=== PATIENT | male | born 1965 | race Caucasian/White ===

== ENCOUNTER 2020-02-22 09:25 | Day surgery (SDC) | payer OTHER, SELFPAY ==
--- NOTE | 2020-02-22 | CT_ITS ---
EXAMINATION: CT COLONOGRAPHY CLINICAL INFORMATION: Incomplete colonoscopy. Partially obstructing mass. COMPARISON: None TECHNIQUE: Bowel preparation: There is retained material. Some of the distal colon is fluid-filled and unevaluable. There is some retained material in the cecum. Stool tagging with Gastrografin and barium: Stool tagging was not used. Colonic distention: CO2 mechanical insufflator used via enema tube with adequate distention. Acquisition: Low dose imaging targeted to colonic was performed in the supine and prone positions. Procedure: No immediate complication reported. Review: The acquired images were reviewed in axial, coronal and sagittal planes. Additional 3-D fly through images were reviewed at an independent workstation. This CT examination was performed using dose optimization techniques as appropriate, variously including the following: *Automated exposure control *Adjustment of mA and/or kV according to patient size (this includes techniques or standardized protocols for targeted exams where dose is matched to indication/reason for exam; i.e. extremities or head) *Use of iterative reconstruction technique DLP: 625 mGy-cm FINDINGS: COLONIC FINDINGS: There is a 4.6 cm long irregular circumferential mass in the proximal colon just prior to the hepatic flexure. This is highly suspicious for malignancy. There is stranding and nodularity in the adjacent mesentery suspicious for adenopathy and I suspect extension through the serosa. There is some wall thickening and muscular hypertrophy in the sigmoid colon suggesting diverticular disease. As described, fluid occupies the entire lumen in portions of the distal colon. This precludes assessment. No convincing suspicious mass or polyp in the colon proximal to the above-described mass. NON-COLONIC FINDINGS: There is no convincing liver lesion. As described, there is some nodularity in the mesentery adjacent to the partially obstructing colonic mass. There are a few nonenlarged retroperitoneal lymph nodes which are nonspecific. No definite measurable omental or peritoneal disease. No free fluid. There are reticular, band-like and nodular lung base opacities. Some of these findings are fibrotic. There is some small airway thickening. However, there are at least a few small nodules which are nonspecific. In this setting, pulmonary metastasis cannot be excluded. CT/CT colonography IMPRESSION: 1. There is an irregular circumferential mass causing narrowing in the proximal colon just prior to the hepatic flexure. This is highly concerning for malignancy. I suspect spread through the serosa with some nodularity in the adjacent mesentery. No convincing hepatic metastasis on this nonenhanced exam. 2. Lung bases abnormalities are nonspecific. Pulmonary metastases cannot be entirely excluded. 3. No evidence of additional disease proximal to the above-described mass.
[2020-02-22 09:30] VITALS: BP 133/86; PULSE 105; RESP 18; TEMP 37.2; O2SAT 95; BMI 35.4
--- NOTE | 2020-02-22 09:33 | MHC.SHP ---
Pre-Procedural Eval Section A The patient is an INPATIENT: No The History & Physical has been completed within 30 days and I have reviewed it.: No Section B Chief Complaint: hx Adenomatous Polyps Details of Present Illness: No symptoms Relevant Family History (Specify if Yes): No Relevant Social History: Tobacco Use (smokes 6 to 10 cigg daily) Present Medications: see Short Stay Collaborative assessment Medical History: Significant History ( right inguinal hernia (seen in [facility] 02-09-13). Gout. Hypertension. ) History of Previous Operations: Relevant previous surgery/procedure and date(s) (RIH repair (BG) 03/11/2013 colonoscopy-polyp removal ) Allergies: Allergies Allergy/AdvReac Type Severity Reaction Status Date / Time omeprazole Allergy Hives Verified 02/16/20 11:08 Review of Systems Sugical H&P ROS: Negative: Constitution, Cardiovascular, Respiratory and Gastrointestinal Exam Surgical H&P Exam: Normal: Heart, Normal: Lungs, Normal: Extremities and Normal: Abdomen Plan Diagnosis/Plan: Unchanged Patient has been examined and remains a candidate for the planned procedure
--- NOTE | 2020-02-22 09:34 | HO.ANESPROP2 ---
HPI - Anesthesia Eval Consult details Narrative: current smoker 0.5 ppd for 10 yrs PMFSH Past Medical History Medical History (Updated 02/22/20 @ 09:37 by Steve Amato MD) Current smoker GERD (gastroesophageal reflux disease) History of colon polyps HTN (hypertension) Hx of gout Hx of sarcoidosis Surgical History Surgical History (Updated 02/16/20 @ 11:08 by Estrellita Guerra) Hx of colonoscopy Hx of right inguinal hernia repair History of Problems with Anesthesia: No Social History Social History Smoking Status: Current every day smoker Use of substances other than those prescribed or required for medical reasons: No Advance Directives: No Advance Directives Information Provided: No Recently lost weight without trying: No Meds Allergies Allergy/AdvReac Type Severity Reaction Status Date / Time omeprazole Allergy Hives Verified 02/16/20 11:08 Home Medications Medication Instructions Recorded Confirmed Type allopurinol 300 mg PO DAILY 02/16/20 02/16/20 History atenolol 50 mg PO DAILY 02/16/20 02/16/20 History Exam Exam Date and Time: February 22, 2020 0934 Height,Weight and Vital Signs: Height 5 ft 9 in Weight 108.862 kg Airway Mallampati Class: I TM Dist: <=3cm Neck ROM: Full Loose/Missing/Broken Teeth: No Heart: rrr Lungs: ctab Assessment and Plan Assessment Anesthesia Assessment: Anesthesia Plan Discussed, Smoking Cess. Discussed and Chart Reviewed Final Anesthetic Review NPO: Yes ASA Class: II Final Preanesthetic Review: No Changes in Pt Med Stat, Meds/Allgs Chart Reviewed, Consent Obtained/Reviewed and Anes Risks/Benef Reviewed Patient Risk: Intermediate Procedure Risk: Intermediate Assessment/Block/Sedation in SS: Assess/Block/Sedation-SS Anesthetic Plan Anesthetic Plan: MAC: Disposition: Standard PACU
--- NOTE | 2020-02-22 09:37 | PM.OP ---
Brief Operative Note Date of procedure: 02/23/20 Pre-op diagnosis: Colon cancer screening Post-op diagnosis: other (TC mass, colon polyps, diverticulosis) Procedure: COLONOSCOPY TILL CECUM WITH BIOPSIES, SNARE POLYPECTOMY AND SUBMUCOSAL INJECTION Consent: Indications for the procedure and potential complications of bleeding, perforation, reaction to medications and missed diagnosis were discussed with the patient and informed consent was obtained. Instrument: Olympus PCF H 190 L variable stiffness pediatric colonoscope Monitoring: Vital signs and clinical assessment, intermittent blood pressure monitoring, continuous EKG monitoring, Pulse oximetry and Carbon Dioxide monitoring were done throughout the procedure. Colon withdrawl time was 20 minutes. Procedure: The patient was placed in the left lateral decubitis position and pre-procedure medications were administered. After a digital rectal examination of the ano-rectum, the video colonoscope was inserted into the rectum and advanced through the colon to the TC at 90 cms. It was not possible to advance further due to partially obstructing mass. The colonoscope was slowly withdrawn in a retrograde panoramic fashion and the colon mucosa was carefully examined including a retroflexed view of the rectum. Findings and interventions are described below. Procedure Difficulty: Without difficulty Findings: Terminal Ileum: Not evaluated Cecum: Not evaluated Ascending Colon: not evaluated Transverse Colon: A friable, circumferential polypoidal partially obstructing mass in the mid AC at 90 cms - multiple biopsies were obtained. Area was marked by tamara ink (submucosal injection). Unable to advance a pediatric colonoscope through the mass due to luminal narrowing. A 10 mm pedunculated polyp at 80 cms removed with a hot snare - some bleeding noted at polypectomy site controlled with cautery using the snare tip. A 4-5 mm sessile polyp removed with a cold bx. Descending Colon: Normal Sigmoid Colon: Two 9-10 mm sessile polyps, removed with a hot snare. Moderate diverticulosis Rectum: A 10-12 mm sessile polyp removed with a hot snare. Ano-rectum: Normal Colon preparation: Good Impression and Post Procedure Diagnosis: Colonoscopy Findings: A friable, circumferential polypoidal obstructing mass at 90 cms - multiple biopsies were obtained. Unable to advance a pediatric colonoscope through the mass. 5 polyps removed Moderate diverticulosis seen in the sigmoid colon Plan: Await pathology results. Schedule CT colonography today. Pt was urgently referred to General Surgery and Oncology Patient to schedule a FU appointment in the GI Clinic with Yumiko Carter NP. Repeat Colonoscopy in 6 -12 months. Above findings were reviewed with the patient and colon polyps and diverticulosis handouts were given in the discharge area ADDENDUM: CT colonography was reviewed with Radiology and preliminary results show actual location of the mass is in the mid Ascending colon. Enlarged retroperitoneal LN were also noted. ADDENDUM: BIOPSIES SHOWED: A. Colon, transverse mass at 90 cm, biopsy: Invasive adenocarcinoma, moderately differentiated (see comment). B. Colon, transverse polyps, polypectomies: Tubular adenoma (s); inflamed hyperplastic polyp; negative for high-grade dysplasia. C. Colon, sigmoid polyps, polypectomies: Tubular adenoma (s); hyperplastic polyp; negative for high-grade dysplasia. D. Rectum, polypectomy: Hyperplastic polyp. COMMENT: Immunohistochemistry for DNA mismatch repair proteins have been ordered and results will be reported in an addendum. Surgeon: Steve Amato MD Anesthesia: MAC (Joanie Kirby CRNA) [employer] Finisher: Doreen Fatima Estimated blood loss (mL): 0 Pathology: other (A. Colon, transverse mass at 90 cm, B. Colon, transverse polyps, C. Colon, sigmoid polyps, D. Rectal polyp) Condition: stable Disposition: PACU
[2020-02-22] MEDS: Lactated Ringers 1,000 ML 100 ML IVCONT (09:52)
[2020-02-22 09:53] VITALS: TEMP 36.9
--- NOTE | 2020-02-22 09:55 | HO.ANESPROP2 ---
HPI - Anesthesia Eval Consult details Narrative: 54 year old patient here for colonoscopy PMFSH Past Medical History Medical History (Updated 02/22/20 @ 10:01 by Johana Valentine) Current smoker GERD (gastroesophageal reflux disease) History of colon polyps HTN (hypertension) Hx of gout Hx of sarcoidosis Increased BMI Family History Family history of problems with anesthesia: No Surgical History Surgical History (Updated 02/16/20 @ 11:08 by Estrellita Guerra) Hx of colonoscopy Hx of right inguinal hernia repair History of Problems with Anesthesia: No Social History Social History Smoking Status: Current every day smoker Use of substances other than those prescribed or required for medical reasons: No Advance Directives: No Advance Directives Information Provided: No Recently lost weight without trying: No Meds Allergies Allergy/AdvReac Type Severity Reaction Status Date / Time omeprazole Allergy Hives Verified 02/16/20 11:08 Home Medications Medication Instructions Recorded Confirmed Type allopurinol 300 mg PO DAILY 02/16/20 02/16/20 History atenolol 50 mg PO DAILY 02/16/20 02/16/20 History Exam Exam Date and Time: February 22, 2020 0955 Height,Weight and Vital Signs: Height 5 ft 9 in Weight 108.862 kg Last Vital Signs Temp 98.4 F 02/22/20 09:53 Pulse 105 H 02/22/20 09:30 Resp 18 02/22/20 09:30 BP 133/86 02/22/20 09:30 Pulse Ox 95 02/22/20 09:30 Airway Mallampati Class: III TM Dist: >3cm Neck ROM: Full Loose/Missing/Broken Teeth: No (Crowns intact) Heart: RRR Lungs: CTAB Assessment and Plan Assessment Anesthesia Assessment: Anesthesia Plan Discussed and Chart Reviewed Final Anesthetic Review NPO: Yes ASA Class: III Final Preanesthetic Review: No Changes in Pt Med Stat, Meds/Allgs Chart Reviewed, Consent Obtained/Reviewed and Anes Risks/Benef Reviewed Patient Risk: Intermediate Procedure Risk: Low Anesthetic Plan Anesthetic Plan: MAC: Disposition: Standard PACU
[2020-02-22 10:47] VITALS: BP 114/63; PULSE 98; RESP 20; TEMP 37.3; O2SAT 94
[2020-02-22 11:01] VITALS: BP 122/81; PULSE 87; RESP 18; O2SAT 93
--- NOTE | 2020-02-22 12:51 | HO.POSTANES ---
Post Anesthesia Evaluation Post Anesthesia Evaluation Vital Signs: Vital Signs Temp Pulse Resp BP Pulse Ox 02/22/20 11:01 99.2 F 87 18 122/81 93 02/22/20 10:47 99.2 F 98 20 114/63 94 02/22/20 09:53 98.4 F 02/22/20 09:30 99 F 105 H 18 133/86 95 Anesthesia: Monitored Mental Status: Awake Pain Control: Satisfactory Nausea/Vomiting: None Hydration: Adequate Anesthesia-Related Issues: No Anes. Related Issues
== END 2020-02-22 12:58 | disposition home or self-care (01) ==
PROVIDERS: PCP Internal Medicine; Visit Provider Internal Medicine Gastroenterology
PROC: 0DJD8ZZ Inspection of Lower Intestinal Tract, Via Natural or Artificial Opening Endoscopic (ICD-10-PCS; CPT 45378; principal; 2020-02-22 11:00)
DX: Z12.11 Encounter for screening for malignant neoplasm of colon (principal); Z86.010 Personal history of colon polyps; C18.2 Malignant neoplasm of ascending colon; D12.3 Benign neoplasm of transverse colon; D12.5 Benign neoplasm of sigmoid colon; K62.1 Rectal polyp; R59.0 Localized enlarged lymph nodes; K57.30 Diverticulosis of large intestine without perforation or abscess without bleeding; K21.9 Gastro-esophageal reflux disease without esophagitis; I10 Essential (primary) hypertension; D86.9 Sarcoidosis, unspecified; F17.210 Nicotine dependence, cigarettes, uncomplicated; Z79.899 Other long term (current) drug therapy
CPT/HCPCS: 45385; 45380; 45381; 74261; 88305; 88341; 88342

== ENCOUNTER → 2020-02-25 13:39 | Outpatient (BNVA) | payer OTHER, SELFPAY | PROVIDERS: PCP Internal Medicine; Visit Provider Surgery | DX: Z76.89 Persons encountering health services in other specified circumstances (principal) ==

== ENCOUNTER → 2020-02-29 09:55 | Outpatient (BNV) | payer OTHER, MEDICAID, SELFPAY | PROVIDERS: PCP Internal Medicine; Visit Provider Internal Medicine | DX: C18.4 Malignant neoplasm of transverse colon (principal); C77.8 Secondary and unspecified malignant neoplasm of lymph nodes of multiple regions; Z92.21 Personal history of antineoplastic chemotherapy; Z86.711 Personal history of pulmonary embolism | CPT/HCPCS: 99212; 99213; 99214; G2211 ==

== ENCOUNTER 2020-03-08 07:42 | Inpatient (IN) | payer OTHER, SELFPAY ==
[2020-03-03 19:25] VITALS: BMI 36.0
--- NOTE | 2020-03-07 09:41 | P.CONAN_ITS ---
Documented by User: Luly Nathan 03/07/20 09:44 HPI - Anesthesia Eval Consult details Narrative: 54yo M for Bowel Resection Laparoscopic, Poss open s/p colonoscopy 02/22/20 [facility] Past Medical History Medical History Colon cancer Current smoker GERD (gastroesophageal reflux disease) Gout History of colon polyps HTN (hypertension) Hx of gout Hx of sarcoidosis Increased BMI Indigestion Mass of colon Surgical History Surgical History H/O inguinal hernia repair Hx of colonoscopy Hx of right inguinal hernia repair History of Problems with Anesthesia: No Social History Social History Smoking Status: Current every day smoker Tobacco Type: Cigarette Packs Per Day: 0.5 Cigarettes Per Day: 10.0 Years Smoked: 10 Smoked in Last 30 Days: Yes Advance Directives Date on File: 02/29/20 Meds Allergies Allergy/AdvReac Type Severity Reaction Status Date / Time omeprazole Allergy Hives Verified 03/08/20 07:39 Home Medications Medication Instructions Recorded Confirmed Type allopurinol 300 mg PO DAILY 02/16/20 03/03/20 History atenolol 50 mg PO DAILY 02/16/20 03/03/20 History Exam Exam Date and Time: March 07, 2020 0941 Height,Weight and Vital Signs: Height 5 ft 9 in Weight 110.677 kg Pertinent Lab Results Pertinent Lab Results: Laboratory Tests 03/01/20 03/01/20 08:36 08:36 WBC 8.8 Hgb 13.2 L Hct 41.8 L Plt Count 289 Sodium 139 Potassium 4.3 Chloride 106 BUN 10 Creatinine 0.92 Assessment and Plan Assessment Anesthesia Assessment: Chart Reviewed Documented by User: Mindy Teague 03/08/20 09:22 [facility] Past Medical History Medical History Colon cancer Current smoker GERD (gastroesophageal reflux disease) Gout History of colon polyps HTN (hypertension) Hx of gout Hx of sarcoidosis Increased BMI Indigestion Mass of colon Surgical History Surgical History H/O inguinal hernia repair Hx of colonoscopy Hx of right inguinal hernia repair Social History Social History Smoking Status: Current every day smoker Tobacco Type: Cigarette Packs Per Day: 0.5 Cigarettes Per Day: 10.0 Years Smoked: 10 Smoked in Last 30 Days: Yes Advance Directives Date on File: 02/29/20 Meds Allergies Allergy/AdvReac Type Severity Reaction Status Date / Time omeprazole Allergy Hives Verified 03/08/20 07:39 Home Medications Medication Instructions Recorded Confirmed Type allopurinol 300 mg PO DAILY 02/16/20 03/03/20 History atenolol 50 mg PO DAILY 02/16/20 03/03/20 History Exam Airway Mallampati Class: II TM Dist: >3cm Neck ROM: Full Heart: rrr Lungs: cta Assessment and Plan Assessment Anesthesia Assessment: Anesthesia Plan Discussed and Chart Reviewed Final Anesthetic Review NPO: Yes ASA Class: III Final Preanesthetic Review: No Changes in Pt Med Stat, Meds/Allgs Chart Reviewed, Consent Obtained/Reviewed and Anes Risks/Benef Reviewed Patient Risk: Intermediate Procedure Risk: Intermediate Assessment/Block/Sedation in SS: Assess/Block/Sedation-SS Anesthetic Plan Anesthetic Plan: GA Disposition: Standard PACU
[2020-03-08] VITALS (16 sets, daily range): BP systolic 112–149; BP diastolic 69–96; PULSE 84–96; RESP 16–20; TEMP 36.6–37.4; O2SAT 91–98
[2020-03-08] MEDS: Lactated Ringers 1,000 ML 100 ML IVCONT ×2 (08:28→15:27)
[2020-03-08 08:40] LABS: SARS COV2 PCR INHOUSE NEGATIVE (Negative)
--- NOTE | 2020-03-08 08:52 | MHC.SHP ---
Pre-Procedural Eval Section B Chief Complaint: Colon Cancer Allergies: Allergies Allergy/AdvReac Type Severity Reaction Status Date / Time omeprazole Allergy Hives Verified 03/08/20 07:39 Plan Patient has been examined and remains a candidate for the planned procedure
--- NOTE | 2020-03-08 08:58 | PC.NURSE ---
PATIENT DAILY SMOKER, STATES I SMOKED 2 CIGARETTES THIS MORNING. LUNG SOUNDS ASSESSED BY THIS RN, FOUND TO BE DIM THROUGHOUT W/ POSTERIOR EXPIRATORY WHEEZES. RESPIRATORY ALBUTEROL UPDRAFT ORDERED & RESP. THERAPISTS NOTIFIED. WHILE AWAITING TREATMENT, PATIENT REASSESSED BY ANESTHESIA NORBERTO HARVEY WHO CLEARED PATIENT TO PROCEED WITH SURGICAL PROCEDURE WITHOUT UPDRAFT BEING ADMINISTERED.
--- NOTE | 2020-03-08 10:05 | P.CONAN_ITS ---
FORMERLY [facility], [facility] Past Medical History Medical History Colon cancer Current smoker GERD (gastroesophageal reflux disease) Gout History of colon polyps HTN (hypertension) Hx of gout Hx of sarcoidosis Increased BMI Indigestion Mass of colon Surgical History Surgical History H/O inguinal hernia repair Hx of colonoscopy Hx of right inguinal hernia repair Social History Social History Smoking Status: Current every day smoker Tobacco Type: Cigarette Packs Per Day: 0.5 Cigarettes Per Day: 10.0 Years Smoked: 10 Smoked in Last 30 Days: Yes Advance Directives Date on File: 02/29/20 Meds Allergies Allergy/AdvReac Type Severity Reaction Status Date / Time omeprazole Allergy Hives Verified 03/08/20 07:39 Home Medications Medication Instructions Recorded Confirmed Type allopurinol 300 mg PO DAILY 02/16/20 03/03/20 History atenolol 50 mg PO DAILY 02/16/20 03/03/20 History Exam Exam Date and Time: March 08, 2020 1005 Height,Weight and Vital Signs: Height 5 ft 9 in Weight 110.677 kg Last Vital Signs Temp 97.9 F 03/08/20 08:04 Pulse 84 03/08/20 08:04 Resp 16 03/08/20 08:04 BP 139/91 H 03/08/20 08:04 Pulse Ox 98 03/08/20 08:04 Pertinent Lab Results Pertinent Lab Results: Laboratory Tests 03/08/20 03/08/20 07:31 08:00 Coronavirus (PCR) NEGATIVE Blood Type A Positive Antibody Screen NEGATIVE
--- NOTE | 2020-03-08 13:01 | MHC.HEMONCSW ---
ORDERED...CT CHEST WITH C AND CT ABD/PELVIS W&WO C. AUTH FOR BOTH... [id number] DATE RANGE... 03/07/20 TO 09/03/20.
[2020-03-08] MEDS: fentaNYL citrate/PF 100 MCG/2 ML VIAL 50 MCG IVPUSH ×2 (13:32→13:47)
--- NOTE | 2020-03-08 13:32 | PM.OP ---
Brief Operative Note Date of procedure: 03/08/20 Pre-op diagnosis: right colon ca Procedure: hand assisted laparoscopic right colon resection Surgeon: Gary Tijerina MD Anesthesia: GET[employer] Commanding Officer: Nir Smith Estimated blood loss (mL): 30 Pathology: other (right colon) Condition: stable Disposition: PACU
[2020-03-08] MEDS: Morphine Sulfate 4 MG/ML CARTRIDGE 3 MG IVPUSH (15:23)
--- NOTE | 2020-03-08 15:54 | P.CONIM_ITS ---
History of Present Illness Data of Consult Service Date: 03/08/20 Requesting physician: Gary Tijerina Primary Care Provider: Roddy Herrera MD [facility] Reason for consult: medication management 54-year-old male admitted to surgery service for elective colon resection for colon cancer, patient seen and examined at bedside, patient was reporting pain at surgical site denies any chest pain or shortness of breath, denies any fever or chills Review of Systems Constitutional: Constitutional: Reports weakness Cardiovascular: Cardiovascular: Denies chest pain and Denies dyspnea Respiratory: Respiratory: Denies dyspnea Gastrointestinal: Gastrointestinal: Reports abdominal pain Neurologic: Denies focal weakness and Reports weakness PMFSH Medical History (Updated 03/08/20 @ 15:59 by Lazaro Lopez MD) Colon cancer Current smoker GERD (gastroesophageal reflux disease) Gout History of colon polyps HTN (hypertension) Hx of gout Hx of sarcoidosis Increased BMI Indigestion Mass of colon Surgical History H/O inguinal hernia repair Hx of colonoscopy Hx of right inguinal hernia repair Social History Smoking Status: Current every day smoker Tobacco Type: Cigarette Packs Per Day: 0.5 Cigarettes Per Day: 10.0 Years Smoked: 10 Advance Directives: Yes Advance Directives Information Provided: Yes Advance Directives on File: Yes Advance Directives Date on File: 02/29/20 Meds Allergies Allergy/AdvReac Type Severity Reaction Status Date / Time omeprazole Allergy Hives Verified 03/08/20 07:39 Home Medications Medication Instructions Recorded Confirmed Type allopurinol 300 mg PO DAILY 02/16/20 03/03/20 History atenolol 50 mg PO DAILY 02/16/20 03/03/20 History Physical Exam Vital Signs and Narrative: Vital Signs: Last Vital Signs Temp 98.6 F 03/08/20 15:21 Pulse 88 03/08/20 15:21 Resp 20 03/08/20 15:21 BP 148/90 H 03/08/20 15:21 Pulse Ox 96 03/08/20 15:21 Body Mass Index 36.0 Const: General: alert Orientation/consciousness: patient oriented x3 Resp: Effort & Inspection: normal respiratory effort Auscultation: clear to auscultation bilaterally Cardio: Jugular venous distension: no JVD GI: Palpation (GI): Tenderness to palpation present (GI) ( tender at surgical site) Neuro: General: patient oriented x3 Results Labs Labs: Laboratory Tests 03/08/20 03/08/20 07:31 08:00 Coronavirus (PCR) NEGATIVE Blood Type A Positive Antibody Screen NEGATIVE Assessment and Plan (1) Colon cancer: Status: Acute (2) Gout: Status: Acute (3) Increased BMI: Status: Acute (4) GERD (gastroesophageal reflux disease): Status: Acute (5) HTN (hypertension): Status: Acute 54-year-old male admitted to surgery service for elective colectomy for colon cancer Status post colectomy recently diagnosed with adenocarcinoma of colon management per surgery Hypertension continue atenolol History of gout continue allopurinol Chronic smoker counseled on smoking cessation Reported drinks 4 -5 beers daily no signs of withdrawal at this time Will place on [place] protocol monitor for withdrawal DVT prophylaxis heparin subcu
[2020-03-08] MEDS: Heparin Sodium,Porcine 5,000 UNIT/ML VIAL 5000 UNIT SUBCUT (16:14)
--- NOTE | 2020-03-08 16:36 | PM.EVENT ---
Event Note Event Note: Underwent right colon resection earlier for very bulky tumor c/o incisional pain abd soft, dressings dry good UO incentive spirometry add PO oxycodone, increase Morphine to 4 mg called his sister multiple times to update - not picking up pain mgt explained above to pt
--- NOTE | 2020-03-08 16:56 | OP_ITS ---
SURGEON: Gary Tijerina MD INDICATIONS: The patient is a 54-year-old male, who had recently undergone colonoscopy with Dr. Amato and there was note of a mass with luminal narrowing in the area of what was near the hepatic flexure. The colonoscopy was incomplete because of the luminal narrowing, so the patient underwent virtual colonoscopy which showed that the mass was in the distal ascending colon. Biopsy of this had shown invasive adenocarcinoma. I had a long discussion with the patient about treatment, which would require surgical resection of the right colon. I reviewed him the technique of hand-assisted laparoscopic right colon resection with possible open resection. I reviewed the risks including, but not limited to bleeding, infections, anastomotic leak, blood clots, pneumonia, obstruction, also the benefits and alternatives. He had multiple medical issues including smoking and morbid obesity, so he understood that his perioperative risk for the above were higher than average. PREOPERATIVE DIAGNOSIS: Right colon cancer at the ascending colon. POSTOPERATIVE DIAGNOSIS: Right colon cancer at the ascending colon. PROCEDURE PERFORMED: Hand-assisted laparoscopic right colon resection. ESTIMATED BLOOD LOSS: COMPLICATIONS: ANESTHESIA: ASSISTANTS: SPECIMENS: PSYCHOTHERAPIST SOCIAL WORKER: Nir Smith MD DESCRIPTION OF PROCEDURE: He was brought to the operating room, placed supine on the table under general anesthesia via endotracheal tube. The abdomen was prepped and draped in usual sterile fashion. A Johns catheter has been inserted without difficulty. A surgical time-out was done. The patient received Cefotan 2 g IV preoperatively. A short midline incision made in the skin above the umbilicus using blade #15. This was carried down to full-thickness skin and thick subcutaneous fat until the fascia was exposed. We gently incised the fascia with electrocautery. We then proceeded to enter the peritoneum by dividing the fascia. We extended the fascial incision to optimize the length of the skin incision. There were no adhesions on palpation inside the abdominal wall on the peritoneal side. Therefore, positioned the Wes wound retractor. We then attached the GelPort through this and the peritoneum was insufflated using a 10 mm port through this GelPort. We then proceeded to place the camera through this port. This was 30 degree 10 mm port camera, and with laparoscopic visualization proceeded to position a 10 mm port in the left upper quadrant with laparoscopic visualization. We then moved the camera through this left upper quadrant port. I therefore placed my hand into the GelPort. With the camera in place, proceeded to then examine the right side of the abdomen. Palpated for the cecum and this was brought into view. I followed the cecum visually along with palpation to the hepatic flexure and there was note of very large mass in the distal right colon involving the hepatic flexure. There was note of dark blue ink on this area which had dissipated throughout the adjacent adipose tissue including the mesentery and the omentum. I was able to palpate all the way, pass the hepatic flexure into the transverse colon. It was noted the patient has a large amount of visceral fat with omentum with his obesity. We proceeded to place another 5 sestamibi port in the left upper quadrant as well and this was used as our working port, although we did switch the camera from this port to the one that had been placed a little more superiorly in the left upper quadrant. We then proceeded to use the LigaSure to carefully separate the omentum from the hepatic flexure. With little bit of difficulty in view of the staining of the entire area with blue dye from the previous colonoscopic inking, making clear identification of the planes with little difficulty. We proceeded to continue to divide, also divided the omentum off the midtransverse colon to separate this and allow us to get better visualization of the proximal transverse. Again, the planes were difficult in the hepatic flexure, so I decided to mobilize the right colon at this point. I used the LigaSure to divide across the ligamentous attachment along the white line of Toldt. I proceeded to march down more proximally into the cecum. Continued to separate the cecum from the rest of the retroperitoneum by dividing the rest of the ligamentous attachments. We also went around the cecum towards the terminal ileum, and used the LigaSure, the rest of the cecum and appendix from its attachments to the lower pelvis. We proceeded with this until we were able to see that the cecum was clearly define. There was note of more ligamentous attachments at the ileocecal valve, which we had to divide to allow us to free up this entire area. By doing so, we were able to now mobilize the cecum all. We were able to visualize and identify the distal ileum joining the cecum at the valve. Again, we followed the right colon all the way to the proximal transfers. The patient had been placed in head-down and [id number] position with mobilization of the cecum. We then placed the patient in a head-up position this time to allow the rest of the transverse colon to hang off the liver. The omentum was somehow covering the entire hepatic flexure and we had to carefully separate this with LigaSure and we were able to clearly see the gallbladder. By doing so, we retracted the gallbladder and the subhepatic space identified, proceeded to retract and pulled down the proximal transverse colon inferiorly to allow us to visualize the hepatic colic ligament. We gently dissected the hepatic colic ligament in layer by layer fashion using the LigaSure until we were able to carefully mobilize this as well. However, in the hepatic flexure, there was note of significant induration of the area probably because of desmoplastic reaction from the tumor. Therefore, we attempted to gently separate the planes in millimeter by millimeter fashion and we had achieved some success as well. We continued to separate and mobilize rest of the right colon off the retroperitoneum while carefully dividing the rest of the filmy fibrous tissue with the LigaSure until we felt that we had the maximal mobilization of the mesentery. I then proceeded to continue to divide more of the adherent omentum off the proximal transverse. We identified the interface of the omentum from the serosa and we proceeded to separate this with the LigaSure all the way to the midtransverse colon. This allowed us to separate the most of the omentum as well from the rest of the upper quadrant. We continued to then carefully divide more of the hepatic colic ligament in a layer by layer fashion using LigaSure. This part of the procedure took extended period of time because of poor visualization from the ink that had diffuse all around this area. Eventually, I was able to do blunt dissection as I had identified the good planes of the transverse from the rest of the right upper quadrant. We were able to gently pull down filmy attachments until. By doing so, we were able to identify the duodenum. This duodenum was carefully protected throughout the rest of the dissection. With the duodenum clearly visualized, we proceeded to continue to dissect across the rest of the hepatocolic ligaments until we were able to clearly mobilize the proximal transverse. We were therefore left with the indurated hepatocolic ligaments at the hepatic flexure. I had to retract the flexure inferiorly to allow me to visualize these layers and gently divide across with the LigaSure. Again, this had to be done in layer by layer fashion to allow safe dissection in view of the presence of blue dye around this entire area. Eventually, we were able to separate the entire hepatic flexure. This very bulky nature of the tumor was seen and palpated. There was note of significant induration of the attached mesentery; however, it appeared that I could palpate a clear part of the mesentery that was supple and did not feel indurated. Once I felt that we had adequate mobilization, identified the attached mesentery of the entire right colon of the transverse. I then created a mesenteric window at the mid part of the transverse using the LigaSure and used an Endo-EDITH 16 mm stapler through one of the ports to divide this proximal transverse colon. The transverse colon was divided, proceeded to then put the attached mesentery on stretch and proceeded to divide across the mesentery with the LigaSure. We marched proximally at the mesentery with care being taken so as to include as much of the lymphoid basin as possible with the mesentery. Once we had reached, we continued to divide across the mesentery until we went past the tumor at the right colon. At this point, proceeded to then divide the terminal ileum. I created mesenteric window, and using Endo-EDITH 60 mm stapler across this, and this was fired and the terminal ileum was transected. I then proceeded to put the mesentery on stretch and to define this, we proceeded to divide the mesentery until we reached the ileocecal pedicle. I had aimed for a high ligation to include the lymph node basin. I gently dissected the pedicle until this was thinned out. I used a vascular stapler to divide across this and this was fired. There was noted to be good hemostasis on the divided pedicle. We then continued to divide the rest of the mesentery with a generous dissection of the lymphoid basin until we met up with the transected mesentery more distally. We then proceeded to remove the specimen by removing the GelPort with the wound retractor in place. We then proceeded to pull up the stapled transverse colon into the field. We had to look for the transected terminal ileum as well and we had to find this laparoscopically and brought it up through the incision. We had to transect both the stump of the transverse colon as well as the terminal ileum as I had wanted to make sure that we had good vascularity of the staple line. We then excised the apex of the staple line using Robertson scissors. The lumen was entered, and I inserted each arm of the stapler into the lumen. We aligned the transverse colon and the terminal ileum in a kypk-[id number]-grda fashion. We locked the stapler and made sure that there was no bowel loop nor mesentery trapped in the staple line. Once this was confirmed, we proceeded to fire the stapler to create our functional [id number] anastomosis. I attached the Allis clamps on the wall and proceeded to align the transected wall together using this Allis clamps. With this aligned, we proceeded to apply the TA 60 mm stapler to complete our anastomosis,Creating this anastomosis was achieved with some difficulty in view of the adherent fat on the anastomosed limbs. I then used a Dexon 3-0 stitch to imbricate the staple line in a running fashion allowing us to buttress this with fat from the omentum. I then copiously irrigated this area and suctioned out the irrigant fluid. I then proceeded to drop the stapled anastomotic site back into the peritoneal cavity. We positioned the GelPort and reexamined the intraabdominal cavity. There was no signs of any bleeding or any bowel injury. I positioned the omentum to allow this to overlie the anastomotic site. I was able to palpate for the lumen and this appeared patent. We reexamined the anastomotic site prior to closure and this appeared viable without any evidence of ischemia. I then desufflated and removed the ports. I closed the fascia of the midline incision running Maxon 1 stitch. I irrigated thick subcutaneous layer. I closed all skin incisions with skin mika. I infiltrated all incisions with Marcaine 0.5% for postop analgesia. Steri-Strips and dressings were then applied. The patient tolerated well with no complications noted. Initial and final counts of sponge and instruments were correct. Estimated blood loss was minimal and the patient was extubated without difficulty and transferred to recovery room with stable vital signs. I had received a call from the pathologist confirming the presence of a large bulky lesion in the right colon with clear gross margins. MD LIANA Macias/ABIGAIL / [id number] TAYLER
[2020-03-08] MEDS: oxyCODONE HCl Immed Release 5 MG TABLET 10 MG PO (16:58)
[2020-03-08] MEDS: Morphine Sulfate 4 MG/ML CARTRIDGE IVPUSH ×2 (18:22→21:55)
[2020-03-08] MEDS: Calcium Carbonate 750 MG TAB.CHEW PO (23:38)
[2020-03-09] VITALS (9 sets, daily range): BP systolic 103–155; BP diastolic 68–97; PULSE 78–96; RESP 18–20; TEMP 36.3–36.8; O2SAT 92–99; BMI 36.0
[2020-03-09] MEDS: Morphine Sulfate 4 MG/ML CARTRIDGE IVPUSH ×4 (00:59→19:02)
[2020-03-09] MEDS: Lactated Ringers 1,000 ML 100 ML IVCONT ×3 (01:04→19:10)
[2020-03-09] MEDS: oxyCODONE HCl Immed Release 5 MG TABLET 10 MG PO ×4 (04:04→22:15)
[2020-03-09] MEDS: Heparin Sodium,Porcine 5,000 UNIT/ML VIAL 5000 UNIT SUBCUT ×2 (04:05→16:18)
[2020-03-09 06:58] LABS: Hematocrit 39.6 % (42-52); Hemoglobin 12.7 g/dl (14.0-18.0); Mean Corpuscular HGB Conc 32.1 g/dl (31.0-36.0); Mean Corpuscular Volume 84.1 fL (80-98); Mean Platelet Volume 10.3 fL (9.4-12.4); Platelet Count 253 X10*3/uL (160-400); Red Blood Count 4.71 X10*6/uL (4.60-5.80); Red Cell Distribution Width 13.9 % (11.0-16.0); White Blood Count 15.3 X10*3/uL (4.8-10.8)
[2020-03-09 07:03] LABS: Anion Gap 14 (12-20); Blood Urea Nitrogen 14 mg/dL (9-16); Carbon Dioxide 23 mmol/L (22-29); Chloride 103 mmol/L (96-108); Creatinine Clr Calc Pharmacy 134.4; Estimated Glomerular Filt Rate > 60; Glucose Random 115 mg/dL (60-115); Potassium 4.2 mmol/l (3.3-5.1); Sodium 136 mmol/L (135-145)
--- NOTE | 2020-03-09 08:11 | P.PNGS_ITS ---
Subjective Subjective Interval history: Says he is ok today Much better pain control overnight No events reported Physical Exam Vital Signs: Vital Signs: Vital Signs Temp Pulse Resp BP Pulse Ox 03/09/20 07:52 97.6 F 83 19 155/97 H 96 03/09/20 05:53 18 03/09/20 03:48 97.8 F 92 20 144/92 H 99 03/09/20 00:59 18 03/08/20 23:11 98.0 F 89 19 149/96 H 95 03/08/20 21:55 18 03/08/20 19:40 98.2 F 96 20 144/86 H 96 03/08/20 15:21 98.6 F 88 20 148/90 H 96 03/08/20 14:20 87 19 94 03/08/20 14:10 87 20 95 03/08/20 13:55 88 18 112/70 93 03/08/20 13:50 90 18 116/69 93 03/08/20 13:47 20 03/08/20 13:45 91 19 122/75 94 03/08/20 13:40 90 20 119/75 95 03/08/20 13:35 93 20 139/83 93 03/08/20 13:32 19 03/08/20 13:30 91 17 118/70 91 L 03/08/20 13:25 99.3 F 95 16 128/80 94 Body Mass Index 36.0 Chemistry 03/09/20 06:01 Sodium 136 Potassium 4.2 Carbon Dioxide 23 BUN 14 Creatinine 0.77 Calcium 8.0 L Hematology 03/09/20 06:01 WBC 15.3 H Hgb 12.7 L Plt Count 253 Const: Other: Appears comfortable General: no acute distress Cardio: Rate: regular rate GI: Other: Soft, dressings dry, no guarding rebound, appropriate incisional tenderness Progress Note: A&P Assessment and plan (1) Colon cancer: Status: Acute Assessment and Plan: Status post right colon resection Await return of GI function Out of bed to chair today Plan to TULIO girard Pain management Continue incentive spirometry -emphasized to patient Elevated WBC likely from postop physiologic stress Fall Risk Details Current Medications: Current Medications Generic Name Dose Route Start Last Admin Trade Name Freq PRN Reason Stop Dose Admin Acetaminophen 1,000 mg 03/08/20 14:00 03/09/20 02:19 Acetaminophen 1,000 Mg/100 Ml Vial IV 1,000 mg Q6H [facility] Administration Albuterol Sulfate 2.5 mg 03/08/20 07:31 Albuterol Sulfate (0.083%) 2.5 Mg/3 Ml Vial.Neb INHALE ONCE PRN Shortness of Breath/Wheezing Allopurinol 300 mg 03/09/20 09:00 Allopurinol 300 Mg Tablet PO DAILY [facility] Atenolol 50 mg 03/09/20 09:00 Atenolol 50 Mg Tablet PO DAILY [facility] Protocol Fentanyl 50 mcg 03/08/20 09:22 03/08/20 13:47 Fentanyl Citrate/Pf 100 Mcg/2 Ml Vial IVPUSH 50 mcg Q5M PRN Administration Pain, Severe (Pain Scale 7-10) Heparin Sodium (Porcine) 5,000 unit 03/08/20 16:00 03/09/20 04:05 Heparin Sodium,Porcine 5,000 Unit/Ml Vial SUBCUT 5,000 unit Q12H ULI Administration Lactated Ringer's 1,000 mls @ 100 mls/hr 03/08/20 07:45 03/09/20 01:04 Lr IVCONT 100 mls/hr .Q10H ULI Administration Promethazine HCl 12.5 mg/ 50.5 mls @ 202 mls/hr 03/08/20 09:22 Sodium Chloride IV ONCE PRN Nausea and Vomiting Morphine Sulfate 4 mg 03/08/20 16:50 03/09/20 05:53 Morphine Sulfate 4 Mg/Ml Cartridge IVPUSH 4 mg Q3H PRN Administration Pain, Severe (Pain Scale 7-10) Ondansetron HCl 4 mg 03/08/20 09:22 Ondansetron Hcl 4 Mg/2 Ml Vial IVPUSH ONCE PRN Nausea and Vomiting Oxycodone HCl 10 mg 03/08/20 16:48 03/09/20 04:04 Oxycodone Hcl Immed Release 5 Mg Tablet PO 10 mg Q4H PRN Administration Pain, Moderate (Pain Scale 4-6 Time Spent With Patient Time: Total time spent is greater than 50% in coordination of care (as documented) at patient's floor/unit and/or counseling patient: Time with patient: 15 - 24 minutes
[2020-03-09] MEDS: allopurinoL 300 MG TABLET PO (09:00)
[2020-03-09] MEDS: atenoloL 50 MG TABLET PO (09:01)
--- NOTE | 2020-03-09 09:28 | MHC.CM.PN ---
nurse care manageement note eectrnic medeical record reviewed alng with case discussed with staff nurse and meeting with patient5 . patient reports that he is active , independdnet in all ads and mobility, he livex alone but has family and friends for support and [facility],he admitted to drinking 3-4 beers daily after work and then again some times ne for a few days , he denies ever having , loss of consciouness, falls, withdrawl symptoms r seizures , and never missed wrk secondary to etoh consumption. he reprted that he is on family leave for 20mdays and then hopes he alvin be able to return t work he has no vna/no dme services in the home, review of the vna agency list with him and he chose the [facility] nursing if needed and rdered by physician , he confirmed pcp as dr ansari , educated about the importance of having a health care proxy shsays he has one but did not find it under historical visits . patient reprted that he is anxious of the unknown as this diagnosis happened so quickly , he just had a routine colonoscopy performed and then was called for a ct of the abdomen, and then scheduled for surgery , he is thinking that he might need chemothearpy. i encouraged him to write his questions down and thoughts.fears so he can discuss them with the medical -surgical team, discharge plan home with no services vs with new referra to the [facility] nrusing post surgical home visit , pain management assedssment, medication reconciation. pcp dr ansari patient to [facility] discharge follow up surgical follow up per discharge instructins transportation family /friends
--- NOTE | 2020-03-09 11:13 | HO.PM.IMPN ---
Subjective Subjective Date of Service: 03/09/20 Interval History: Patient seen examined at bedside patient reported abdominal pain denies any chest pain or shortness of breath Constitutional Constitutional: Reports weakness Cardiovascular Cardiovascular: Denies chest pain and Denies dyspnea Respiratory Respiratory: Denies dyspnea Gastrointestinal Gastrointestinal: Denies vomiting Neurologic Neurologic: Reports weakness Physical Exam Vital Signs: Vital Signs: Vital Signs Temp Pulse Resp BP Pulse Ox 03/09/20 09:01 83 155/97 H 03/09/20 07:52 97.6 F 83 19 155/97 H 96 03/09/20 05:53 18 03/09/20 03:48 97.8 F 92 20 144/92 H 99 03/09/20 00:59 18 03/08/20 23:11 98.0 F 89 19 149/96 H 95 03/08/20 21:55 18 03/08/20 19:40 98.2 F 96 20 144/86 H 96 03/08/20 15:21 98.6 F 88 20 148/90 H 96 03/08/20 14:20 87 19 94 03/08/20 14:10 87 20 95 03/08/20 13:55 88 18 112/70 93 03/08/20 13:50 90 18 116/69 93 03/08/20 13:47 20 03/08/20 13:45 91 19 122/75 94 03/08/20 13:40 90 20 119/75 95 03/08/20 13:35 93 20 139/83 93 03/08/20 13:32 19 03/08/20 13:30 91 17 118/70 91 L 03/08/20 13:25 99.3 F 95 16 128/80 94 Body Mass Index 36.0 Const: General: alert Orientation/consciousness: patient oriented x3 Resp: Effort & Inspection: normal respiratory effort Auscultation: clear to auscultation bilaterally Cardio: Jugular venous distension: no JVD GI: Palpation (GI): Tenderness to palpation present (GI) ( tender at surgical site) Neuro: General: patient oriented x3 Objective Data Current Medications Generic Name Dose Route Start Last Admin Trade Name Freq PRN Reason Stop Dose Admin Acetaminophen 1,000 mg 03/08/20 14:00 03/09/20 09:00 Acetaminophen 1,000 Mg/100 Ml Vial IV 1,000 mg Q6H ULI Administration Albuterol Sulfate 2.5 mg 03/08/20 07:31 Albuterol Sulfate (0.083%) 2.5 Mg/3 Ml Vial.Neb INHALE ONCE PRN Shortness of Breath/Wheezing Allopurinol 300 mg 03/09/20 09:00 03/09/20 09:00 Allopurinol 300 Mg Tablet PO 300 mg DAILY [facility] Administration Atenolol 50 mg 03/09/20 09:00 03/09/20 09:01 Atenolol 50 Mg Tablet PO 50 mg DAILY [facility] Administration Protocol Fentanyl 50 mcg 03/08/20 09:22 03/08/20 13:47 Fentanyl Citrate/Pf 100 Mcg/2 Ml Vial IVPUSH 50 mcg Q5M PRN Administration Pain, Severe (Pain Scale 7-10) Heparin Sodium (Porcine) 5,000 unit 03/08/20 16:00 03/09/20 04:05 Heparin Sodium,Porcine 5,000 Unit/Ml Vial SUBCUT 5,000 unit Q12H ULI Administration Lactated Ringer's 1,000 mls @ 100 mls/hr 03/08/20 07:45 03/09/20 10:17 Lr IVCONT 100 mls/hr .Q10H ULI Administration Promethazine HCl 12.5 mg/ 50.5 mls @ 202 mls/hr 03/08/20 09:22 Sodium Chloride IV ONCE PRN Nausea and Vomiting Morphine Sulfate 4 mg 03/08/20 16:50 03/09/20 05:53 Morphine Sulfate 4 Mg/Ml Cartridge IVPUSH 4 mg Q3H PRN Administration Pain, Severe (Pain Scale 7-10) Ondansetron HCl 4 mg 03/08/20 09:22 Ondansetron Hcl 4 Mg/2 Ml Vial IVPUSH ONCE PRN Nausea and Vomiting Oxycodone HCl 10 mg 03/08/20 16:48 03/09/20 09:00 Oxycodone Hcl Immed Release 5 Mg Tablet PO 10 mg Q4H PRN Administration Pain, Moderate (Pain Scale 4-6 Labs CBC & Chem 7: 03/09/20 06:01 03/09/20 06:01 Assessment and Plan (1) Colon cancer: Status: Acute (2) Gout: Status: Acute (3) Increased BMI: Status: Acute (4) GERD (gastroesophageal reflux disease): Status: Acute (5) HTN (hypertension): Status: Acute Assessment and Plan: 54-year-old male admitted to surgery service for elective colectomy for colon cancer Status post colectomy recently diagnosed with adenocarcinoma of colon awaiting bowel function management per surgery Hypertension continue atenolol History of gout continue allopurinol Chronic smoker counseled on smoking cessation Reported drinks 4 -5 beers daily No signs of withdrawal at this time continue CIWA monitor for withdrawal DVT prophylaxis heparin subcu
--- NOTE | 2020-03-09 12:32 | HO.POSTANES ---
Post Anesthesia Evaluation Post Anesthesia Evaluation Vital Signs: Vital Signs Temp Pulse Resp BP Pulse Ox 03/09/20 11:59 97.3 F 78 18 119/82 94 03/09/20 09:01 83 155/97 H 03/09/20 07:52 97.6 F 83 19 155/97 H 96 03/09/20 05:53 18 03/09/20 03:48 97.8 F 92 20 144/92 H 99 03/09/20 00:59 18 Anesthesia: General Endotracheal-GETA Mental Status: Awake Pain Control: Satisfactory Nausea/Vomiting: None Hydration: Adequate Anesthesia-Related Issues: No Anes. Related Issues
[2020-03-10 03:12] VITALS: BP 112/73; PULSE 102; RESP 20; TEMP 36.8; O2SAT 92
[2020-03-10] MEDS: oxyCODONE HCl Immed Release 5 MG TABLET 10 MG PO ×5 (03:19→23:25)
[2020-03-10] MEDS: Heparin Sodium,Porcine 5,000 UNIT/ML VIAL 5000 UNIT SUBCUT ×2 (03:33→16:19)
[2020-03-10] MEDS: Lactated Ringers 1,000 ML 100 ML IVCONT ×2 (05:15→14:54)
[2020-03-10] MEDS: Morphine Sulfate 4 MG/ML CARTRIDGE IVPUSH ×3 (06:16→17:47)
[2020-03-10 07:41] VITALS: BP 143/84; PULSE 106; RESP 18; TEMP 37.2; O2SAT 94
--- NOTE | 2020-03-10 08:33 | PM.PNGS ---
Subjective Subjective Interval history: Feels well Postop pain well controlled He says he has been ambulating No nausea vomiting Denies flatus Physical Exam Vital Signs: Vital Signs: Vital Signs Temp Pulse Resp BP Pulse Ox 03/10/20 07:41 98.9 F 106 H 18 143/84 H 94 03/10/20 03:12 98.3 F 102 H 20 112/73 92 03/09/20 23:03 98.2 F 95 19 140/91 H 92 03/09/20 19:29 97.6 F 96 20 103/68 92 03/09/20 15:11 98.0 F 90 18 112/77 94 03/09/20 11:59 97.3 F 78 18 119/82 94 03/09/20 09:01 83 155/97 H Body Mass Index 36.0 Const: Other: Looks well General: comfortable and no acute distress Cardio: Rhythm: regular rhythm GI: Other: Soft, no guarding rebound, dressings dry, appropriate incisional tenderness Progress Note: A&P Assessment and plan (1) Colon cancer: Status: Acute Assessment and Plan: Status post right colon resection Await return of GI function Keep on clear liquids Ambulate [facility] Follow up on path report Looks well this morning Incentive spirometry emphasized Fall Risk Details Current Medications: Current Medications Generic Name Dose Route Start Last Admin Trade Name Freq PRN Reason Stop Dose Admin Acetaminophen 1,000 mg 03/08/20 14:00 03/10/20 07:48 Acetaminophen 1,000 Mg/100 Ml Vial IV 1,000 mg Q6H ULI Administration Albuterol Sulfate 2.5 mg 03/08/20 07:31 Albuterol Sulfate (0.083%) 2.5 Mg/3 Ml Vial.Neb INHALE ONCE PRN Shortness of Breath/Wheezing Allopurinol 300 mg 03/09/20 09:00 03/09/20 09:00 Allopurinol 300 Mg Tablet PO 300 mg DAILY ULI Administration Atenolol 50 mg 03/09/20 09:00 03/09/20 09:01 Atenolol 50 Mg Tablet PO 50 mg DAILY ULI Administration Protocol Calcium Carbonate 750 mg 03/09/20 14:12 Calcium Carbonate 750 Mg Tab.Chew PO Q6H PRN Heartburn Fentanyl 50 mcg 03/08/20 09:22 03/08/20 13:47 Fentanyl Citrate/Pf 100 Mcg/2 Ml Vial IVPUSH 50 mcg Q5M PRN Administration Pain, Severe (Pain Scale 7-10) Heparin Sodium (Porcine) 5,000 unit 03/08/20 16:00 03/10/20 03:33 Heparin Sodium,Porcine 5,000 Unit/Ml Vial SUBCUT 5,000 unit Q12H ULI Administration Lactated Ringer's 1,000 mls @ 100 mls/hr 03/08/20 07:45 03/10/20 05:15 Lr IVCONT 100 mls/hr .Q10H ULI Administration Promethazine HCl 12.5 mg/ 50.5 mls @ 202 mls/hr 03/08/20 09:22 Sodium Chloride IV ONCE PRN Nausea and Vomiting Morphine Sulfate 4 mg 03/08/20 16:50 03/10/20 06:16 Morphine Sulfate 4 Mg/Ml Cartridge IVPUSH 4 mg Q3H PRN Administration Pain, Severe (Pain Scale 7-10) Ondansetron HCl 4 mg 03/08/20 09:22 Ondansetron Hcl 4 Mg/2 Ml Vial IVPUSH ONCE PRN Nausea and Vomiting Oxycodone HCl 10 mg 03/08/20 16:48 03/10/20 03:19 Oxycodone Hcl Immed Release 5 Mg Tablet PO 10 mg Q4H PRN Administration Pain, Moderate (Pain Scale 4-6 Time Spent With Patient Time: Total time spent is greater than 50% in coordination of care (as documented) at patient's floor/unit and/or counseling patient: Time with patient: 15 - 24 minutes
[2020-03-10 09:00] VITALS: O2SAT 94
[2020-03-10] MEDS: atenoloL 50 MG TABLET PO (09:15)
[2020-03-10] MEDS: allopurinoL 300 MG TABLET PO (09:15)
--- NOTE | 2020-03-10 11:12 | HO.PM.IMPN ---
Subjective Subjective Interval History: Patient seen and examined at bedside patient reported Some abdominal discomfort still not passing gas Physical Exam Vital Signs: Vital Signs: Vital Signs Temp Pulse Resp BP Pulse Ox 03/10/20 07:41 98.9 F 106 H 18 143/84 H 94 03/10/20 03:12 98.3 F 102 H 20 112/73 92 03/09/20 23:03 98.2 F 95 19 140/91 H 92 03/09/20 19:29 97.6 F 96 20 103/68 92 03/09/20 15:11 98.0 F 90 18 112/77 94 03/09/20 11:59 97.3 F 78 18 119/82 94 Body Mass Index 36.0 Const: General: alert Orientation/consciousness: patient oriented x3 Resp: Effort & Inspection: normal respiratory effort Auscultation: clear to auscultation bilaterally Cardio: Jugular venous distension: no JVD GI: Palpation (GI): Tenderness to palpation present (GI) ( tender at surgical site) Neuro: General: patient oriented x3 Objective Data Current Medications Generic Name Dose Route Start Last Admin Trade Name Freq PRN Reason Stop Dose Admin Acetaminophen 1,000 mg 03/08/20 14:00 03/10/20 07:48 Acetaminophen 1,000 Mg/100 Ml Vial IV 1,000 mg Q6H ULI Administration Albuterol Sulfate 2.5 mg 03/08/20 07:31 Albuterol Sulfate (0.083%) 2.5 Mg/3 Ml Vial.Neb INHALE ONCE PRN Shortness of Breath/Wheezing Allopurinol 300 mg 03/09/20 09:00 03/10/20 09:15 Allopurinol 300 Mg Tablet PO 300 mg DAILY ULI Administration Atenolol 50 mg 03/09/20 09:00 03/10/20 09:15 Atenolol 50 Mg Tablet PO 50 mg DAILY ULI Administration Protocol Calcium Carbonate 750 mg 03/09/20 14:12 Calcium Carbonate 750 Mg Tab.Chew PO Q6H PRN Heartburn Fentanyl 50 mcg 03/08/20 09:22 03/08/20 13:47 Fentanyl Citrate/Pf 100 Mcg/2 Ml Vial IVPUSH 50 mcg Q5M PRN Administration Pain, Severe (Pain Scale 7-10) Heparin Sodium (Porcine) 5,000 unit 03/08/20 16:00 03/10/20 03:33 Heparin Sodium,Porcine 5,000 Unit/Ml Vial SUBCUT 5,000 unit Q12H ULI Administration Lactated Ringer's 1,000 mls @ 100 mls/hr 03/08/20 07:45 03/10/20 05:15 Lr IVCONT 100 mls/hr .Q10H ULI Administration Promethazine HCl 12.5 mg/ 50.5 mls @ 202 mls/hr 03/08/20 09:22 Sodium Chloride IV ONCE PRN Nausea and Vomiting Morphine Sulfate 4 mg 03/08/20 16:50 03/10/20 06:16 Morphine Sulfate 4 Mg/Ml Cartridge IVPUSH 4 mg Q3H PRN Administration Pain, Severe (Pain Scale 7-10) Ondansetron HCl 4 mg 03/08/20 09:22 Ondansetron Hcl 4 Mg/2 Ml Vial IVPUSH ONCE PRN Nausea and Vomiting Oxycodone HCl 10 mg 03/08/20 16:48 03/10/20 09:16 Oxycodone Hcl Immed Release 5 Mg Tablet PO 10 mg Q4H PRN Administration Pain, Moderate (Pain Scale 4-6 Labs CBC & Chem 7: 03/09/20 06:01 03/09/20 06:01 Assessment and Plan (1) Colon cancer: Status: Acute (2) Gout: Status: Acute (3) Increased BMI: Status: Acute (4) GERD (gastroesophageal reflux disease): Status: Acute (5) HTN (hypertension): Status: Acute Assessment and Plan: 54-year-old male admitted to surgery service for elective colectomy for colon cancer Status post colectomy recently diagnosed with adenocarcinoma of colon awaiting bowel function management per surgery Hypertension continue atenolol History of gout continue allopurinol Chronic smoker counseled on smoking cessation Reported drinks 4 -5 beers daily No signs of withdrawal at this time DVT prophylaxis heparin subcu Medicine will sign off call us with question
[2020-03-10 11:32] VITALS: BP 102/63; PULSE 97; RESP 18; TEMP 36.8; O2SAT 94
--- NOTE | 2020-03-10 14:35 | MHC.CM.PN ---
PER REVIEW OF PROGRESS NOTE, CURRENTLY AWAITING RETURN OF GI FUNCTION. PATIENT PLAN IS TO RETURN HOME WITH A NEW REFERRAL TO [facility] FOR RN SKILLS. AGENCY UPDATED IN [facility].
[2020-03-10 15:37] VITALS: BP 107/70; PULSE 96; RESP 18; TEMP 36.7; O2SAT 97
[2020-03-10 19:51] VITALS: BP 121/76; PULSE 94; RESP 18; TEMP 36.6; O2SAT 99
[2020-03-11] VITALS (7 sets, daily range): BP systolic 104–152; BP diastolic 64–79; PULSE 90–98; RESP 16–19; TEMP 36.1–37.3; O2SAT 92–98
[2020-03-11] MEDS: Lactated Ringers 1,000 ML 100 ML IVCONT (00:19)
[2020-03-11] MEDS: oxyCODONE HCl Immed Release 5 MG TABLET 10 MG PO ×4 (03:46→20:56)
[2020-03-11] MEDS: Heparin Sodium,Porcine 5,000 UNIT/ML VIAL 5000 UNIT SUBCUT ×2 (03:46→16:03)
[2020-03-11] MEDS: atenoloL 50 MG TABLET PO (07:33)
[2020-03-11] MEDS: allopurinoL 300 MG TABLET PO (07:34)
[2020-03-11 09:26] LABS: Hematocrit 34.3 % (42-52); Hemoglobin 10.8 g/dl (14.0-18.0); Mean Corpuscular HGB Conc 31.5 g/dl (31.0-36.0); Mean Corpuscular Hemoglobin 26.7 pg (27.0-33.0); Mean Corpuscular Volume 84.7 fL (80-98); Mean Platelet Volume 10.4 fL (9.4-12.4); Platelet Count 221 X10*3/uL (160-400); Red Blood Count 4.05 X10*6/uL (4.60-5.80); Red Cell Distribution Width 14.3 % (11.0-16.0); White Blood Count 11.2 X10*3/uL (4.8-10.8)
--- NOTE | 2020-03-11 09:28 | PM.PNGS ---
Subjective Subjective Interval history: feels well denies flatus no N/V says he has been ambulating a lot has appropriate incisional pain Physical Exam Vital Signs: Vital Signs: Last Vital Signs Temp 97.0 F 03/11/20 08:00 Pulse 92 03/11/20 08:00 Resp 18 03/11/20 08:00 BP 134/79 03/11/20 08:00 Pulse Ox 95 03/11/20 08:00 Body Mass Index 36.0 Const: Other: looks well General: comfortable and no acute distress Cardio: Rate: regular rate GI: Other: mildly distended, incision clean, dry Palpation (GI): Soft to palpation, not firm, no guarding and not rigid Progress Note: A&P Assessment and plan (1) Colon cancer: Status: Acute Assessment and Plan: S/P right colon resection no flatus yet - await return of GI function will keep on clear liquids ambulate pain mgt he looks well otherwise Fall Risk Details Current Medications: Current Medications Generic Name Dose Route Start Last Admin Trade Name Freq PRN Reason Stop Dose Admin Acetaminophen 1,000 mg 03/08/20 14:00 03/11/20 07:33 Acetaminophen 1,000 Mg/100 Ml Vial IV 1,000 mg Q6H ULI Administration Albuterol Sulfate 2.5 mg 03/08/20 07:31 Albuterol Sulfate (0.083%) 2.5 Mg/3 Ml Vial.Neb INHALE ONCE PRN Shortness of Breath/Wheezing Allopurinol 300 mg 03/09/20 09:00 03/11/20 07:34 Allopurinol 300 Mg Tablet PO 300 mg DAILY ULI Administration Atenolol 50 mg 03/09/20 09:00 03/11/20 07:33 Atenolol 50 Mg Tablet PO 50 mg DAILY ULI Administration Protocol Calcium Carbonate 750 mg 03/09/20 14:12 Calcium Carbonate 750 Mg Tab.Chew PO Q6H PRN Heartburn Fentanyl 50 mcg 03/08/20 09:22 03/08/20 13:47 Fentanyl Citrate/Pf 100 Mcg/2 Ml Vial IVPUSH 50 mcg Q5M PRN Administration Pain, Severe (Pain Scale 7-10) Heparin Sodium (Porcine) 5,000 unit 03/08/20 16:00 03/11/20 03:46 Heparin Sodium,Porcine 5,000 Unit/Ml Vial SUBCUT 5,000 unit Q12H ULI Administration Promethazine HCl 12.5 mg/ 50.5 mls @ 202 mls/hr 03/08/20 09:22 Sodium Chloride IV ONCE PRN Nausea and Vomiting Morphine Sulfate 4 mg 03/08/20 16:50 03/10/20 17:47 Morphine Sulfate 4 Mg/Ml Cartridge IVPUSH 4 mg Q3H PRN Administration Pain, Severe (Pain Scale 7-10) Ondansetron HCl 4 mg 03/08/20 09:22 Ondansetron Hcl 4 Mg/2 Ml Vial IVPUSH ONCE PRN Nausea and Vomiting Oxycodone HCl 10 mg 03/08/20 16:48 03/11/20 07:35 Oxycodone Hcl Immed Release 5 Mg Tablet PO 10 mg Q4H PRN Administration Pain, Moderate (Pain Scale 4-6 Time Spent With Patient Time: Total time spent is greater than 50% in coordination of care (as documented) at patient's floor/unit and/or counseling patient: Time with patient: 15 - 24 minutes
[2020-03-11 09:53] LABS: Anion Gap 11 (12-20); Blood Urea Nitrogen 9 mg/dL (9-16); Calcium 7.2 mg/dL (8.4-10.2); Carbon Dioxide 27 mmol/L (22-29); Chloride 102 mmol/L (96-108); Creatinine Clr Calc Pharmacy 126.2; Estimated Glomerular Filt Rate > 60; Glucose Random 128 mg/dL (60-115); Potassium 3.6 mmol/l (3.3-5.1); Sodium 136 mmol/L (135-145)
--- NOTE | 2020-03-11 15:51 | PM.EVENT ---
Event Note Event Note: started to pass flatus this afternoon continues to ambulate looks well abd soft, mildly distended WBC down will advance diet slowly seems to be doing well postop full path report still pending
[2020-03-11] MEDS: Morphine Sulfate 4 MG/ML CARTRIDGE IVPUSH ×2 (16:04→19:08)
[2020-03-12] VITALS (10 sets, daily range): BP systolic 112–158; BP diastolic 74–86; PULSE 74–97; RESP 16–19; TEMP 36.2–36.7; O2SAT 93–96
[2020-03-12] MEDS: Morphine Sulfate 4 MG/ML CARTRIDGE IVPUSH ×6 (00:17→23:26)
[2020-03-12] MEDS: oxyCODONE HCl Immed Release 5 MG TABLET 10 MG PO ×4 (02:30→21:00)
[2020-03-12] MEDS: Heparin Sodium,Porcine 5,000 UNIT/ML VIAL 5000 UNIT SUBCUT ×2 (05:44→15:59)
[2020-03-12] MEDS: atenoloL 50 MG TABLET PO (08:34)
[2020-03-12] MEDS: allopurinoL 300 MG TABLET PO (08:34)
--- NOTE | 2020-03-12 09:12 | PM.PNGS ---
Subjective Subjective Interval history: Mr. Guerrero reports some abdominal pain in the right upper quadrant and right lower quadrant. He continues to pass flatus but denies a BM yet. He is tolerating the liquid diet without nausea or vomiting. Physical Exam Vital Signs: Vital Signs: Last Vital Signs Temp 97.3 F 03/12/20 07:40 Pulse 97 03/12/20 07:40 Resp 18 03/12/20 07:40 BP 127/78 03/12/20 07:40 Pulse Ox 96 03/12/20 00:43 Body Mass Index 36.0 Const: Other: Awake and alert, sitting up in a chair, no acute distress Resp: Other: breathing comfortably on room air, no respiratory distress GI: Other: abdomen distended, few bowel sounds, no tympany, incisions are clean, dry, and intact without erythema or discharge Skin: Other: warm and dry, no rash Extrem: Other: no edema Progress Note: A&P Assessment and plan (1) Colon cancer: Status: Acute Assessment and Plan: status post hand assisted laparoscopic right colectomy, POD #4, passing flatus but no BM as of yet. Abdomen is still somewhat distended therefore I will keep him on the liquid diet for now. Encourage patient to ambulate. Wounds are healing nicely without evidence of infection. Await Full return of bowel function. Fall Risk Details Current Medications: Current Medications Generic Name Dose Route Start Last Admin Trade Name Freq PRN Reason Stop Dose Admin Acetaminophen 1,000 mg 03/08/20 14:00 03/12/20 08:34 Acetaminophen 1,000 Mg/100 Ml Vial IV 1,000 mg Q6H ULI Administration Albuterol Sulfate 2.5 mg 03/08/20 07:31 Albuterol Sulfate (0.083%) 2.5 Mg/3 Ml Vial.Neb INHALE ONCE PRN Shortness of Breath/Wheezing Allopurinol 300 mg 03/09/20 09:00 03/12/20 08:34 Allopurinol 300 Mg Tablet PO 300 mg DAILY ULI Administration Atenolol 50 mg 03/09/20 09:00 03/12/20 08:34 Atenolol 50 Mg Tablet PO 50 mg DAILY ULI Administration Protocol Calcium Carbonate 750 mg 03/09/20 14:12 Calcium Carbonate 750 Mg Tab.Chew PO Q6H PRN Heartburn Fentanyl 50 mcg 03/08/20 09:22 03/08/20 13:47 Fentanyl Citrate/Pf 100 Mcg/2 Ml Vial IVPUSH 50 mcg Q5M PRN Administration Pain, Severe (Pain Scale 7-10) Heparin Sodium (Porcine) 5,000 unit 03/08/20 16:00 03/12/20 05:44 Heparin Sodium,Porcine 5,000 Unit/Ml Vial SUBCUT 5,000 unit Q12H ULI Administration Promethazine HCl 12.5 mg/ 50.5 mls @ 202 mls/hr 03/08/20 09:22 Sodium Chloride IV ONCE PRN Nausea and Vomiting Morphine Sulfate 4 mg 03/08/20 16:50 03/12/20 08:34 Morphine Sulfate 4 Mg/Ml Cartridge IVPUSH 4 mg Q3H PRN Administration Pain, Severe (Pain Scale 7-10) Ondansetron HCl 4 mg 03/08/20 09:22 Ondansetron Hcl 4 Mg/2 Ml Vial IVPUSH ONCE PRN Nausea and Vomiting Oxycodone HCl 10 mg 03/08/20 16:48 03/12/20 02:30 Oxycodone Hcl Immed Release 5 Mg Tablet PO 10 mg Q4H PRN Administration Pain, Moderate (Pain Scale 4-6 Time Spent With Patient Time: Total time spent is greater than 50% in coordination of care (as documented) at patient's floor/unit and/or counseling patient: Time with patient: 15 - 24 minutes
[2020-03-13] MEDS: oxyCODONE HCl Immed Release 5 MG TABLET 10 MG PO ×5 (02:34→23:10)
[2020-03-13] MEDS: Heparin Sodium,Porcine 5,000 UNIT/ML VIAL 5000 UNIT SUBCUT ×2 (02:35→16:39)
[2020-03-13 04:00] VITALS: BP 111/63; PULSE 89; RESP 18; TEMP 36.5; O2SAT 94
[2020-03-13 07:47] VITALS: BP 134/62; PULSE 91; RESP 18; TEMP 36.7; O2SAT 96
--- NOTE | 2020-03-13 08:18 | PM.PNGS ---
Subjective Subjective Interval history: Reports some abdominal pain in the right upper quadrant and mild cramping pain in the left lower quadrant which improves after passing flatus. Has the urge to have a BM but no BM yet. Physical Exam Vital Signs: Vital Signs: Last Vital Signs Temp 98.0 F 03/13/20 07:47 Pulse 91 03/13/20 07:47 Resp 18 03/13/20 07:47 BP 134/62 03/13/20 07:47 Pulse Ox 96 03/13/20 07:47 Body Mass Index 36.0 Const: General: cooperative, healthy appearing, comfortable and no acute distress Orientation/consciousness: patient oriented x3 Eyes: Sclerae: sclerae normal EOM: EOMs intact bilaterally Neck: Neck: Yes normal visual inspection Resp: Effort & Inspection: normal respiratory effort and no cough Auscultation: no wheezes Cardio: Jugular venous distension: no JVD GI: Inspection: Yes normal to inspection, Yes distended and Yes Abdominal panniculus present Palpation (GI): Soft to palpation and Tenderness to palpation present (GI) (incisional tenderness) Skin: General skin exam: no rashes or lesions noted Neuro: General: patient oriented x3 Progress Note: A&P Assessment and plan (1) Colon cancer: Status: Acute Assessment and Plan: Path pending (2) S/P right colectomy: Status: Acute Assessment and Plan: Patient progressing well with minimal colicy abdominal pain, passing flatus, tolerating full liquids. Awaiting BM. He is ambulating independently. Wounds are clean and intact without redness or discharge. Will advance to regular low residue diet. Stop IV fluids. Fall Risk Details Current Medications: Current Medications Generic Name Dose Route Start Last Admin Trade Name Freq PRN Reason Stop Dose Admin Acetaminophen 1,000 mg 03/08/20 14:00 03/13/20 02:35 Acetaminophen 1,000 Mg/100 Ml Vial IV 1,000 mg Q6H ULI Administration Albuterol Sulfate 2.5 mg 03/08/20 07:31 Albuterol Sulfate (0.083%) 2.5 Mg/3 Ml Vial.Neb INHALE ONCE PRN Shortness of Breath/Wheezing Allopurinol 300 mg 03/09/20 09:00 03/12/20 08:34 Allopurinol 300 Mg Tablet PO 300 mg DAILY ULI Administration Atenolol 50 mg 03/09/20 09:00 03/12/20 08:34 Atenolol 50 Mg Tablet PO 50 mg DAILY ULI Administration Protocol Calcium Carbonate 750 mg 03/09/20 14:12 Calcium Carbonate 750 Mg Tab.Chew PO Q6H PRN Heartburn Heparin Sodium (Porcine) 5,000 unit 03/08/20 16:00 03/13/20 02:35 Heparin Sodium,Porcine 5,000 Unit/Ml Vial SUBCUT 5,000 unit Q12H ULI Administration Morphine Sulfate 4 mg 03/08/20 16:50 03/12/20 23:26 Morphine Sulfate 4 Mg/Ml Cartridge IVPUSH 4 mg Q3H PRN Administration Pain, Severe (Pain Scale 7-10) Ondansetron HCl 4 mg 03/12/20 09:42 Ondansetron Hcl 4 Mg/2 Ml Vial IVPUSH Q6H PRN Nausea and Vomiting Oxycodone HCl 10 mg 03/08/20 16:48 03/13/20 02:34 Oxycodone Hcl Immed Release 5 Mg Tablet PO 10 mg Q4H PRN Administration Pain, Moderate (Pain Scale 4-6 Time Spent With Patient Time: Total time spent is greater than 50% in coordination of care (as documented) at patient's floor/unit and/or counseling patient: Time with patient: 15 - 24 minutes
[2020-03-13] MEDS: Morphine Sulfate 4 MG/ML CARTRIDGE IVPUSH ×3 (09:39→16:39)
[2020-03-13] MEDS: atenoloL 50 MG TABLET PO (09:40)
[2020-03-13] MEDS: allopurinoL 300 MG TABLET PO (09:40)
[2020-03-13 12:00] VITALS: BP 125/75; PULSE 80; RESP 16; TEMP 36.3; O2SAT 95
[2020-03-13 16:00] VITALS: BP 143/82; PULSE 92; RESP 18; TEMP 36.6; O2SAT 96
[2020-03-13 19:24] VITALS: BP 152/84; PULSE 88; RESP 20; TEMP 37.4; O2SAT 94
[2020-03-13] MEDS: Docusate Sodium 100 MG CAPSULE PO (20:39)
[2020-03-13 23:30] VITALS: BP 119/73; PULSE 84; RESP 20; TEMP 36.8; O2SAT 95
[2020-03-14] VITALS (22 sets, daily range): BP systolic 113–169; BP diastolic 71–103; PULSE 79–113; RESP 16–20; TEMP 36.1–36.9; O2SAT 90–99
--- NOTE | 2020-03-14 | CT_ITS ---
EXAMINATION: CT ABDOMEN AND PELVIS WITH CONTRAST CLINICAL INFORMATION: Postop. Nausea. COMPARISON: CT: Mammography 02/22/2020 TECHNIQUE: Multidetector volumetric images were obtained from the superior aspect of the liver through the pubic symphysis following administration 85 mL of Omnipaque 350 intravenous contrast. Sagittal and coronal reformatted images were obtained on the technologist's workstation. Oral contrast: No This CT examination was performed using dose optimization techniques as appropriate, variously including the following: *Automated exposure control *Adjustment of mA and/or kV according to patient size (this includes techniques or standardized protocols for targeted exams where dose is matched to indication/reason for exam; i.e. extremities or head) *Use of iterative reconstruction technique DLP: 691 mGy-cm FINDINGS: LUNG BASES: There is bibasilar subsegmental atelectasis. No effusion. LIVER, GALLBLADDER, AND BILIARY TREE: The liver is normal in size and smooth in contour and uniform in attenuation. No focal hepatic parenchymal lesion or intrahepatic ductal dilatation. The gallbladder is normal in size. There may be some fine dependent sludge. No visible calculus or wall thickening. Common duct is unremarkable. PANCREAS: Unremarkable. SPLEEN: The spleen is enlarged measuring 17 cm sagittal dimension and 14 cm vertical dimension. Splenic parenchyma is homogeneous. ADRENAL GLANDS: Unremarkable. KIDNEYS AND URETERS: The kidneys enhance symmetrically and are normal in size and contour. There is no hydronephrosis, hydroureter, or perinephric stranding. There is a probable 1 cm cyst lateral upper pole left kidney. BLADDER: Unremarkable. GASTROINTESTINAL TRACT: There has been right hemicolectomy with ileocolic anastomosis in region of right anterior abdomen. There is mesenteric stranding around the ileocolic anastomosis with extra intestinal gas locally in the adjacent mesentery. The proximal to mid small bowel is distended with fluid in the lumen, 3.7 cm in diameter. There is smooth transition to normal caliber ileum. No small bowel wall thickening or focal kinking. Small bowel findings likely related to ileus rather than partial small bowel obstruction. The remaining colon is normal in caliber. There is mild ascites lower quadrants and pelvis. No focal loculated fluid collection or abscess. ABDOMINAL WALL: Postsurgical changes on left with stable line in subcutaneous locule gas. No hernia or abdominal wall abscess. LYMPH NODES: Scattered small nodes in the retroperitoneum. No bulky adenopathy. VASCULAR: Unremarkable. PELVIC VISCERA: Unremarkable. OSSEOUS STRUCTURES: Unremarkable. Dr. Hampton reviewed finding on PACS with Dr. Tijerina earlier today. CT/CT abdomen pelvis w con IMPRESSION: 1. Focal inflammatory changes adjacent to the ileocolic anastomosis with extra intestinal gas locally in the adjacent mesentery. Findings suggestive of small anastomotic perforation/leak. 2. Proximal to mid small bowel fluid-filled distention with smooth transition, likely ileus. 3. Mild ascites lower quadrants and pelvis. No loculated fluid collection or abscess. 4. Probable sludge in gallbladder. No gallbladder wall thickening or ductal dilatation. 5. Mild splenomegaly.
[2020-03-14] MEDS: Heparin Sodium,Porcine 5,000 UNIT/ML VIAL 5000 UNIT SUBCUT (03:31)
[2020-03-14] MEDS: Calcium Carbonate 750 MG TAB.CHEW PO ×2 (03:31→10:12)
[2020-03-14] MEDS: oxyCODONE HCl Immed Release 5 MG TABLET 10 MG PO ×2 (06:15→10:06)
--- NOTE | 2020-03-14 08:05 | PM.PNGS ---
Subjective Subjective Interval history: says he feels nauseous this AM passing flatus and BM says he was doing well over the weekend no reported fever Physical Exam Vital Signs: Vital Signs: Last Vital Signs Temp 98.2 F 03/14/20 03:57 Pulse 79 03/14/20 03:57 Resp 20 03/14/20 03:57 BP 113/74 03/14/20 03:57 Pulse Ox 94 03/14/20 03:57 Body Mass Index 36.0 Const: Other: looks uncomfortable General: No acute distress GI: Other: mildly distended, some tenderness mostly around incision, no guarding or rebound, incision clean and dry Progress Note: A&P Assessment and plan (1) S/P right colectomy: Status: Acute Assessment and Plan: c/o nausea this AM says he felt better over the weekend CT ordered NPO for now check labs IVF restarted explained plan to patient Fall Risk Details Current Medications: Current Medications Generic Name Dose Route Start Last Admin Trade Name Freq PRN Reason Stop Dose Admin Acetaminophen 1,000 mg 03/08/20 14:00 03/14/20 01:58 Acetaminophen 1,000 Mg/100 Ml Vial IV 1,000 mg Q6H ULI Administration Albuterol Sulfate 2.5 mg 03/08/20 07:31 Albuterol Sulfate (0.083%) 2.5 Mg/3 Ml Vial.Neb INHALE ONCE PRN Shortness of Breath/Wheezing Allopurinol 300 mg 03/09/20 09:00 03/13/20 09:40 Allopurinol 300 Mg Tablet PO 300 mg DAILY ULI Administration Atenolol 50 mg 03/09/20 09:00 03/13/20 09:40 Atenolol 50 Mg Tablet PO 50 mg DAILY ULI Administration Protocol Calcium Carbonate 750 mg 03/09/20 14:12 03/14/20 03:31 Calcium Carbonate 750 Mg Tab.Chew PO 750 mg Q6H PRN Administration Heartburn Docusate Sodium 100 mg 03/13/20 17:05 03/13/20 20:39 Docusate Sodium 100 Mg Capsule PO 100 mg BID PRN Administration Constipation Heparin Sodium (Porcine) 5,000 unit 03/08/20 16:00 03/14/20 03:31 Heparin Sodium,Porcine 5,000 Unit/Ml Vial SUBCUT 5,000 unit Q12H ULI Administration Morphine Sulfate 4 mg 03/08/20 16:50 03/13/20 16:39 Morphine Sulfate 4 Mg/Ml Cartridge IVPUSH 4 mg Q3H PRN Administration Pain, Severe (Pain Scale 7-10) Ondansetron HCl 4 mg 03/12/20 09:42 Ondansetron Hcl 4 Mg/2 Ml Vial IVPUSH Q6H PRN Nausea and Vomiting Oxycodone HCl 10 mg 03/08/20 16:48 03/14/20 06:15 Oxycodone Hcl Immed Release 5 Mg Tablet PO 10 mg Q4H PRN Administration Pain, Moderate (Pain Scale 4-6 Time Spent With Patient Time: Total time spent is greater than 50% in coordination of care (as documented) at patient's floor/unit and/or counseling patient: Time with patient: 15 - 24 minutes
[2020-03-14] MEDS: ondansetron HCL 4 MG/2 ML VIAL IVPUSH (08:25)
[2020-03-14] MEDS: Lactated Ringers 1,000 ML 100 ML IVCONT ×2 (08:26→20:30)
[2020-03-14] MEDS: allopurinoL 300 MG TABLET PO (10:06)
[2020-03-14] MEDS: atenoloL 50 MG TABLET PO (10:06)
[2020-03-14] MEDS: iohexoL 350 MG/ML 100 ML INFUS..BTL IV (10:08)
--- NOTE | 2020-03-14 12:24 | PM.EVENT ---
Event Note Event Note: he says he feels much better however, I have reviewed his CT - there are bubbles of air adjacent to the anastomotic site this is c/w an anastomotic leak I told him that it is best to proceed with laparotomy, likely revision/resection of the anastomosis with a stoma, mucus fistula I explained the above procedure to him I reviewed the risks including but not limited to bleeding, infections, hernia, abscess, inherent risks of anesthesia, as well as the benefits and alternatives He is hesitant to proceed as he says he feels better, but I explained to him that I am not comfortable with leaving this leak with exploring He has given consent He otherwise appears hemodynamicall stable I have reviewed the CT images with Dr. Hampton of radiology
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
[2020-03-14] MEDS: fentaNYL citrate/PF 100 MCG/2 ML VIAL 50 MCG IVPUSH ×2 (17:12→17:20)
--- NOTE | 2020-03-14 18:49 | P.BOP_ITS ---
Brief Operative Note Date of procedure: 03/14/20 Pre-op diagnosis: anastomotic leak Post-op diagnosis: same Procedure: laparotomy, resection of ileocolic anastomosis, end-ileostomy Surgeon: Gary Tijerina MD Anesthesia: GETA [employer] Firm Manager: Nir Smith Estimated blood loss (mL): 1,000 Pathology: other Condition: stable Disposition: PACU
--- NOTE | 2020-03-14 18:55 | P.EN_ITS ---
Event Note Event Note: pt underwent laparotomy, extensive lysis of adhesions, resection of ileocolic anastomosis with end-ileostomy stable VS in PACU good ou adequate pain control PSYCH SOCIAL WORKER ordered incentive spirometry transfer order function in [facility] not working - orders written on paper family updated by phone - sister Cordova
--- NOTE | 2020-03-14 18:55 | PM.EVENT ---
Event Note Event Note: pt underwent laparotomy, extensive lysis of adhesions, resection of ileocolic anastomosis with end-ileostomy stable VS in PACU good ou adequate pain control HUMAN RESOURCES CLERK ordered incentive spirometry transfer order function in [facility] not working - orders written on paper family updated by phone - sister Cordova
[2020-03-14 20:58] LABS: Glucose, Whole Blood 143 mg/dL (60-115)
--- NOTE | 2020-03-14 21:32 | OP_ITS ---
SURGEON: Gary Tijerina MD INDICATIONS: The patient is a 54-year-old male, who had undergone hand-assisted laparoscopic right colon resection in last March 08, 2020. He tolerated procedure well and had been on the Medr unit. He had been tolerating diet yesterday and had been passing flatus as well as bowel movement. However, this morning had complained of unusual nausea and so I sent him for a stat CAT scan, which showed bubbles of air around the anastomosis consistent with anastomotic leak. He otherwise was nonseptic. I told him that it is best to proceed with laparotomy and likely revise or resect this anastomosis and likely a stoma. I have reviewed the technique of procedure. I explained the risks, benefits, and alternatives. I discussed this with his family prior to the procedure. PREOPERATIVE DIAGNOSIS: Anastomotic leak. POSTOPERATIVE DIAGNOSIS: Anastomotic leak from recent right colon resection. PROCEDURE PERFORMED: Laparotomy, extensive lysis of adhesions, resection of ileocolonic anastomosis, and ileostomy. ESTIMATED BLOOD LOSS: COMPLICATIONS: ANESTHESIA: ASSISTANTS: Nir Smith MD. SPECIMENS: DESCRIPTION OF PROCEDURE: The patient was brought to the operating room, placed supine on the table under general anesthesia via endotracheal tube. The abdomen was prepped and draped in usual sterile fashion. A Johns catheter was inserted. A surgical time-out was done. The patient received Cefotan 2 g IV preoperatively. I released the mika from the short midline incision. I opened the incision down to the fascia. I extended the skin incision both cephalad and inferiorly. I then proceeded to release the sutures from the fascia and by doing so, we were able to enter the peritoneum. I extended the fascial incision both cephalad and inferiorly as well. At this point, there was note of a lot of serosanguineous fluid that was coming out of the abdomen. However, there was no evidence of any thao stool spillage. The omentum was covering the entire area under the fascia. We lifted this up, but it was adherent to the bowel loops underneath. I had to do careful separation of the omentum from the rest of bowel loops. It took a while before we were able to actually visualize the transverse colon. Initially, we could not see the anastomosis itself. I proceeded to then separate the omentum from the transverse colon by carefully dividing this along the interface of the serosa to expose the remaining transverse colon. We proceeded to continue this and dissected in this fashion proximally. By doing so, we were able to expose at least part of the anastomosis and there was note of significant inflammatory changes and indurated omentum in this area. It was difficult to actually see the anastomosis initially at first, but by bluntly dissecting the rest of the omentum, we were able to see an open part of the staple line. Initially, there was no gross stool spillage, but during the course of the dissection, part of the small amounts of the small bowel loop contents were passing through the anastomotic leak site. We had difficulty exposing the anastomosis because of all the induration and inflammatory changes in the area. We had to continue to release the omentum from the area of the anastomosis by combination of blunt dissection with the finger as well as with electrocautery. By doing so, after working on this for an extended period of time, was able to eventually visualize the entire anastomosis. It was tethered to the right upper quadrant in the retroperitoneum, then by acute adhesions, so we had to do some careful dissection to this as well with the finger to allow us to separate this from the rest of the fatty tissue and omentum in the right upper quadrant. We were able to expose more of the transverse colon, and we were able to identify and visualize the mesocolon. I chose to expose the mesocolon and non-healthy area and divided this and transected. We were able to create a mesenteric window to allow resection on a healthy part using the EDITH-60 mm stapler. By doing so, this allowed us better exposure of the mesentery and we proceeded to then carefully divide the mesentery with the LigaSure all the way proximally. Proceeded with this towards the anastomosis. We continued to transect the remaining mesentery of the anastomosis. By doing so, we now had the anastomotic area visualized. The rest of the small bowel leading towards the anastomosis was also very indurated and it was difficult to identify because of this being tethered on the right side of the abdomen. We had to do careful blunt dissection of the index finger to release the distal ileum from right side of gutter. We had to work on this for several minutes until I was able to bring up the small bowel into the field. By following this, I was able to clearly visualize the entire anastomosis and continued to divide the attached mesentery of both the small bowel and the colon. We created mesenteric window as well near the anastomosis and retracted this using the EDITH-60 mm stapler. We completed division of this anastomotic site by using the LigaSure for the mesentery and this was sent as specimen. We had to mobilize more of the distal ileum to create our ileostomy. Again, we had to separate this from the rest of the small bowel loops. We also had to carefully separate this from the abdominal wall on the right side. Again, the mesentery was very indurated as well, but we were able to bring this out into the field. Since part of the distal ileum was very inflamed, I decided to transect this as to create the healthier anastomosis. We chose an area that appeared to be healthy and passed a markedly inflamed small bowel. I created a mesenteric window and proceeded to divide more of the small bowel probably about 18 inches more. We transected this using LigaSure along the mesentery and this was sent as specimen as well. The segment of the distal ileum appeared viable and it also seemed to reach through the abdominal wall on a planned stoma site on the right side of the abdomen. I excised a discoid piece of skin from the right side of the abdomen and dissected down through the thick subcutaneous fat all the way to the fascia. I opened up the anterior fascia and did muscle splitting and incised more of the posterior fascia to create our stoma opening. We enlarged this by doing muscle splitting to allow four of my fingers. We used a Gobler to pull up the small bowel through this and this actually came through well. The colostomy site appeared a bit up, but otherwise was viable. We had pressure much of the mesentery of the small bowel, so I was confident that the vascularity was not compromised. We matured this anastomosis by excising the staple line and proceeded to secure the full thickness of the wall to the subdermal layer circumferentially using Dexon 3-0 sutures. We then proceeded to copiously irrigate the abdominal cavity. We observed him for hemostasis. Once hemostasis seemed to be confirmed, I proceeded to tack the remaining distal transverse colon to the peritoneal lining using Prolene 3-0 stitch. This will allow us to easily see through this during in the future when it is time to close the stoma. After copious irrigation, proceeded to close the fascia with running Maxon 1 stitch. Skin closure was achieved with mika loosely. I infiltrated the all incisions with Marcaine 0.5% for postop analgesia. I had actually placed a TRINY drain into the area of the leak and this was brought out through the exit site in the left upper quadrant, where the one of the port sites was before. This TRINY drain #7 drain was secured with nylon 3-0 sutures. We proceeded to then apply dressings in the stoma appliance. The procedure was completed. The patient tolerated the procedure well and there were no complications noted. There was note of diffuse oozing throughout the procedure because of the acute induration and inflammation of the mesentery. Estimated blood loss was about 1000. Hemoglobin was checked towards the end of procedure in the operating room and this was 10 with 1 point drop from earlier. The patient tolerated the procedure well. There were no complications noted. Initial and final counts of sponges and instruments were correct. The patient was then transferred back to the recovery room with stable vital signs. MD LIANA Macias/ABIGAIL / [id number] MTDD
[2020-03-14] MEDS: Piperacillin Sodium/Tazobactam 3.375 GM in 0.9 % Sodium Chloride 50 ML IV (21:43)
[2020-03-15] VITALS (19 sets, daily range): BP systolic 98–146; BP diastolic 60–93; PULSE 87–110; RESP 18–20; TEMP 36.5–37.2; O2SAT 93–99
[2020-03-15] MEDS: Piperacillin Sodium/Tazobactam 3.375 GM in 0.9 % Sodium Chloride 50 ML IV ×4 (01:26→20:52)
[2020-03-15] MEDS: Lactated Ringers 1,000 ML 100 ML IVCONT (06:33)
--- NOTE | 2020-03-15 06:38 | PC.NURSE ---
PER PHARMACY TOLD TO DOCUMENT COMPLAINT SUPERVISOR PUMP WITH INFUSION RATE OF 8MLS/H IN MAR. DISCREPANCY IN TERMS OF ACTUAL AMOUNT GIVEN VS MAR DOCUMENTATION. MAR DOCUMENTATION SHOWING MORE ADMINISTERED THAN ACTUAL BECAUSE SYSTEM WOULD ONLY ALLOW DOCUMENTATION INFUSION. FREELANCE COURT REPORTER AWARE. ALL OTHER DOCUMENTATION ON COMPLAINT SUPERVISOR PUMP REPORTED IN COMPLAINT SUPERVISOR INTERVENTIONS IN WORKLIST (BOLUS ASKED, BOLUS GIVEN, VITALS ETC.)
[2020-03-15] MEDS: oxyCODONE HCl Immed Release 5 MG TABLET 10 MG PO ×3 (07:57→20:49)
[2020-03-15] MEDS: atenoloL 50 MG TABLET PO (07:57)
[2020-03-15] MEDS: Heparin Sodium,Porcine 5,000 UNIT/ML VIAL 5000 UNIT SUBCUT ×2 (07:58→20:51)
--- NOTE | 2020-03-15 09:21 | HO.POSTANES ---
Post Anesthesia Evaluation Post Anesthesia Evaluation Vital Signs: Vital Signs Temp Pulse Resp BP Pulse Ox 03/15/20 08:00 98 18 127/80 95 03/15/20 07:34 98.7 F 98 20 127/80 95 03/15/20 06:00 98 18 130/76 96 03/15/20 04:00 97.7 F 104 H 20 146/82 H 95 03/15/20 02:05 105 H 20 139/82 96 03/15/20 02:00 20 03/15/20 00:05 110 H 18 127/70 96 03/14/20 23:54 97.6 F 113 H 20 148/95 H 98 03/14/20 22:41 100 18 131/80 96 Anesthesia: General Endotracheal-GETA Mental Status: Awake Pain Control: Satisfactory Nausea/Vomiting: None Hydration: Adequate Anesthesia-Related Issues: No Anes. Related Issues
--- NOTE | 2020-03-15 09:36 | PM.PNGS ---
Subjective Subjective Interval history: long, complex case yesterday for anstomotic leak c/o pain overnight no N/V no other events reported Chemistry 03/15/20 09:50 Sodium 137 Potassium 4.8 D Carbon Dioxide 26 BUN 15 D Creatinine 1.07 Calcium 7.8 L D Hematology 03/15/20 09:50 WBC 13.2 H Hgb 11.7 L Plt Count 336 D Physical Exam Vital Signs: Vital Signs: Last Vital Signs Temp 98.7 F 03/15/20 07:34 Pulse 98 03/15/20 08:00 Resp 18 03/15/20 08:00 BP 127/80 03/15/20 08:00 Pulse Ox 95 03/15/20 08:00 Body Mass Index 36.0 Const: Other: sitting up on recliner Cardio: Rhythm: regular rhythm GI: Other: distended soft, dressings dry, stoma inflamed and dusky, no output yet, TRINY drain serosanguinous Progress Note: A&P Assessment and plan (1) Ileocolic anastomotic leak: Status: Acute Assessment and Plan: s/p resection no fecal contamination around anastomosis, but some stool contents had leaked out during dissection - Zosyn started difficult procedure in view of acute induration around adjacent small bowel and colon await return of GI function pain mgt - HORTICULTURE SUPERVISOR Morphine incentive spirometry anticipate ileus, prolonged recovery family updated Fall Risk Details Current Medications: Current Medications Generic Name Dose Route Start Last Admin Trade Name Freq PRN Reason Stop Dose Admin Acetaminophen 1,000 mg 03/14/20 19:00 03/15/20 06:34 Acetaminophen 1,000 Mg/100 Ml Vial IV 03/17/20 13:01 1,000 mg Q6H ULI Administration Allopurinol 300 mg 03/09/20 09:00 03/15/20 07:58 Allopurinol 300 Mg Tablet PO Not Given DAILY ULI Atenolol 50 mg 03/09/20 09:00 03/15/20 07:57 Atenolol 50 Mg Tablet PO 50 mg DAILY ULI Administration Protocol Heparin Sodium (Porcine) 5,000 unit 03/15/20 09:00 03/15/20 07:58 Heparin Sodium,Porcine 5,000 Unit/Ml Vial SUBCUT 5,000 unit Q12H ULI Administration Lactated Ringer's 1,000 mls @ 100 mls/hr 03/14/20 13:45 03/15/20 06:33 Lr IVCONT 100 mls/hr .Q10H ULI Administration Morphine Sulfate 100 mg in 100 mls @ 0 mls/hr 03/14/20 18:45 03/15/20 06:30 IVCONT 8 mls/hr .Q0M ULI Infusion Protocol Per Protocol Piperacillin Sod/Tazobactam 50 mls @ 100 mls/hr 03/14/20 20:00 03/15/20 08:30 Sod 3.375 gm/ Sodium Chloride IV Infused Q6H ULI Infusion Naloxone HCl 0.2 mg 03/14/20 18:31 Naloxone Hcl 0.4 Mg/Ml Vial IVPUSH Q2M PRN Excessive sedation or RR < 8 Ondansetron HCl 4 mg 03/12/20 09:42 03/14/20 08:25 Ondansetron Hcl 4 Mg/2 Ml Vial IVPUSH 4 mg Q6H PRN Administration Nausea and Vomiting Oxycodone HCl 10 mg 03/08/20 16:48 03/15/20 07:57 Oxycodone Hcl Immed Release 5 Mg Tablet PO 10 mg Q4H PRN Administration Pain, Moderate (Pain Scale 4-6 Time Spent With Patient Time: Total time spent is greater than 50% in coordination of care (as documented) at patient's floor/unit and/or counseling patient: Time with patient: 15 - 24 minutes
[2020-03-15 10:04] LABS: Hematocrit 36.8 % (42-52); Hemoglobin 11.7 g/dl (14.0-18.0); Mean Corpuscular HGB Conc 31.8 g/dl (31.0-36.0); Mean Corpuscular Hemoglobin 26.4 pg (27.0-33.0); Mean Corpuscular Volume 83.1 fL (80-98); Mean Platelet Volume 9.9 fL (9.4-12.4); Platelet Count 336 X10*3/uL (160-400); Red Blood Count 4.43 X10*6/uL (4.60-5.80); Red Cell Distribution Width 14.6 % (11.0-16.0); White Blood Count 13.2 X10*3/uL (4.8-10.8)
[2020-03-15 10:35] LABS: Anion Gap 13 (12-20); Blood Urea Nitrogen 15 mg/dL (9-16); Calcium 7.8 mg/dL (8.4-10.2); Carbon Dioxide 26 mmol/L (22-29); Chloride 103 mmol/L (96-108); Creatinine Clr Calc Pharmacy 96.7; Estimated Glomerular Filt Rate > 60; Glucose Random 140 mg/dL (60-115); Potassium 4.8 mmol/l (3.3-5.1); Sodium 137 mmol/L (135-145)
--- NOTE | 2020-03-15 16:35 | PM.EVENT ---
Event Note Event Note: Patient seen on afternoon rounds Says his pain control seems much better No events during the day He is still sitting up on a recliner Good urine output TRINY drain very scanty output Stoma no functioning well with good stool and gas Continue pain management Continue CORRECTIONAL PROGRAM SPECIALIST plan to DC his Johns tomorrow Sister Patricia huy
--- NOTE | 2020-03-15 18:12 | PC.NURSE ---
New Morphine bag hung at 1753 with witness LUKAS at bedside. 25mg morphine waisted in pixis with witness.
[2020-03-16] VITALS (18 sets, daily range): BP systolic 98–129; BP diastolic 55–72; PULSE 80–97; RESP 16–18; TEMP 35.7–37.2; O2SAT 90–98
[2020-03-16] MEDS: Lactated Ringers 1,000 ML 100 ML IVCONT ×3 (00:04→19:59)
[2020-03-16] MEDS: Piperacillin Sodium/Tazobactam 3.375 GM in 0.9 % Sodium Chloride 50 ML IV ×4 (02:03→20:21)
[2020-03-16] MEDS: oxyCODONE HCl Immed Release 5 MG TABLET 10 MG PO ×4 (08:05→22:16)
[2020-03-16] MEDS: allopurinoL 300 MG TABLET PO (09:15)
[2020-03-16] MEDS: atenoloL 50 MG TABLET PO (09:15)
[2020-03-16] MEDS: Heparin Sodium,Porcine 5,000 UNIT/ML VIAL 5000 UNIT SUBCUT ×2 (09:16→20:21)
--- NOTE | 2020-03-16 10:01 | P.PNGS_ITS ---
Subjective Subjective Interval history: Patient says that he feels much more comfortable. Says he has not felt this well since before the initial surgery Tolerating clear liquids from last night No events reported overnight Has been passing good amount of stool and flatus via stoma Physical Exam Vital Signs: Vital Signs: Last Vital Signs Temp 98.2 F 03/16/20 08:00 Pulse 94 03/16/20 08:00 Resp 17 03/16/20 08:00 BP 106/72 03/16/20 08:00 Pulse Ox 95 03/16/20 08:00 Body Mass Index 36.0 Const: Other: Appears comfortable, sitting on a recliner General: no acute distress Cardio: Rhythm: regular rhythm GI: Other: Soft, no guarding rebound, dressings dry, stoma appears dusky but viable otherwise, with good output, functioning well, has stool and gas in the bag, TRINY drain very scanty clear output Progress Note: A&P Assessment and plan (1) Ileocolic anastomotic leak: Status: Acute Assessment and Plan: Status post resection of anastomosis, and ileostomy Looks well Much improved and comfortable Stoma functioning well Tolerating clear liquids Plan to remove Johns today Possibly remove TRINY in the next day or 2 Ambulate path reviewed :T3N1 - 21 lymph nodes negative but with tumor deposits, and suspicious for lymphovascular infiltration He wants to keep the PARK ACTIVITIES COORDINATOR pump - advised him to increase intervals between boluses so we can transition him to P.r.n. morphine Seems to be doing well postop Path reviewed -T Family updated regularly Fall Risk Details Current Medications: Current Medications Generic Name Dose Route Start Last Admin Trade Name Amanda PRN Reason Stop Dose Admin Acetaminophen 1,000 mg 03/14/20 19:00 03/16/20 07:47 Acetaminophen 1,000 Mg/100 Ml Vial IV 03/17/20 13:01 1,000 mg Q6H ULI Administration Allopurinol 300 mg 03/09/20 09:00 03/16/20 09:15 Allopurinol 300 Mg Tablet PO 300 mg DAILY ULI Administration Atenolol 50 mg 03/09/20 09:00 03/16/20 09:15 Atenolol 50 Mg Tablet PO 50 mg DAILY ULI Administration Protocol Heparin Sodium (Porcine) 5,000 unit 03/15/20 09:00 03/16/20 09:16 Heparin Sodium,Porcine 5,000 Unit/Ml Vial SUBCUT 5,000 unit Q12H ULI Administration Lactated Ringer's 1,000 mls @ 100 mls/hr 03/14/20 13:45 03/16/20 06:33 Lr IVCONT Not Given .Q10H ULI Morphine Sulfate 100 mg in 100 mls @ 0 mls/hr 03/14/20 18:45 03/15/20 17:53 IVCONT 8 mls/hr .Q0M ULI Administration Protocol Per Protocol Piperacillin Sod/Tazobactam 50 mls @ 100 mls/hr 03/14/20 20:00 03/16/20 09:16 Sod 3.375 gm/ Sodium Chloride IV 100 mls/hr Q6H ULI Administration Naloxone HCl 0.2 mg 03/14/20 18:31 Naloxone Hcl 0.4 Mg/Ml Vial IVPUSH Q2M PRN Excessive sedation or RR < 8 Ondansetron HCl 4 mg 03/12/20 09:42 03/14/20 08:25 Ondansetron Hcl 4 Mg/2 Ml Vial IVPUSH 4 mg Q6H PRN Administration Nausea and Vomiting Oxycodone HCl 10 mg 03/08/20 16:48 03/16/20 08:05 Oxycodone Hcl Immed Release 5 Mg Tablet PO 10 mg Q4H PRN Administration Pain, Moderate (Pain Scale 4-6 Time Spent With Patient Time: Total time spent is greater than 50% in coordination of care (as documented) at patient's floor/unit and/or counseling patient: Time with patient: 15 - 24 minutes
--- NOTE | 2020-03-16 14:11 | MHC.CM.PN ---
Patient is tolerating clear liquid diet, stoma is producing feces and gas. Patient is on IV MS gtt and IV Zosyn, TRINY drain to abd incision draining scant amts. Per surgeon, F/C was pulled today and possibly remove TRINY drain also. Discharge plan is home with [facility] for ileostomy teaching. Family will provide transport. CM will continue to follow for discharge needs.
--- NOTE | 2020-03-16 17:08 | P.EN_ITS ---
Event Note Event Note: he says he continues to feel better using RESEARCH NURSE less ambulating Johns dc'ed good amounts of stool via stoma abd soft plan to advance diet tomorrow, transition to prn Morphine from RESEARCH NURSE
--- NOTE | 2020-03-16 17:08 | PM.EVENT ---
Event Note Event Note: he says he continues to feel better using FABRIC CUTTER less ambulating Johns dc'ed good amounts of stool via stoma abd soft plan to advance diet tomorrow, transition to prn Morphine from FABRIC CUTTER
[2020-03-17] VITALS (10 sets, daily range): BP systolic 103–142; BP diastolic 63–79; PULSE 83–101; RESP 16–20; TEMP 36.3–37; O2SAT 94–98
[2020-03-17] MEDS: Piperacillin Sodium/Tazobactam 3.375 GM in 0.9 % Sodium Chloride 50 ML IV ×4 (01:16→20:05)
[2020-03-17] MEDS: oxyCODONE HCl Immed Release 5 MG TABLET 10 MG PO ×5 (02:38→23:50)
[2020-03-17] MEDS: Lactated Ringers 1,000 ML 100 ML IVCONT (05:02)
[2020-03-17] MEDS: atenoloL 50 MG TABLET PO (07:59)
[2020-03-17] MEDS: allopurinoL 300 MG TABLET PO (07:59)
[2020-03-17] MEDS: Heparin Sodium,Porcine 5,000 UNIT/ML VIAL 5000 UNIT SUBCUT ×2 (08:00→20:05)
--- NOTE | 2020-03-17 08:53 | PM.PNGS ---
Subjective Subjective Interval history: Continues to feel well Asking about getting discharged Tolerating liquids Has been ambulating Says pain control is better but still uses MANAGER SERVICING morphine Physical Exam Vital Signs: Vital Signs: Last Vital Signs Temp 98.3 F 03/17/20 07:41 Pulse 93 03/17/20 07:41 Resp 20 03/17/20 07:41 BP 142/76 H 03/17/20 07:41 Pulse Ox 94 03/17/20 07:41 Body Mass Index 36.0 Const: Other: Looks well, sitting up on recliner General: comfortable and no acute distress Cardio: Rate: regular rate GI: Other: Soft, no guarding or rebound, stoma functioning well with good output, TRINY drain with no output dressings dry Progress Note: A&P Assessment and plan (1) Ileocolic anastomotic leak: Problem details: Continues to improve Advance diet Plan to DC MANAGER SERVICING today Check labs Ambulate Path report noted Family updated Status: Acute Fall Risk Details Current Medications: Current Medications Generic Name Dose Route Start Last Admin Trade Name Freq PRN Reason Stop Dose Admin Acetaminophen 1,000 mg 03/14/20 19:00 03/17/20 07:39 Acetaminophen 1,000 Mg/100 Ml Vial IV 03/17/20 13:01 1,000 mg Q6H ULI Administration Allopurinol 300 mg 03/09/20 09:00 03/17/20 07:59 Allopurinol 300 Mg Tablet PO 300 mg DAILY ULI Administration Atenolol 50 mg 03/09/20 09:00 03/17/20 07:59 Atenolol 50 Mg Tablet PO 50 mg DAILY ULI Administration Protocol Heparin Sodium (Porcine) 5,000 unit 03/15/20 09:00 03/17/20 08:00 Heparin Sodium,Porcine 5,000 Unit/Ml Vial SUBCUT 5,000 unit Q12H ULI Administration Lactated Ringer's 1,000 mls @ 100 mls/hr 03/14/20 13:45 03/17/20 05:02 Lr IVCONT 100 mls/hr .Q10H ULI Administration Morphine Sulfate 100 mg in 100 mls @ 0 mls/hr 03/14/20 18:45 03/16/20 20:09 IVCONT 8 mls/hr .Q0M ULI Administration Protocol Per Protocol Piperacillin Sod/Tazobactam 50 mls @ 100 mls/hr 03/14/20 20:00 11/12/20 08:47 Sod 3.375 gm/ Sodium Chloride IV Infused Q6H ULI Infusion Naloxone HCl 0.2 mg 03/14/20 18:31 Naloxone Hcl 0.4 Mg/Ml Vial IVPUSH Q2M PRN Excessive sedation or RR < 8 Ondansetron HCl 4 mg 03/12/20 09:42 03/14/20 08:25 Ondansetron Hcl 4 Mg/2 Ml Vial IVPUSH 4 mg Q6H PRN Administration Nausea and Vomiting Oxycodone HCl 10 mg 03/08/20 16:48 03/17/20 08:52 Oxycodone Hcl Immed Release 5 Mg Tablet PO 10 mg Q4H PRN Administration Pain, Moderate (Pain Scale 4-6 Time Spent With Patient Time: Total time spent is greater than 50% in coordination of care (as documented) at patient's floor/unit and/or counseling patient: Time with patient: 15 - 24 minutes
[2020-03-17 11:33] LABS: Hematocrit 26.5 % (42-52); Hemoglobin 8.3 g/dl (14.0-18.0); Mean Corpuscular HGB Conc 31.3 g/dl (31.0-36.0); Mean Corpuscular Hemoglobin 26.6 pg (27.0-33.0); Mean Corpuscular Volume 84.9 fL (80-98); Mean Platelet Volume 9.6 fL (9.4-12.4); Platelet Count 243 X10*3/uL (160-400); Red Blood Count 3.12 X10*6/uL (4.60-5.80); Red Cell Distribution Width 14.5 % (11.0-16.0); White Blood Count 9.5 X10*3/uL (4.8-10.8)
[2020-03-17] MEDS: Morphine Sulfate 4 MG/ML CARTRIDGE IVPUSH (15:36)
[2020-03-17] MEDS: Lactated Ringers 1,000 ML 60 ML IVCONT (17:04)
--- NOTE | 2020-03-17 17:06 | PM.EVENT ---
Event Note Date of Service: 03/17/20 Event Note: Continues to feel well Tolerating current full liquid diet Stoma continues to have good output He has been ambulating Denies significant pain Advance diet Doing well clinically Family updated
[2020-03-17 17:46] LABS: Anion Gap 10 (12-20); Blood Urea Nitrogen 7 mg/dL (9-16); Carbon Dioxide 30 mmol/L (22-29); Chloride 101 mmol/L (96-108); Creatinine Clr Calc Pharmacy 134.4; Estimated Glomerular Filt Rate > 60; Glucose Random 81 mg/dL (60-115); Potassium 3.6 mmol/l (3.3-5.1); Sodium 137 mmol/L (135-145)
[2020-03-18] VITALS (8 sets, daily range): BP systolic 116–143; BP diastolic 66–77; PULSE 88–100; RESP 16–20; TEMP 36.1–37.1; O2SAT 94–100
[2020-03-18] MEDS: Morphine Sulfate 4 MG/ML CARTRIDGE IVPUSH ×3 (00:23→22:58)
[2020-03-18] MEDS: Piperacillin Sodium/Tazobactam 3.375 GM in 0.9 % Sodium Chloride 50 ML IV ×4 (02:56→19:47)
[2020-03-18] MEDS: oxyCODONE HCl Immed Release 5 MG TABLET 10 MG PO ×4 (03:38→21:49)
[2020-03-18 06:55] LABS: Hematocrit 27.4 % (42-52); Hemoglobin 8.6 g/dl (14.0-18.0)
[2020-03-18] MEDS: atenoloL 50 MG TABLET PO (08:25)
[2020-03-18] MEDS: allopurinoL 300 MG TABLET PO (08:25)
[2020-03-18] MEDS: Heparin Sodium,Porcine 5,000 UNIT/ML VIAL 5000 UNIT SUBCUT ×2 (08:25→20:51)
--- NOTE | 2020-03-18 10:09 | P.PNGS_ITS ---
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 tolerating regular diet has been ambulating Physical Exam Vital Signs: Vital Signs: Last Vital Signs Temp 97.7 F 03/18/20 08:00 Pulse 100 03/18/20 08:25 Resp 18 03/18/20 08:00 BP 127/76 03/18/20 08:25 Pulse Ox 97 03/18/20 08:00 Body Mass Index 36.0 Chemistry 03/15/20 03/17/20 09:50 16:55 Sodium 137 137 Potassium 4.8 D 3.6 D Carbon Dioxide 26 30 H BUN 15 D 7 L D Creatinine 1.07 0.77 Calcium 7.8 L D 7.0 L D Hematology 03/17/20 03/17/20 03/18/20 09:24 11:16 05:42 WBC Cancelled 9.5 Hgb Cancelled 8.3 L D 8.6 L Plt Count Cancelled 243 D Const: General: comfortable, no acute distress and alert Cardio: Rate: regular rate GI: Other: soft, no guarding or rebound, stoma functioning well with good output,TRINY scanty-serous; incision clean Progress Note: A&P Assessment and plan (1) Ileocolic anastomotic leak: Problem details: Continues to improve Advance diet 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 Check labs Ambulate Path report noted Family updated Status: Acute Assessment and Plan: S/P laparotomy, resection of anastomosis, ileostomy doing much better good GI function stoma functioning well likely home tomorrow dc TRINY prior to discharge will need VNA - 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 will see in office for ffup Fall Risk Details Current Medications: Current Medications Generic Name Dose Route Start Last Admin Trade Name Amanda PRN Reason Stop Dose Admin Allopurinol 300 mg 03/09/20 09:00 03/18/20 08:25 Allopurinol 300 Mg Tablet PO 300 mg DAILY ULI Administration Atenolol 50 mg 03/09/20 09:00 03/18/20 08:25 Atenolol 50 Mg Tablet PO 50 mg DAILY ULI Administration Protocol Heparin Sodium (Porcine) 5,000 unit 03/15/20 09:00 03/18/20 08:25 Heparin Sodium,Porcine 5,000 Unit/Ml Vial SUBCUT 5,000 unit Q12H ULI Administration Lactated Ringer's 1,000 mls @ 60 mls/hr 03/14/20 13:45 03/17/20 17:05 Lr IVCONT Infused .[id number] ULI Infusion Piperacillin Sod/Tazobactam 50 mls @ 100 mls/hr 03/14/20 20:00 03/18/20 08:25 Sod 3.375 gm/ Sodium Chloride IV 100 mls/hr Q6H ULI Administration Morphine Sulfate 4 mg 03/17/20 09:22 03/18/20 00:23 Morphine Sulfate 4 Mg/Ml Cartridge IVPUSH 4 mg Q3H PRN Administration Pain, Severe (Pain Scale 7-10) Naloxone HCl 0.2 mg 03/14/20 18:31 Naloxone Hcl 0.4 Mg/Ml Vial IVPUSH Q2M PRN Excessive sedation or RR < 8 Ondansetron HCl 4 mg 03/12/20 09:42 03/14/20 08:25 Ondansetron Hcl 4 Mg/2 Ml Vial IVPUSH 4 mg Q6H PRN Administration Nausea and Vomiting Oxycodone HCl 5 mg 03/17/20 09:22 Oxycodone Hcl Immed Release 5 Mg Tablet PO Q4H PRN Pain, Moderate (Pain Scale 4-6 Oxycodone HCl 10 mg 03/17/20 09:22 03/18/20 08:25 Oxycodone Hcl Immed Release 5 Mg Tablet PO 10 mg Q4H PRN Administration Pain, Severe (Pain Scale 7-10) Time Spent With Patient Time: Total time spent is greater than 50% in coordination of care (as documented) at patient's floor/unit and/or counseling patient: Time with patient: 15 - 24 minutes Procedures Abscess I/D Date of Service: 03/18/20
--- NOTE | 2020-03-18 14:34 | MHC.CM.PN ---
Per surgeon, patient will be ready for discharge home tomorrow with services from [facility] who was updated today. Spoke with nurse on floor who states they will send patient home with ostomy supplies. CM will continue to follow patient for discharge needs.
--- NOTE | 2020-03-18 15:38 | PM.EVENT ---
Event Note Date of Service: 03/18/20 Event Note: seen on PM rounds continues to feel well tolerating diet good stoma output abd soft dc IVF ok to dc home tomorrow dc drain prior to discharge pt given educational materials for stoma care VNA to see pt for stoma care at home rx for stoma appliance in chart pt to see me in office for postop he says he feels ready to be discharged tomorrow Hg stable
[2020-03-19] VITALS (7 sets, daily range): BP systolic 112–131; BP diastolic 67–81; PULSE 84–93; RESP 18–20; TEMP 36.4–36.8; O2SAT 95–99
[2020-03-19] MEDS: Piperacillin Sodium/Tazobactam 3.375 GM in 0.9 % Sodium Chloride 50 ML IV ×4 (02:08→18:42)
[2020-03-19] MEDS: oxyCODONE HCl Immed Release 5 MG TABLET PO (04:03)
[2020-03-19] MEDS: Morphine Sulfate 4 MG/ML CARTRIDGE IVPUSH ×3 (06:21→23:51)
[2020-03-19] MEDS: allopurinoL 300 MG TABLET PO (08:32)
[2020-03-19] MEDS: atenoloL 50 MG TABLET PO (08:32)
[2020-03-19] MEDS: Heparin Sodium,Porcine 5,000 UNIT/ML VIAL 5000 UNIT SUBCUT ×2 (08:32→20:29)
[2020-03-19] MEDS: oxyCODONE HCl Immed Release 5 MG TABLET 10 MG PO ×3 (08:35→20:30)
--- NOTE | 2020-03-19 11:34 | P.PNGS_ITS ---
Subjective Subjective Patient reports: no new complaints, still having pain, tolerating a regular diet, flatus and bowel movement <TATUM Hercules Last Filed: 03/19/20 13:28> Interval history: He states he continues to feel bloated and feels ongoing ABD discomfort. He is passing liquid stool and gas into his ostomy. He is tolerating a regular diet without N/V. He is OOB to chair and bathroom. <TATUM Hercules - Last Filed: 03/19/20 13:28> Physical Exam Vital Signs: Vital Signs: Last Vital Signs Temp 97.6 F 03/19/20 08:00 Pulse 93 03/19/20 08:32 Resp 20 03/19/20 08:00 BP 120/76 03/19/20 08:32 Pulse Ox 98 03/19/20 08:00 Body Mass Index 36.0 <TATUM Hercules Last Filed: 03/19/20 13:28> Const: General: cooperative, healthy appearing and no acute distress <TATUM Hercules - Last Filed: 03/19/20 13:28> Resp: Effort & Inspection: normal respiratory effort <TATUM Hercules - Last Filed: 03/19/20 13:28> Cardio: Rhythm: regular rhythm <TATUM Hercules Last Filed: 03/19/20 13:28> Heart sounds: S1 normal heart sound present and S2 normal heart sound present <TATUM Hercules Last Filed: 03/19/20 13:28> GI: Inspection: Yes normal to inspection, Yes distended, Yes incision (c/d/i) and Yes other (TRINY drain with >20 cc's of serosangineous drainage. Dressing c/d/i) <TATUM Hercules - Last Filed: 03/19/20 13:28> Palpation (GI): Soft to palpation and Tenderness to palpation present (GI) (appropriate post-op tenderness. ) <TATUM Hercules Last Filed: 03/19/20 13:28> Auscultation: Hypoactive bowel sounds present <TATUM Hercules Last Filed: 03/19/20 13:28> Skin: General skin exam: no rashes or lesions noted <TATUM Hercules Last Filed: 03/19/20 13:28> Extrem: General: Yes no calf tenderness <TATUM Hercules - Last Filed: 03/19/20 13:28> Progress Note: A&P Assessment and plan (1) Ileocolic anastomotic leak: Problem details: Continues to improve- has pain and distention. Now on PO pain medication. POD#5 <TATUM Hercules - Last Filed: 03/19/20 13:28> Status: Acute <TATUM Hercules - Last Filed: 03/19/20 13:28> Assessment and Plan: Continue PO pain mgmt Regular diet Encourage OOB Patient thought he was being discharged today but due to his ongoing TRINY drainage and discomfort we will continue to monitor him for an additional day. <TATUM Hercules - Last Filed: 03/19/20 13:28> . . Patient was evaluated and examined at the bedside with Mr. Jitendra Teague PA-C. I confirm above findings and plan as documented. On exam, ostomy works fine. Has brown fecal liquidy solids. He is tolerating regular diet ( hamburger for lunch ). However, he is distended on exam and still has abdominal pain that requires IV opioid analgesic. We will continue supportive postop care for ano ther day, and re-evaluate whether he is ready for discharge or not. <Mariajose Clement MD - Last Filed: 03/19/20 13:43> (2) S/P right colectomy: Status: Acute <TATUM Hercules - Last Filed: 03/19/20 13:28> Assessment and Plan: See above <TATUM Hercules - Last Filed: 03/19/20 13:28> Fall Risk Details Current Medications: Current Medications Generic Name Dose Route Start Last Admin Trade Name Johnq PRN Reason Stop Dose Admin Allopurinol 300 mg 03/09/20 09:00 03/19/20 08:32 Allopurinol 300 Mg Tablet PO 300 mg DAILY ULI Administration Atenolol 50 mg 03/09/20 09:00 03/19/20 08:32 Atenolol 50 Mg Tablet PO 50 mg DAILY ULI Administration Protocol Heparin Sodium (Porcine) 5,000 unit 03/15/20 09:00 03/19/20 08:32 Heparin Sodium,Porcine 5,000 Unit/Ml Vial SUBCUT 5,000 unit Q12H ULI Administration Lactated Ringer's 1,000 mls @ 60 mls/hr 03/14/20 13:45 03/19/20 07:43 Lr IVCONT Not Given .[id number] ULI Piperacillin Sod/Tazobactam 50 mls @ 100 mls/hr 03/14/20 20:00 03/19/20 09:36 Sod 3.375 gm/ Sodium Chloride IV Infused Q6H ULI Infusion Morphine Sulfate 4 mg 03/17/20 09:22 03/19/20 06:21 Morphine Sulfate 4 Mg/Ml Cartridge IVPUSH 4 mg Q3H PRN Administration Pain, Severe (Pain Scale 7-10) Naloxone HCl 0.2 mg 03/14/20 18:31 Naloxone Hcl 0.4 Mg/Ml Vial IVPUSH Q2M PRN Excessive sedation or RR < 8 Ondansetron HCl 4 mg 03/12/20 09:42 03/14/20 08:25 Ondansetron Hcl 4 Mg/2 Ml Vial IVPUSH 4 mg Q6H PRN Administration Nausea and Vomiting Oxycodone HCl 5 mg 03/17/20 09:22 03/19/20 04:03 Oxycodone Hcl Immed Release 5 Mg Tablet PO 5 mg Q4H PRN Administration Pain, Moderate (Pain Scale 4-6 Oxycodone HCl 10 mg 03/17/20 09:22 03/19/20 08:35 Oxycodone Hcl Immed Release 5 Mg Tablet PO 10 mg Q4H PRN Administration Pain, Severe (Pain Scale 7-10) <TATUM Hercules - Last Filed: 03/19/20 13:28> Time Spent With Patient Time: Total time spent is greater than 50% in coordination of care (as documented) at patient's floor/unit and/or counseling patient: <TATUM Hercules - Last Filed: 03/19/20 13:28> Time with patient: 15 - 24 minutes <Mariajose Clement MD - Last Filed: 03/19/20 13:43> Progress Note: Quality VTE Deep Vein Thrombosis/Pulmonary Embolism Present on Admission: No <TATUM Hercules - Last Filed: 03/19/20 13:28> Procedures Abscess I/D Date of Service: 03/19/20 <Mariajose Clement MD - Last Filed: 03/19/20 13:43>
[2020-03-20] MEDS: oxyCODONE HCl Immed Release 5 MG TABLET 10 MG PO ×3 (03:06→15:37)
[2020-03-20] MEDS: Piperacillin Sodium/Tazobactam 3.375 GM in 0.9 % Sodium Chloride 50 ML IV ×4 (03:07→20:13)
[2020-03-20 03:57] VITALS: BP 129/81; PULSE 81; RESP 18; TEMP 36.7; O2SAT 97
[2020-03-20 08:00] VITALS: BP 139/88; PULSE 92; RESP 20; TEMP 36.2; O2SAT 97
[2020-03-20] MEDS: Heparin Sodium,Porcine 5,000 UNIT/ML VIAL 5000 UNIT SUBCUT ×2 (08:48→20:13)
[2020-03-20] MEDS: allopurinoL 300 MG TABLET PO (08:49)
[2020-03-20 08:51] VITALS: BP 139/79; PULSE 97
[2020-03-20] MEDS: atenoloL 50 MG TABLET PO (08:51)
[2020-03-20] MEDS: Morphine Sulfate 4 MG/ML CARTRIDGE IVPUSH (11:38)
--- NOTE | 2020-03-20 11:45 | PM.PNGS ---
Subjective Subjective Interval history: Feels less discomfort but continue to feel bloated though does confirm this has also improved. He is OOB, tolerating a regular diet. <TATUM Hercules - Last Filed: 03/20/20 12:56> Physical Exam Vital Signs: Vital Signs: Last Vital Signs Temp 97.1 F 03/20/20 08:00 Pulse 97 03/20/20 08:51 Resp 20 03/20/20 08:00 BP 139/79 03/20/20 08:51 Pulse Ox 97 03/20/20 08:00 Body Mass Index 36.0 <TATUM Hercules - Last Filed: 03/20/20 12:56> Const: General: cooperative, comfortable and no acute distress <TATUM Hercules - Last Filed: 03/20/20 12:56> GI: Inspection: Yes incision (c/d/i) and Yes other (TRINY drain with ongoing drainage ~20 cc since emptied this AM (seen at 10 am)) <TATUM Hercules - Last Filed: 03/20/20 12:56> Palpation (GI): Firmness to palpation present (GI) (distended. Softern than yesterday.) <TATUM Hercules - Last Filed: 03/20/20 12:56> Auscultation: normoactive bowel sounds <TATUM Hercules - Last Filed: 03/20/20 12:56> Skin: General skin exam: no rashes or lesions noted <TATUM Hercules - Last Filed: 03/20/20 12:56> Extrem: General: Yes no calf tenderness <TATUM Hercules - Last Filed: 03/20/20 12:56> Progress Note: A&P Assessment and plan (1) Ileocolic anastomotic leak: Problem details: Continues to improve- has pain and distention. Now on PO pain medication. POD#6 <TATUM Hercules - Last Filed: 03/20/20 12:56> Status: Acute <TATUM Hercules - Last Filed: 03/20/20 12:56> Assessment and Plan: He continues to tolerate food and moving gas and stool through his ostomy however he continues to be in discomfort and has ongoing distention. Continue current care. Encourage OOB Continue TRINY drain. Stop IV pain medication. Continue PO. <TATUM Hercules - Last Filed: 03/20/20 12:56> . General Surgery Attending - Nara Clement M.D. Patient was evaluated and examined at the bedside with Mr. Jitendra Teague PA-C. I confirm above findings and plan as documented. Patient feels better today. On exam, his abdomen is softer. TRINY drainage has been > 50 cc's on Fri to Sat, and has been 20 cc's this morning 7 am, and then 25 cc's over 5 hours. Still not ready for removal. I suggested discharge today w/ VNA to him, but he wished to stay another day. His reasons were that he did not want to go home with TRINY drain tube, he felt that he did not receive adequate ostomy bag care teaching. He also has been asking for IV morphine in addition to oxycodone. For these reasons I agreed to keep him another day. We will D/C the IV morphine however. <Mariajose Clement MD - Last Filed: 03/20/20 13:25> Fall Risk Details Current Medications: Current Medications Generic Name Dose Route Start Last Admin Trade Name Freq PRN Reason Stop Dose Admin Allopurinol 300 mg 03/09/20 09:00 03/20/20 08:49 Allopurinol 300 Mg Tablet PO 300 mg DAILY ULI Administration Atenolol 50 mg 03/09/20 09:00 03/20/20 08:51 Atenolol 50 Mg Tablet PO 50 mg DAILY ULI Administration Protocol Heparin Sodium (Porcine) 5,000 unit 03/15/20 09:00 03/20/20 08:48 Heparin Sodium,Porcine 5,000 Unit/Ml Vial SUBCUT 5,000 unit Q12H ULI Administration Piperacillin Sod/Tazobactam 50 mls @ 100 mls/hr 03/14/20 20:00 03/20/20 11:43 Sod 3.375 gm/ Sodium Chloride IV Infused Q6H ULI Infusion Morphine Sulfate 4 mg 03/17/20 09:22 03/20/20 11:38 Morphine Sulfate 4 Mg/Ml Cartridge IVPUSH 4 mg Q3H PRN Administration Pain, Severe (Pain Scale 7-10) Naloxone HCl 0.2 mg 03/14/20 18:31 Naloxone Hcl 0.4 Mg/Ml Vial IVPUSH Q2M PRN Excessive sedation or RR < 8 Ondansetron HCl 4 mg 03/12/20 09:42 03/14/20 08:25 Ondansetron Hcl 4 Mg/2 Ml Vial IVPUSH 4 mg Q6H PRN Administration Nausea and Vomiting Oxycodone HCl 5 mg 03/17/20 09:22 03/19/20 04:03 Oxycodone Hcl Immed Release 5 Mg Tablet PO 5 mg Q4H PRN Administration Pain, Moderate (Pain Scale 4-6 Oxycodone HCl 10 mg 03/17/20 09:22 03/20/20 08:48 Oxycodone Hcl Immed Release 5 Mg Tablet PO 10 mg Q4H PRN Administration Pain, Severe (Pain Scale 7-10) <TATUM Hercules - Last Filed: 03/20/20 12:56> Time Spent With Patient Time: Total time spent is greater than 50% in coordination of care (as documented) at patient's floor/unit and/or counseling patient: <TATUM Hercules - Last Filed: 03/20/20 12:56> Time with patient: 15 - 24 minutes <Mariajose Clement MD - Last Filed: 03/20/20 13:25> Progress Note: Quality VTE Deep Vein Thrombosis/Pulmonary Embolism Present on Admission: No <TATUM Hercules - Last Filed: 03/20/20 12:56> Procedures Abscess I/D Date of Service: 03/20/20 <Mariajose Clement MD - Last Filed: 03/20/20 13:25>
[2020-03-20 12:00] VITALS: BP 117/63; PULSE 86; RESP 20; TEMP 36.2; O2SAT 99
[2020-03-20 15:34] VITALS: BP 115/68; PULSE 86; RESP 18; TEMP 36.3; O2SAT 99
[2020-03-20 19:53] VITALS: BP 117/70; PULSE 89; RESP 18; TEMP 36.2; O2SAT 98
[2020-03-20] MEDS: oxyCODONE HCl Immed Release 5 MG TABLET PO (20:14)
[2020-03-21] VITALS: BP 106/59; PULSE 82; RESP 16; TEMP 36.2; O2SAT 96
[2020-03-21] MEDS: Piperacillin Sodium/Tazobactam 3.375 GM in 0.9 % Sodium Chloride 50 ML IV ×2 (01:15→08:32)
[2020-03-21] MEDS: oxyCODONE HCl Immed Release 5 MG TABLET PO ×3 (01:16→14:54)
[2020-03-21 03:22] VITALS: BP 149/79; PULSE 80; RESP 18; TEMP 36.7; O2SAT 96
[2020-03-21 08:00] VITALS: BP 128/80; PULSE 88; RESP 20; TEMP 36.2; O2SAT 97
[2020-03-21] MEDS: atenoloL 50 MG TABLET PO (08:33)
[2020-03-21] MEDS: allopurinoL 300 MG TABLET PO (08:33)
[2020-03-21] MEDS: Heparin Sodium,Porcine 5,000 UNIT/ML VIAL 5000 UNIT SUBCUT (08:33)
--- NOTE | 2020-03-21 09:48 | PM.PNGS ---
Subjective Subjective Interval history: Feels well Tolerating diet Says he has been ready to go home No problems with the stoma Physical Exam Vital Signs: Vital Signs: Last Vital Signs Temp 97.1 F 03/21/20 08:00 Pulse 88 03/21/20 08:00 Resp 20 03/21/20 08:00 BP 128/80 03/21/20 08:00 Pulse Ox 97 03/21/20 08:00 Body Mass Index 36.0 Const: General: comfortable and no acute distress Cardio: Rhythm: regular rhythm GI: Other: Soft, no guarding or rebound, stoma functioning well with good output, drain on the left clear, serous, incision clean and dry Progress Note: A&P Assessment and plan (1) Ileocolic anastomotic leak: Problem details: Continues to improve- has pain and distention. Now on PO pain medication. POD#6 Status: Acute Assessment and Plan: Status post resection of the anastomosis, and ileostomy He is doing well Good GI function Stoma with good output Incision clean Plan to DC his TRINY drain Okay to DC home today Visiting nurse to follow him for stoma care Looks well Fall Risk Details Current Medications: Current Medications Generic Name Dose Route Start Last Admin Trade Name Freq PRN Reason Stop Dose Admin Allopurinol 300 mg 03/09/20 09:00 03/21/20 08:33 Allopurinol 300 Mg Tablet PO 300 mg DAILY ULI Administration Atenolol 50 mg 03/09/20 09:00 03/21/20 08:33 Atenolol 50 Mg Tablet PO 50 mg DAILY ULI Administration Protocol Heparin Sodium (Porcine) 5,000 unit 03/15/20 09:00 03/21/20 08:33 Heparin Sodium,Porcine 5,000 Unit/Ml Vial SUBCUT 5,000 unit Q12H ULI Administration Piperacillin Sod/Tazobactam 50 mls @ 100 mls/hr 03/14/20 20:00 03/21/20 09:43 Sod 3.375 gm/ Sodium Chloride IV Infused Q6H ULI Infusion Naloxone HCl 0.2 mg 03/14/20 18:31 Naloxone Hcl 0.4 Mg/Ml Vial IVPUSH Q2M PRN Excessive sedation or RR < 8 Ondansetron HCl 4 mg 03/12/20 09:42 03/14/20 08:25 Ondansetron Hcl 4 Mg/2 Ml Vial IVPUSH 4 mg Q6H PRN Administration Nausea and Vomiting Oxycodone HCl 5 mg 03/17/20 09:22 03/21/20 06:28 Oxycodone Hcl Immed Release 5 Mg Tablet PO 5 mg Q4H PRN Administration Pain, Moderate (Pain Scale 4-6 Oxycodone HCl 10 mg 03/17/20 09:22 03/20/20 15:37 Oxycodone Hcl Immed Release 5 Mg Tablet PO 10 mg Q4H PRN Administration Pain, Severe (Pain Scale 7-10) Time Spent With Patient Time: Total time spent is greater than 50% in coordination of care (as documented) at patient's floor/unit and/or counseling patient: Time with patient: 15 - 24 minutes Progress Note: Quality VTE Deep Vein Thrombosis/Pulmonary Embolism Present on Admission: No Procedures Abscess I/D Date of Service: 03/21/20
[2020-03-21] MEDS: oxyCODONE HCl Immed Release 5 MG TABLET 10 MG PO (10:45)
--- NOTE | 2020-03-21 11:46 | MHC.CM.PN ---
Patient continues with abd bloating and some abd discomfort. Patient continues on IV Zosyn. Discharge plan is home with new services from [facility]. Family will provide transportation. CM will continue to follow patient for discharge needs.
[2020-03-21 12:00] VITALS: RESP 19
--- NOTE | 2020-03-21 12:34 | MHC.CM.PN ---
Patient will be discharged home today with services from [facility]. Patient will get his own transportation. Nurse is aware.
--- NOTE | 2020-03-23 23:25 | DS_ITS ---
REASON FOR ADMISSION: Elective colon resection. HOSPITAL COURSE: The patient is a 54-year-old male with morbid obesity, who was recently diagnosed to have a mass in the hepatic flexure with luminal narrowing with impending obstruction. Some biopsies of these have shown adenocarcinoma, and therefore, I had scheduled him for resection of the right colon. He underwent hand-assisted laparoscopic right colon resection on March 08, 2020. He tolerated the procedure well. He was transferred to the regular floor postoperatively. He was started on clear liquids. He did not pass flatus until postop day #3. At that point, I started to advance his diet slowly. He had remained well and did not have any significant complaints for the first few days. He was started on regular diet on postop day #6 after he had passed flatus. However, on the morning of his postop day #7, he had complained of nausea, which was unusual for him. I sent him for a CAT scan immediately and this had shown air bubbles around the anastomotic site consistent with an anastomotic leak. I therefore took him to surgery for laparotomy that same day. The anastomosis was resected. He had an end ileostomy placed. This was a long procedure in view of his morbid obesity and because of the acute inflammatory changes surrounding the anastomotic leak site. He did not have any significant fecal spillage, however. He was transferred to the [facility] postoperatively. He was on a HEAD WAITER/WAITRESS pump for pain control. He stoma had started to work on POD 1 and he had been on clear liquids at this point and this was advanced on postop day #2. He continued to tolerate this. He had a TRINY drain in place. He had significant pain. He needed significant pain management with the HEAD WAITER/WAITRESS pump, so this was kept until postop day #4. He continued to do well and had increasing levels of activity. He remained afebrile. His TRINY drain was removed on postop day #7, and he was discharged that day. At the time of his discharge, he was tolerating regular diet. His stoma had been functioning well. Good pain control. He was discharged with instructions to see me in the office. A visiting nurse was arranged to follow him as well for stoma care. 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 OTHER DIAGNOSES: 1. Anastomotic leak postop. 2. Hypertension. 3. Gout. DISCHARGE MEDICATIONS: Augmentin 875 mg p.o. b.i.d., atenolol 50 mg daily, Percocet 5/325 one to two q.4 p.r.n., and allopurinol 300 mg daily. PERTINENT LABS: Hemoglobin 8.6, white count is 9.5, and platelets 243. Sodium 137, potassium 3.6, BUN 7, creatinine 0.77. CEA level was 1.4. PROCEDURE DONE: 1. Right hand-assisted laparoscopic right colon resection, March 08, 2020. 2. Laparotomy, resection of the anastomosis and end ileostomy for anastomotic leak. CONSULTATION: Hospitalist Service. MD LIANA Macias/ABIGAIL / [id number] MTDD
== END 2020-03-21 15:20 | disposition home or self-care (01) | DRG 230 ==
LOC: HO.S3 03-14 18:52 → HO.IMC 03-14 18:56
PROVIDERS: Internal Medicine Gastroenterology; Nurse Practitioner; Admitting Provider Surgery; PCP Internal Medicine; Visit Provider Surgery
PROC: 0DBK0ZZ Excision of Ascending Colon, Open Approach (ICD-10-PCS; principal; 2020-03-08 09:30)
PROC: 0D1B0Z4 Bypass Ileum to Cutaneous, Open Approach (ICD-10-PCS; CPT 49000; principal; 2020-03-14 13:00)
DX: C18.2 Malignant neoplasm of ascending colon (principal); E66.01 Morbid (severe) obesity due to excess calories; K91.89 Other postprocedural complications and disorders of digestive system; F17.210 Nicotine dependence, cigarettes, uncomplicated; M10.9 Gout, unspecified; Z71.6 Tobacco abuse counseling; I10 Essential (primary) hypertension; K66.0 Peritoneal adhesions (postprocedural) (postinfection); Z68.36 Body mass index [BMI] 36.0-36.9, adult; Z20.828 Contact with and (suspected) exposure to other viral communicable diseases; Z79.899 Other long term (current) drug therapy
CPT/HCPCS: 36415; 74177; 80048; 82378; 82947; 85014; 85018; 85027; 86850; 86900; 86901; 88307; 88309; 88329; 88360; 99024; 99231; C1758; J0131; J0330; J1100; J1170; J2250; J2270; J2405; J2543; J2765; J3010; Q9967; U0003

== ENCOUNTER → 2020-03-28 15:53 | Outpatient (BNVA) | payer OTHER, SELFPAY | PROVIDERS: PCP Internal Medicine; Referring Provider Internal Medicine; Visit Provider Surgery | DX: Z76.89 Persons encountering health services in other specified circumstances (principal) ==

== ENCOUNTER 2020-04-06 08:00 | Outpatient (REF) | payer OTHER, SELFPAY ==
--- NOTE | 2020-04-06 08:03 | CT_ITS ---
EXAMINATION: CT CHEST, ABDOMEN AND PELVIS WITH CONTRAST CLINICAL INFORMATION: Colonic mass. Staging. COMPARISON: CT abdomen and pelvis with contrast 03/14/2020 TECHNIQUE: 5 mm thin axial and reformatted 3 mm thin sagittal and coronal images of chest, abdomen and pelvis were obtained following IV 100 mL Omnipaque 350. DLP 854. FINDINGS: CHEST: The lungs are well expanded without any acute pneumonic consolidation. There is bilateral apical parenchymal scarring and apical pleural thickening. There is ill-defined round 7 mm density right upper lobe axial image 175/7. A 4 mm nodule is seen right lower lobe axial image 247/7, 4 mm subpleural-based nodule right lower lobe axial image 241/7, 3 mm nodule left lower lobe posterior segment image 252/7, 4 mm fissural nodule left lung axial image 252/7, 2 mm fissural nodule right lung axial image 337/7, ill-defined 3 mm nodule right middle lobe axial image 339/7. The heart size and the great vessels are normal caliber. There are multiple calcified and noncalcified lymph nodes seen. The largest calcified pretracheal lymph node short axis measures 1.5 cm axial image 19/3 and subcarinal space measures 1.2 cm axial image 25/3. There is no pericardial effusion. There is no pleural effusion, thickening or calcification. Small shotty lymph nodes are seen in the axilla with the largest one measuring 1.1 cm. The chest wall is unremarkable. ABDOMEN AND PELVIS: The liver is homogeneous in density, normal size, shape and position. No focal lesion or intrahepatic ductal dilatation seen. The gallbladder is nondistended and appears unremarkable. The spleen is enlarged without any focal lesion. The pancreas is unremarkable with normal size and density. Bilateral adrenal glands are unremarkable. Both kidneys are normal size, shape and position. There is normal cortical thickness. A small 9 mm hypodensity upper pole left kidney likely small cyst. The right lower quadrant ileostomy with oral contrast opacifying the small bowel loops. There is fat stranding with small pockets of air collection in right upper quadrant. No more anastomotic segment seen between the transverse colon and the small bowel loops. The entire descending and sigmoid colon is collapsed. There is some stool visualized in the left transverse colon. The left transverse colon appears blind-ending medially. The abdominal aorta is normal caliber. There are several small shotty lymph nodes in the retroperitoneum. A 9 mm lymph node anterior to the aortocaval region image 35/3 is again visualized. The abdominal wall appears unremarkable. Imaging through the pelvis reveals unremarkable urinary bladder, prostate gland. No free fluid, no abnormal pelvic lymph nodes or inguinal hernia seen. Bone windows show no lytic or sclerotic process. There is mild spondylosis throughout dorsal and lumbar spine. CT/CT abdomen pelvis w con IMPRESSION: Multiple bilateral small pulmonary nodules, suspicious. Small shotty mediastinal lymph nodes, with the largest measuring 1.1 cm. Evidence of resection of colon with anastomosis and the ileocolic region in the right upper quadrant. There is a right lower quadrant ileostomy and a blind-ending transverse colon. Fat stranding and pockets of air collection are seen in the right upper quadrant mesentery. These are similar to last CT abdomen exam Multiple small retroperitoneal lymph nodes measuring 9 mm and less. No obvious bony lesions seen except for spondylosis throughout dorsal and lumbar spine.
[2020-04-06] MEDS: Barium Sulfate Oral (Mocha) 450 ML ORAL.SUSP 900 ML PO (10:26)
[2020-04-06] MEDS: iohexoL 350 MG/ML 100 ML INFUS..BTL 85 ML IV (10:26)
== END 2020-04-06 08:01 | disposition home or self-care (01) ==
LOC: HO.CT 08:00
PROVIDERS: PCP Internal Medicine; Visit Provider Internal Medicine
DX: Z12.11 Encounter for screening for malignant neoplasm of colon (principal)
CPT/HCPCS: 71260; 74177; Q9967

== ENCOUNTER → 2020-04-20 13:55 | Outpatient (BNVA) | payer OTHER, SELFPAY | PROVIDERS: PCP Internal Medicine; Visit Provider Surgery | DX: Z76.89 Persons encountering health services in other specified circumstances (principal) ==

== ENCOUNTER → 2020-04-28 13:06 | Outpatient (BNVA) | payer OTHER, MEDICAID, SELFPAY | PROVIDERS: PCP Internal Medicine; Visit Provider Surgery | DX: Z76.89 Persons encountering health services in other specified circumstances (principal) ==

== ENCOUNTER 2020-05-03 08:56 | Day surgery (SDC) | payer OTHER, SELFPAY ==
[2020-05-03 09:14] VITALS: BMI 33.7
[2020-05-03 09:59] LABS: Prothrombin Time 11.4 SEC (10.8-13.0)
[2020-05-03 10:01] LABS: Partial Thromboplastin Time 30.4 SEC (24.1-38.0)
--- NOTE | 2020-05-03 10:37 | IR_ITS ---
PROCEDURE: IR INSERTION OF TUNNEL CATHETER CLINICAL INFORMATION: Colon cancer for chemotherapy COMPARISON: None TECHNIQUE: Procedure and risks and benefits including bleeding, infection and pneumothorax were discussed with the patient and informed consent was obtained. All elements of maximal sterile barrier technique followed including use of cap, mask, sterile gown, sterile gloves, a sterile full body drape and hand hygiene. Also followed skin preparation with 2% chlorhexidine for cutaneous antisepsis, and sterile ultrasound preparation with sterile gel and probe cover when applicable. The right neck and chest were prepped and draped in the usual sterile fashion. The skin and soft tissues of the right lower neck were anesthetized with 1% lidocaine with epinephrine. Using ultrasound guidance and a 5 Thai micropuncture system, right internal jugular vein access was obtained. Over an 018 wire, a 5 Thai dilator was positioned in the SVC. The skin and soft tissues of the right upper anterior chest were anesthetized with 1% lidocaine with epinephrine. A small incision was made. Using blunt dissection, subcutaneous pocket was created. A subcutaneous tunnel from the chest to the neck was anesthetized with 1% lidocaine plain. Using a tunneler, a 6.6 Thai single-lumen catheter was tunneled from the chest to the neck incision. The catheter was attached to the port. The port and catheter were flushed. The port was positioned in the subcutaneous pocket and secured using two 2-0 nonabsorbable sutures. An 035 guidewire was advanced through the 5 Thai dilator into the IVC. 5 Thai dilator was exchanged for a 7 Thai peel-away sheath. Using bent wire technique, catheter length was estimated and the catheter was cut. Catheter length is 23 cm. The catheter was fed through the peel-away sheath. The neck incision was closed using a 4-0 absorbable subcuticular suture. The chest using three 3-0 absorbable interrupted sutures followed by a running subcuticular 4-0 absorbable suture. The patient received Versed 2 mg, fentanyl 100 mcg and Kefzol 2 g IV during the procedure. Total sedation time was 35 minutes. Fluoroscopy time 0.4 minutes. 1 saved fluoroscopic image. DAP 52 cGy-cm2. Real-time ultrasound guidance was used to document vein patency and for needle entry. A formal ultrasound picture was recorded. FINDINGS: There is a right internal jugular Port-A-Cath with tip projecting over the SVC. IR/IR cvc insert tunnel w prt/electron gun inspector IMPRESSION: 6.6 Thai single-lumen Dignity right internal jugular Port-A-Cath placement.
--- NOTE | 2020-05-03 10:37 | IR_ITS ---
PROCEDURE: IR INSERTION OF TUNNEL CATHETER CLINICAL INFORMATION: Colon cancer for chemotherapy COMPARISON: None TECHNIQUE: Procedure and risks and benefits including bleeding, infection and pneumothorax were discussed with the patient and informed consent was obtained. All elements of maximal sterile barrier technique followed including use of cap, mask, sterile gown, sterile gloves, a sterile full body drape and hand hygiene. Also followed skin preparation with 2% chlorhexidine for cutaneous antisepsis, and sterile ultrasound preparation with sterile gel and probe cover when applicable. The right neck and chest were prepped and draped in the usual sterile fashion. The skin and soft tissues of the right lower neck were anesthetized with 1% lidocaine with epinephrine. Using ultrasound guidance and a 5 [place] micropuncture system, right internal jugular vein access was obtained. Over an 018 wire, a 5 [place] dilator was positioned in the SVC. The skin and soft tissues of the right upper anterior chest were anesthetized with 1% lidocaine with epinephrine. A small incision was made. Using blunt dissection, subcutaneous pocket was created. A subcutaneous tunnel from the chest to the neck was anesthetized with 1% lidocaine plain. Using a tunneler, a 6.6 [place] single-lumen catheter was tunneled from the chest to the neck incision. The catheter was attached to the port. The port and catheter were flushed. The port was positioned in the subcutaneous pocket and secured using two 2-0 nonabsorbable sutures. An 035 guidewire was advanced through the 5 [place] dilator into the IVC. 5 [place] dilator was exchanged for a 7 [place] peel-away sheath. Using bent wire technique, catheter length was estimated and the catheter was cut. Catheter length is 23 cm. The catheter was fed through the peel-away sheath. The neck incision was closed using a 4-0 absorbable subcuticular suture. The chest using three 3-0 absorbable interrupted sutures followed by a running subcuticular 4-0 absorbable suture. The patient received Versed 2 mg, fentanyl 100 mcg and Kefzol 2 g IV during the procedure. Total sedation time was 35 minutes. Fluoroscopy time 0.4 minutes. 1 saved fluoroscopic image. DAP 52 cGy-cm2. Real-time ultrasound guidance was used to document vein patency and for needle entry. A formal ultrasound picture was recorded. FINDINGS: There is a right internal jugular Port-A-Cath with tip projecting over the SVC. IR/IR us guide venous access IMPRESSION: 6.6 [place] single-lumen Dignity right internal jugular Port-A-Cath placement.
[2020-05-03] MEDS: Lidocaine HCl 1%/Epi 1:100,000 20 ML VIAL INFILTRATI (12:00)
--- NOTE | 2020-05-03 12:02 | HO.RADPN ---
RADIOLOGY Narrative Narrative: Right 6.6 Fr Dignity port placed. Tip in SVC.
[2020-05-03 12:10] VITALS: BP 132/87; PULSE 79; RESP 15; TEMP 36.7; O2SAT 98
[2020-05-03 12:25] VITALS: BP 124/75; PULSE 78; RESP 13; O2SAT 99
[2020-05-03 12:40] VITALS: BP 120/75; PULSE 77; RESP 16; O2SAT 99
[2020-05-03 13:01] VITALS: BP 121/74; PULSE 83; RESP 16; TEMP 36.6; O2SAT 97
== END 2020-05-03 13:21 | disposition home or self-care (01) ==
PROVIDERS: PCP Internal Medicine; Visit Provider Radiology Diagnostic Radiology
DX: Z45.2 Encounter for adjustment and management of vascular access device (principal); C18.9 Malignant neoplasm of colon, unspecified; I10 Essential (primary) hypertension; Z90.49 Acquired absence of other specified parts of digestive tract; F17.210 Nicotine dependence, cigarettes, uncomplicated; Z79.899 Other long term (current) drug therapy; Z88.8 Allergy status to other drugs, medicaments and biological substances
CPT/HCPCS: 36415; 36561; 76937; 85610; 85730; 99152; 99153; C1769; C1788; J0690; J1642; J2250; J3010

== ENCOUNTER 2020-05-18 20:33 | Emergency (ER) | payer OTHER, MEDICAID, SELFPAY ==
[2020-05-18 20:50] VITALS: BP 153/52; PULSE 110; RESP 16; TEMP 36.9; O2SAT 97; BMI 33.3
--- NOTE | 2020-05-19 00:03 | ED_ITS ---
HPI - General Adult General Chief complaint: General Medical Stated complaint: colotomy bag problem Time Seen by Provider: 05/18/20 21:56 Source: patient Mode of arrival: ambulatory Limitations: no limitations History of Present Illness HPI narrative: 54-year-old male with past medical history of colon resection with colostomy bag in place secondary to colon cancer performed by Dr. Tijerina April of 2020 and gout presents with irritation around his colostomy site, colostomy bag leaking, and is out of colostomy supplies. He does have an appointment with Dr. Tijerina tomorrow morning. Onset (ago): day(s) (2) Location: abdomen Severity: moderate Severity scale (1-10): 7 Quality: burning Pain Consistency: constant Relieving factors: none Exacerbating factors: movement Associated symptoms: denies other symptoms Related Data Home Medications Medication Instructions Recorded Confirmed allopurinol 300 mg PO DAILY 02/16/20 04/22/20 atenolol 50 mg PO DAILY 02/16/20 04/22/20 Previous Rx's Medication Instructions Recorded ostomy supplies #28.3 g 04/11/20 skin protectants, misc. See Rx Instructions TOPICAL .every 04/12/20 3-4 days #30 ea tramadol [Ultram] 50 mg PO Q8H PRN #30 tab 04/15/20 ring (ostomy supply) 2 #20 ea 04/25/20 aprepitant See Rx Instructions .ROUTE 04/28/20 .COMPLEX #1 ea dexamethasone 4 mg PO BID #30 tab 04/28/20 ondansetron HCl [Zofran] 4 mg PO Q6H PRN #30 tab 04/28/20 Allergies Allergy/AdvReac Type Severity Reaction Status Date / Time omeprazole Allergy Hives Verified 04/20/20 15:36 Review of Systems Review of Systems: Constitutional: No Fever, No Chills ENT/Mouth: No Ear Pain, No Hoarseness, No sore throat Eyes: No Eye Pain, No Swelling, No Redness, No Foreign Body Cardiovascular: No Chest Pain, No SOB Respiratory: No Cough, No Dyspnea Gastrointestinal: No Nausea, No Vomiting, No Diarrhea, No abdominal Pain Genitourinary: No Dysuria, No Hematuria Musculoskeletal: No joint pain, No Myalgias, No Joint Swelling Skin: Positive skin irritation around colostomy bag and under colostomy flange from the 4 to 7 o'clock position. No Skin lacerations Neuro: No Weakness, No Numbness, No Paresthesias, No Loss of Consciousness, No Dizziness, No Headache Psych: No Anxiety/Panic, No Depression Heme/Lymph: no easy bruising, no Lymphadenopathy Endocrine: No Polyuria, No Polydipsia Yes all other systems are reviewed and are negative [facility] Past Medical History Attestation statement: The following information was validated with the patient. Medical History Colon adenocarcinoma Colon cancer Current smoker GERD (gastroesophageal reflux disease) Gout History of colon polyps HTN (hypertension) Hx of gout Hx of sarcoidosis Ileocolic anastomotic leak Increased BMI Indigestion Mass of colon Surgical History H/O inguinal hernia repair Hx of colonoscopy Hx of right inguinal hernia repair S/P right colectomy Social History Social History Household Members: None Housing: Apartment Smoking Status: Light tobacco smoker Tobacco Type: Cigarette Packs Per Day: 0.25 Cigarettes Per Day: 4 Years Smoked: 10 Second Hand Smoke Exposure: Yes Substance Use Type: Marijuana Advance Directives: Yes Advance Directives on File: Yes Advance Directives Date on File: 02/29/20 service: No Current occupational status: employed Physical Exam Vital Signs: Vital Signs: Last Vital Signs Temp 98.4 F 05/18/20 20:50 Pulse 110 H 05/18/20 20:50 Resp 16 05/18/20 20:50 BP 153/52 H 05/18/20 20:50 Pulse Ox 97 05/18/20 20:50 Body Mass Index 33.3 Appearance: Alert. Oriented X3. No acute distress. Eyes: Pupils equal, round and reactive to light. ENT: Pharynx normal. Neck: Normal inspection. Neck supple. CVS: Normal heart rate and rhythm. Pulses normal. Respiratory: No respiratory distress. Breath sounds normal. Abdomen: Excoriation and erythema noted to skin under colostomy flange, stoma is intact, no bleeding noted. Soft watery yellow brown stools noted colostomy bag. Soft and nontender. Skin: Skin warm and dry. Normal skin color. Normal skin turgor. Extremities: No lower extremity edema. Neuro: No motor deficit. No sensory deficit. Course Course Course Narrative: 54-year-old male presents with irritation around his colostomy bag as well as colostomy bag leakage. He has run out of supplies and states t hat the leaking is causing the irritation to his skin. He does have an appointment with Dr. Tijerina tomorrow morning. Plan of care is to treat for pain and to change his colostomy bag. Colostomy bag changed, excoriation noted from the 4:00 to 7 o'clock position underneath the colostomy flange. This INORGAN[employer] CHEMISTRY PROFESSOR and RN at bedside to change this bag. Patient was treated with oxycodone prior to bag change, states that pain was 10/10 while changing the bag, has 4/10 pain be at baseline. Patient verbalized understanding of and agrees to plan of care discharge home. At 1:11 a.m. Patient was ambulated about the unit several times, no leaking from the colostomy bag. Medical Decision Making Differential Diagnosis Differential Diagnosis: Colostomy bag replacement Medical Records Medical records reviewed: Yes I reviewed the patient's medical records. Discharge Plan Discharge Clinical Impression: Colostomy in place, Colostomy care Patient Disposition: Home, Self-Care Instructions: Colostomy Care (ED) Additional Instructions: You were evaluated for irritation to the skin around your colostomy bag and colostomy bag leakage. We replaced your colostomy bag. Please follow-up with Dr. Tijerina tomorrow morning as scheduled. Thank you for choosing this emergency department for evaluation. Please follow-up with primary care physician as needed. Return to the emergency department for any new, concerning, or worsening symptoms. Prescriptions: No Action (DME) ostomy supplies Powder See Rx Instructions .ROUTE .MEDSUPPLY Qty: 28.3 RF: 2 No Sting Barrier Film Pads, Medicated See Rx Instructions topical .every 3-4 days Qty: 30 RF: 3 allopurinol 300 mg Tablet 300 mg PO DAILY RF: 0 atenolol 50 mg Tablet 50 mg PO DAILY RF: 0 tramadol [Ultram] 50 mg Tablet 50 mg PO Q8H PRN (Reason: Pain) Qty: 30 RF: 0 ondansetron HCl [Zofran] 4 mg Tablet 4 mg PO Q6H PRN (Reason: Nausea) Qty: 30 RF: 3 dexamethasone 4 mg Tablet 4 mg PO BID Qty: 30 RF: 3 aprepitant 125 mg (1)- 80 mg (2) Capsule,Dose Pack See Rx Instructions .ROUTE .COMPLEX Qty: 1 RF: 6 (DME) ring (ostomy supply) 2 misc See Rx Instructions .ROUTE .MEDSUPPLY Qty: 20 RF: 3 Referrals: Gary Tijerina MD [Physician] - 2 days (Follow-up with Dr. Tijerina tomorrow as scheduled)
[2020-05-19] MEDS: oxyCODONE HCl Immed Release 5 MG TABLET PO (00:28)
--- NOTE | 2020-05-19 01:08 | PC.NURSE ---
OSTOMY BAG CHANGED WITH CHANDLER PEDRO. BOTTOM OF OSTOMY SECURED WITH ADDITIONAL TEGADERM ADHESIVE. STOMA IS REDDENED, SURROUNDING SKIN IS RED AND RAW . SKIN CLEANED AND ADHESIVE PREP APPLIED. PT TOLERATED PROCEDURE WELL. PT HAS APPOINTMENT WITH AT 9:30AM THIS MORNING (APPROXIMATELY 8 HOURS FROM NOW). PLAN TO DISCHARGE HOME WITH FOLLOW UP WITH .
--- NOTE | 2020-05-19 01:12 | PC.NURSE ---
PATIENT AMBULATING AROUND ED AT THIS TIME. PLAN FOR DISCHARGE HOME.
== END 2020-05-19 01:32 | disposition home or self-care (01) ==
PROVIDERS: Emergency Provider Internal Medicine
DX: K94.00 Colostomy complication, unspecified (principal); F17.210 Nicotine dependence, cigarettes, uncomplicated; Z71.6 Tobacco abuse counseling; Z79.899 Other long term (current) drug therapy
CPT/HCPCS: 99283

== ENCOUNTER 2020-06-20 11:18 | Outpatient (REF) | payer OTHER, MEDICAID, SELFPAY ==
[2020-06-20 11:42] LABS: MANUAL DIFF FLAG NO
[2020-06-20 11:53] LABS: Basophils Percent Auto 0.5 % (0-2); Eosinophils Absolute Auto 0.2 X10*3/uL (0.0-0.4); Eosinophils Percent Auto 2.7 % (0-4); Hematocrit 42.3 % (42-52); Hemoglobin 13.9 g/dl (14.0-18.0); Imm Gran Abs Auto 0.03 X10*3/uL (0.00-0.03); Imm Gran Pct Auto 0.4 % (0.0-0.4); Lymphocytes Absolute Auto 1.5 X10*3/uL (1.2-4.9); Lymphocytes Percent Auto 18.2 % (20-40); Mean Corpuscular HGB Conc 32.9 g/dl (31.0-36.0); Mean Corpuscular Hemoglobin 27.9 pg (27.0-33.0); Mean Corpuscular Volume 84.8 fL (80-98); Mean Platelet Volume 9.4 fL (9.4-12.4); Monocytes Absolute Auto 0.8 X10*3/uL (0.1-1.2); Monocytes Percent Auto 9.4 % (2-11); Neutrophils Absolute Auto 5.6 X10*3/uL (2.0-8.3); Neutrophils Percent Auto 68.8 % (45-73); Platelet Count 165 X10*3/uL (160-400); Red Blood Count 4.99 X10*6/uL (4.60-5.80); Red Cell Distribution Width 19.3 % (11.0-16.0); White Blood Count 8.2 X10*3/uL (4.8-10.8)
[2020-06-20 12:11] LABS: Alanine Aminotransferase 52 U/L (0-40); Albumin Level 3.9 g/dL (3.5-5.0); Alkaline Phosphatase 125 U/L (39-117); Anion Gap 11 (12-20); Aspartate Amino Transferase 34 U/L (5-37); Bilirubin Total 0.5 mg/dL (0.0-1.0); Blood Urea Nitrogen 10 mg/dL (9-16); Calcium 8.6 mg/dL (8.4-10.2); Carbon Dioxide 23 mmol/L (22-29); Chloride 109 mmol/L (96-108); Estimated Glomerular Filt Rate > 60; Glucose Random 97 mg/dL (60-115); Potassium 4.3 mmol/L (3.3-5.1); Sodium 139 mmol/L (135-145)
[2020-06-20 12:18] LABS: Glucose Urine UA NEG (NEG); Leukocyte Esterase Urine NEG (NEG); Nitrite Urine NEG (NEG); Specific Gravity - Urine >= 1.030 (1.005-1.025); Urine Blood TRACE (NEG); Urine Ketones NEG (NEG); Urine Protein TRACE MG/DL (NEG-TRACE)
[2020-06-20 12:19] LABS: Appearance Urine CLEAR; Color Urine YELLOW
[2020-06-20 12:32] LABS: Bacteria Urine 1+ /LPF; Mucus Urine 2+ /LPF; Squamous Epithelial Cell Urine TRACE /LPF; WBC Urine 0-2 /HPF (0-4)
[2020-06-20 12:33] LABS: Sperm Urine NOTED
== END 2020-06-20 11:19 | disposition home or self-care (01) ==
LOC: HO.LAB 11:18
PROVIDERS: PCP Internal Medicine; Visit Provider Internal Medicine
DX: C18.9 Malignant neoplasm of colon, unspecified (principal)
CPT/HCPCS: 36415; 80053; 81001; 83735; 85025

== ENCOUNTER → 2020-06-29 09:21 | Outpatient (BNVA) | payer OTHER, MEDICAID, SELFPAY | PROVIDERS: Visit Provider Surgery ==

== ENCOUNTER → 2020-07-19 15:08 | Outpatient (BNVA) | payer OTHER, MEDICAID, SELFPAY | PROVIDERS: Visit Provider Surgery ==

== ENCOUNTER 2020-08-25 06:26 | Outpatient (REF) | payer MEDICAID, SELFPAY ==
--- NOTE | ~2020-08-25 | CT_ITS ---
EXAMINATION: CT CHEST WITH CONTRAST CLINICAL INFORMATION: Colon cancer, restaging COMPARISON: CT chest 04/06/2020 TECHNIQUE: Multidetector volumetric CT imaging of the chest was obtained after the administration of 50 mL of Omnipaque 350 intravenous contrast without immediate adverse reactions. Axial MIP volume rendering provided. Sagittal and coronal reformatted images were obtained. This CT examination was performed using dose optimization techniques as appropriate, variously including the following: *Automated exposure control *Adjustment of mA and/or kV according to patient size (this includes techniques or standardized protocols for targeted exams where dose is matched to indication/reason for exam; i.e. extremities or head) *Use of iterative reconstruction technique DLP: 213 mGy-cm FINDINGS: LUNGS: There is no airspace consolidation, mass, or interval pulmonary nodule. No increasing nodularity. The central airways are clear. There are some reticular markings with bilateral posterior apical scarring. Mild accentuated reticular markings again noted mid zones. MEDIASTINUM: There is bilateral acute pulmonary embolism, new from prior study 04/06/2020. Emboli involve the distal left main pulmonary artery, left lower lobe pulmonary artery, and lower lobe segmental arteries. There are also acute pulmonary emboli on the right involving middle lobe and lower lobe segmental branches. The heart is normal in size. No right ventricular strain. No pleural effusion. Thoracic aorta normal in caliber. There is no interval hilar or mediastinal mass. Mediastinal adenopathy, many with coarse calcifications are similar in size and number to prior study. PLEURA: There is no pleural effusion. No pleural mass or thickening. AXILLA: No lymphadenopathy. UPPER ABDOMEN: CT abdomen and pelvis described in separate report. OSSEOUS STRUCTURES: Unremarkable. Result called and discussed with Dr. Vidal at [address]/CT chest w con IMPRESSION: 1. New acute bilateral pulmonary embolism. No right ventricular strain. 2. Lungs and mediastinal nodes stable. No progression of disease. 3. CT abdomen and pelvis described in separate report.
--- NOTE | ~2020-08-25 | CT_ITS ---
EXAMINATION: CT ABDOMEN AND PELVIS WITH CONTRAST CLINICAL INFORMATION: Colon cancer, restaging COMPARISON: CT abdomen and pelvis 04/06/2020 TECHNIQUE: Multidetector volumetric images were obtained from the superior aspect of the liver through the pubic symphysis following administration 85 mL of Omnipaque 350 intravenous contrast. Sagittal and coronal reformatted images were obtained on the technologist's workstation. Oral contrast: Yes CT chest also performed and described in separate report. This CT examination was performed using dose optimization techniques as appropriate, variously including the following: *Automated exposure control *Adjustment of mA and/or kV according to patient size (this includes techniques or standardized protocols for targeted exams where dose is matched to indication/reason for exam; i.e. extremities or head) *Use of iterative reconstruction technique DLP: 539 mGy-cm FINDINGS: LUNG BASES: No airspace consolidation or effusion. CT chest described in separate report. LIVER, GALLBLADDER, AND BILIARY TREE: The liver is normal in size and smooth in contour and homogeneous in attenuation. There is mild diffuse hepatic steatosis. No focal hepatic parenchymal lesion or intrahepatic ductal dilatation. The gallbladder is unremarkable with no evidence of radiopaque gallstones, gallbladder wall thickening, or obvious pericholecystic inflammatory changes. PANCREAS: Normal. SPLEEN: The spleen is enlarged similar to prior study measuring 16.3 cm sagittal dimension, prior measurement 16.7 cm. Parenchymal is homogeneous. ADRENAL GLANDS: Normal. KIDNEYS AND URETERS: The kidneys are normal in size and enhance symmetrically. There is a small cyst again noted upper pole left kidney. There is no hydronephrosis, calculi, or perinephric stranding. BLADDER: Unremarkable. GASTROINTESTINAL TRACT: Status post partial colectomy. No obstruction or inflammatory changes. No ascites or fluid collection. ABDOMINAL WALL: No significant hernia is appreciated. LYMPH NODES: No retroperitoneal adenopathy. There is a left external iliac node again seen 1.1 cm short axis and a right inguinal node again noted 1.4 cm short axis similar to prior exam. VASCULAR: Unremarkable. PELVIC VISCERA: Unremarkable. OSSEOUS STRUCTURES: No acute bony abnormality. CT/CT abdomen pelvis w con IMPRESSION: 1. Hepatic steatosis. No metastases. 2. Stable nodes left external iliac and right inguinal regions. No interval adenopathy. 3. Status post partial colectomy. No obstruction or inflammatory changes. No ascites. 4. CT chest described in separate report.
[2020-08-25] MEDS: iohexoL 350 MG/ML 100 ML INFUS..BTL IV (09:13)
[2020-08-25] MEDS: Barium Sulfate Oral (Mocha) 450 ML ORAL.SUSP 900 ML PO (09:15)
== END 2020-08-25 06:27 | disposition home or self-care (01) ==
LOC: HO.CT 06:26
PROVIDERS: Visit Provider Internal Medicine
DX: C18.9 Malignant neoplasm of colon, unspecified (principal)
CPT/HCPCS: 71260; 74177; Q9967

== ENCOUNTER → 2020-12-01 09:26 | Outpatient (BNVA) | payer OTHER, SELFPAY | PROVIDERS: PCP Internal Medicine; Visit Provider Surgery | DX: C18.9 Malignant neoplasm of colon, unspecified (principal) | CPT/HCPCS: 99212 ==

== ENCOUNTER 2021-02-09 08:45 | Outpatient (REF) | payer OTHER, SELFPAY ==
--- NOTE | ~2021-02-09 | CT_ITS ---
EXAMINATION: CT ABDOMEN AND PELVIS WITH CONTRAST CLINICAL INFORMATION: Colon cancer. Restaging. COMPARISON: Previous CT of the abdomen and pelvis August 2020. TECHNIQUE: Multidetector volumetric images were obtained from the superior aspect of the liver through the pubic symphysis following administration 85 mL of Omnipaque 350 intravenous contrast. Sagittal and coronal reformatted images were obtained on the technologist's workstation. Oral contrast: Yes This CT examination was performed using dose optimization techniques as appropriate, variously including the following: *Automated exposure control *Adjustment of mA and/or kV according to patient size (this includes techniques or standardized protocols for targeted exams where dose is matched to indication/reason for exam; i.e. extremities or head) *Use of iterative reconstruction technique DLP: 230 mGy-cm. FINDINGS: LUNG BASES: The visualized lung bases are unremarkable. LIVER, GALLBLADDER, AND BILIARY TREE: The liver is normal in size, shape, and attenuation. No focal hepatic lesion or biliary ductal dilatation is present. The gallbladder is unremarkable with no evidence of radiopaque gallstones, gallbladder wall thickening, or obvious pericholecystic inflammatory changes. PANCREAS: Unremarkable. SPLEEN: Unremarkable. ADRENAL GLANDS: Unremarkable. KIDNEYS AND URETERS: There is a small cyst in the upper pole of the left kidney that is stable. The kidneys are otherwise unremarkable. BLADDER: Not optimally distended. GASTROINTESTINAL TRACT: There is been resection of the right colon and proximal transverse colon. There is a right lower quadrant ileostomy. The remaining colon is unremarkable. ABDOMINAL WALL: There is diastasis of the rectus muscles and diffuse abdominal wall bulge or small hernia containing fat and small bowel. This has a wide neck. There is no evidence of obstruction. LYMPH NODES: There is retroperitoneal lymphadenopathy in the abdomen. Lymph nodes appear slightly increased compared to most recent exam August 2020. Largest retroperitoneal lymph node is an aortocaval lymph node measuring 1.1 x 1.6 cm, axial image 42 series 3 and a left common iliac lymph node measuring 1 x 1.5 cm, axial image 48 series 3. These are minimally increased from 0.8 x 1.3 cm on August 2020 exam. There is a periportal lymphadenopathy that appears slightly increased as well. There is a peritoneal nodule versus lymph node posterior to the duodenum and adjacent to the head of the pancreas that measures 0.4 x 1.3 cm, axial image 33 series 3 compared to 0.2 x 1 cm axial image 31 series 3 on previous exam. There are small retroperitoneal lymph nodes in the pelvis that appear unchanged. VASCULAR: Unremarkable. PELVIC VISCERA: Unremarkable. OSSEOUS STRUCTURES: There are degenerative changes of the spine. CT/CT abdomen pelvis w con IMPRESSION: Increasing retroperitoneal and periportal lymphadenopathy.
--- NOTE | ~2021-02-09 | CT_ITS ---
EXAMINATION: CT CHEST WITH CONTRAST CLINICAL INFORMATION: Colon cancer. Restaging. COMPARISON: Previous chest CT August 2020 TECHNIQUE: Multidetector volumetric CT imaging of the chest was obtained after the administration of 85 mL of Omnipaque 350 intravenous contrast without immediate adverse reactions. Axial MIP volume rendering provided. Sagittal and coronal reformatted images were obtained. This CT examination was performed using dose optimization techniques as appropriate, variously including the following: *Automated exposure control *Adjustment of mA and/or kV according to patient size (this includes techniques or standardized protocols for targeted exams where dose is matched to indication/reason for exam; i.e. extremities or head) *Use of iterative reconstruction technique DLP: 230 mGy-cm FINDINGS: LUNGS: There are increased peripheral interstitial markings and reticular opacities seen in the bilateral lungs predominantly in the upper lungs. This does not appear appreciably changed. There are several parenchymal opacities, for example in the posterior segment of the left upper lobe measuring 5 x 10 mm axial image 122 series 5 and in the superior segment of the right lower lobe measuring 7 mm axial image 168 series 5 that appear unchanged. There may be several small 2-3 mm right lower lobe nodules axial image 300 series 5, axial image 281 series 5, axial image 242 series 5. MEDIASTINUM: There is diffuse mediastinal and hilar lymphadenopathy. Some lymph nodes appear partially calcified. These do not appear changed. Previously identified bilateral pulmonary emboli appear improved. There is residual pulmonary embolism seen in the central left upper and left lower lobes. The heart does not appear enlarged. There is no pericardial effusion. There is a right jugular port with tip projecting over the SVC. PLEURA: There is no pleural effusion. No pleural mass or thickening. AXILLA: No lymphadenopathy. OSSEOUS STRUCTURES: There are degenerative changes of the spine. CT/CT chest w con IMPRESSION: Increased interstitial markings with reticulation and parenchymal opacities predominantly involving the upper lungs. This does not appear appreciably changed. Question small right lower lobe pulmonary nodules. This is difficult to discern given underlying interstitial disease. Attention on follow up recommended. Stable partially calcified mediastinal lymph nodes. Residual pulmonary emboli seen in the left lung.
[2021-02-09] MEDS: Barium Sulfate Oral (Berry) 450 ML ORAL.SUSP 900 ML PO (11:47)
[2021-02-09] MEDS: iohexoL 350 MG/ML 100 ML INFUS..BTL IV (11:47)
== END 2021-02-09 08:46 | disposition home or self-care (01) ==
LOC: HO.CT 08:45
PROVIDERS: Visit Provider Internal Medicine
DX: C18.9 Malignant neoplasm of colon, unspecified (principal)
CPT/HCPCS: 71260; 74177; Q9967

== ENCOUNTER → 2021-02-15 09:24 | Outpatient (BNVA) | payer OTHER, SELFPAY | PROVIDERS: PCP Internal Medicine; Visit Provider Surgery | DX: C18.9 Malignant neoplasm of colon, unspecified (principal); Z93.3 Colostomy status | CPT/HCPCS: 99212 ==

== ENCOUNTER 2021-05-08 14:07 | Inpatient (IN) | payer OTHER, SELFPAY ==
--- NOTE | 2021-05-08 | ECG_ITS ---
Test Reason : TACHYCARDIA Blood Pressure : / mmHG Vent. Rate : 111 BPM Atrial Rate : 111 BPM P-R Int : 172 ms QRS Dur : 096 ms QT Int : 338 ms P-R-T Axes : 039 034 055 degrees QTc Int : 459 ms Sinus tachycardia Otherwise normal ECG No previous ECGs available Referred By: Tiffanie Vidal Electronically Signed By:MISA JEAN MD
--- NOTE | ~2021-05-08 | XR_ITS ---
EXAMINATION: XR CHEST CLINICAL INFORMATION: COVID+, Shortness of breath. History colon cancer. COMPARISON: Chest radiographs 05/19/2007, CT abdomen 02/09/2021 TECHNIQUE: Portable upright AP view of the chest was obtained. FINDINGS: There is right internal jugular tunneled port with tip at distal superior vena cava. Mild coarsening of the bronchovascular markings on the right is chronic findings similar to remote chest 2007. There is no pneumothorax, airspace consolidation, groundglass opacity, or effusion. The heart is normal in size. The vascularity is normal. Hilar and mediastinal contours and visualized bony structures are unremarkable. XR/XR chest 1V IMPRESSION: No acute intrathoracic disease.
--- NOTE | ~2021-05-08 | CT_ITS ---
EXAMINATION: CT ANGIOGRAM OF THE CHEST WITH AND WITHOUT CONTRAST (CT PULMONARY ANGIOGRAM FOR PE) CLINICAL INFORMATION: Reason for Exam hypoxia, tachycardia COMPARISON: Chest x-ray 05/08/2021 TECHNIQUE: Prior to contrast administration, noncontrast localization images were obtained. Subsequently, multidetector volumetric imaging was performed from the thoracic inlet to below the diaphragms following the administration of 80 mL Omnipaque 350 intravenous contrast. No contrast reaction reported Sagittal, coronal, and MIP oblique sagittal reformatted images were obtained on the CT workstation, uploaded to PACS, and reviewed. This CT examination was performed using dose optimization techniques as appropriate, variously including the following: *Automated exposure control *Adjustment of mA and/or kV according to patient size (this includes techniques or standardized protocols for targeted exams where dose is matched to indication/reason for exam; i.e. extremities or head) *Use of iterative reconstruction technique Total exam dose-length product 222 mGy-cm FINDINGS: QUALITY OF STUDY/CONTRAST BOLUS: Satisfactory. PULMONARY ARTERIES: There are small intraluminal filling defect in the left pulmonary artery bifurcation on axial image /. There is mild intravenous contrast seen in the subsegmental arteries and in both lungs likely secondary to a delayed scanning or timing of the bolus. THORACIC AORTA: No aneurysm or dissection. LUNG: The lungs are expanded with patchy groundglass attenuation seen in bilateral upper lobes, right lower lobe and very small patchy groundglass attenuation right middle lobe suggestive of infiltrates. No large consolidation seen. PLEURA: There is no pleural effusion or thickening. MEDIASTINUM: Heart size and the great vessels are normal caliber. There is no pericardial effusion. There are calcified para-aortic and paratracheal lymph nodes likely from old granulomas disease the thyroid lobes are symmetrical and normal. No evidence of septal bowing or right heart strain. CHEST WALL/AXILLA: No axillary or internal mammary lymphadenopathy. OSSEOUS STRUCTURES: There is moderate spondylosis throughout ventral dorsal spine. No lytic or sclerotic process seen. There is no fracture. UPPER ABDOMEN: Visualized liver, spleen, pancreas and bilateral adrenal glands unremarkable. No reflux of contrast into the hepatic veins to suggest elevated right heart pressures. CT/CT angio chest PE protocol IMPRESSION: Positive PE in left lung with a small emboli in the distal left ovary artery branch. There is suboptimal oral contrast in the pulmonary artery secondary to bolus timing and scanning tissue. Scattered groundglass attenuation in both upper lobes and right lower lobe suspicious for underlying inflammatory process likely COVID related Calcified lymph nodes in the mediastinum likely old granulomatous disease. VTE: positive Results were called by phone to Dr. Holder at 4:15 PM
--- NOTE | 2021-05-08 14:24 | PHA.MEDREC ---
Pharmacy Consult ? Medication Reconciliation Pharmacy has completed the medication reconciliation. Patient reports he does take a medication at home for nausea. He state it was the same one he recieve at his appointment today which was zofran. Zofran was last filled in 2020. Pearl Gonzáles, PharmD
--- NOTE | 2021-05-08 14:53 | P.HPHOSP_ITS ---
History of Present Illness Date of Service: 05/08/21 Chief Complaint: nausea, vomiting, shortness of breath This is a 55 yo M with a PMH of Colon Ca - s/p resection, PE on Eliquis, HTN who presented to the oncology clinic for A scheduled chemotherapy session. However he was noted to be short of breath and tachycardic. A COVID-19 swab was checked and was positive. Due to his immune-compromised status and COVID positivity he will be admitted for further treatment. Patient is seen and examined in the Oncology suite. He reports that for the last 4 days he has had trouble breathing, particularly with exertion. He reports that even taking out his garbage was making him short of breath. He is normally able to do this. He reports a nonproductive cough. He denies any fevers or chills. He denies any known sick contacts, and reports that he has in fact had no contact with anybody since . He received his last chemotherapy session about 2 weeks ago. He is not vaccinated. Review of Systems Review of Systems: negative except HPI [facility] Medical History Bilateral pulmonary embolism Colon adenocarcinoma Colon cancer Current smoker GERD (gastroesophageal reflux disease) Gout History of colon polyps HTN (hypertension) Hx of gout Hx of sarcoidosis Ileocolic anastomotic leak Increased BMI Indigestion Family History Mother No problems noted. Father No problems noted. Surgical History H/O inguinal hernia repair Hx of colonoscopy Hx of right inguinal hernia repair S/P right colectomy Social History Household Members: None Housing: Apartment Do you presently have visiting nurse or other home services: No Alcohol intake: current Alcohol intake frequency: a few times a week Alcohol type: beer Cigarette Packs Per Day: 0.25 Years Smoked: 10 Smoked in Last 30 Days: Yes Second Hand Smoke Exposure: Yes Substance Use Type: Marijuana Advance Directives Date on File: 02/29/20 service: No Current occupational status: employed Meds Allergies Allergy/AdvReac Type Severity Reaction Status Date / Time omeprazole Allergy Hives Verified 02/20/21 10:29 Active Medications: Current Medications Acetaminophen (Acetaminophen 325 Mg Tablet) 650 mg PO Q6H PRN PRN Reason: Pain, Mild (Pain Scale 1-3) Pharmacy Consult (Consult Rx Perform Med Rec) 1 each MISCELLANE ONCE PRN PRN Reason: Consult order Sodium Chloride (0.9 % Sodium Chloride Flush 3 Ml Syringe) [facility] Medications Medication Instructions Recorded Confirmed Last Taken Type allopurinol 300 mg tablet 300 mg PO DAILY 02/16/20 05/08/21 05/08/20 History atenolol 50 mg tablet 50 mg PO DAILY 02/16/20 05/08/21 05/08/20 History acetaminophen 325 mg tablet 650 mg PO BID 05/08/21 05/08/21 05/08/20 History gabapentin 300 mg capsule 300 mg PO BID 05/08/21 05/08/21 05/08/20 History tramadol 50 mg tablet (Ultram) 50 mg PO Q8H 05/08/21 05/08/21 05/08/20 History Physical Exam Const: Other: Constitutional - Awake and Alert, Comfortable at rest Eyes - PERRLA, EOMI Cardiovascular - S1S2, RRR, No edema Respiratory - No distress at rest Gastrointestinal - NT / ND; +BS; No rebound or guarding; Colostomy in place, watery stool, stoma appears to be functioning - No CVA tenderness Extremities - no calf tenderness bilaterally, no swellin Musculoskeletal - Normal inspection, normal ROM Skin - Warm/Dry Neurological - Alert & oriented x3, No focal deficit Psychological - Appropriate affect Results Imaging Radiologist's Impressions: Impressions Chest X-Ray 05/08/21 14:05 IMPRESSION: No acute intrathoracic disease. Assessment and Plan (1) COVID-19: Status: Acute (2) Pancytopenia: Status: Acute This is a 55 yo M with a PMH of Colon Ca - s/p resection and now on Chemo, PE on Eliquis, HTN, Neuropathy, who presented for his scheduled chemotherapy but was found to be COVID positive with respiratory symptoms and now will be admitted for further treatment. 1. COVID 19 Symptomatic with tachycardia and shortness of breath+Cough; CXR okay thus far; Symptoms started about 4 days ago (around 05/04). Oxygen saturations on the low end of normal around 92 on RA; CXR without significant findings Will add inflammatory biomakers. Will check LFTs If he desaturates, will start need to start decadron and consult ID for consideration 2. Nausea without vomiting possibly related to COVID hold off on abdominal imaging as his exam is benging if persistent, will proceed with further evaluation will give gentle hydration 3. Pancytopenia possibly related to covid vs recent chemo monitor 4. Pulmonary Embolism Continue his Eliquis 5. HTN continue atenolol Full Code Reports his sister as HCP DVT pptx, on Eliquis Quality Stroke Does the patient have a stroke diagnosis?: No VTE Prior VTE?: No VTE Risk Level:: Medical - moderate - high VTE Device Contraindication: Treatment Not Indicated VTE Drug Contraindication: N/A - Med Ordered
[2021-05-08 15:37] LABS: Alanine Aminotransferase 39 U/L (0-40); Albumin Level 3.9 g/dL (3.5-5.0); Alkaline Phosphatase 75 U/L (39-117); Aspartate Amino Transferase 38 U/L (5-37); Bilirubin Direct 0.3 mg/dL (0.0-0.5); Bilirubin Total 0.4 mg/dL (0.0-1.0); Total Protein 6.6 g/dL (6.5-8.0)
[2021-05-08 15:54] VITALS: BP 126/84; PULSE 112; RESP 18; TEMP 36.1; O2SAT 97
[2021-05-08] MEDS: 0.9 % Sodium Chloride Flush 3 ML SYRINGE IVFLUSH ×2 (17:22→19:53)
[2021-05-08 17:39] VITALS: BMI 36.3
[2021-05-08] MEDS: Dextrose 5 % and 0.9 % NaCl 1,000 ML 50 ML IVCONT (18:03)
[2021-05-08] MEDS: Gabapentin 300 MG CAPSULE PO (19:53)
[2021-05-08] MEDS: guaiFENesin 100 MG/5 ML LIQUID PO (19:53)
[2021-05-08] MEDS: Apixaban 5 MG TABLET PO (19:53)
[2021-05-08 19:54] VITALS: BP 146/90; PULSE 105; RESP 16; TEMP 37.1; O2SAT 96
[2021-05-08 23:08] VITALS: BP 116/76; PULSE 103; RESP 20; TEMP 36.7; O2SAT 96
[2021-05-08] MEDS: traMADoL HCL 50 MG TABLET PO (23:53)
[2021-05-09 03:27] VITALS: BP 119/66; PULSE 109; RESP 18; TEMP 37.1; O2SAT 95
[2021-05-09] MEDS: guaiFENesin 100 MG/5 ML LIQUID PO ×2 (03:31→16:56)
[2021-05-09 06:51] LABS: Anion Gap 12 (12-20); Blood Urea Nitrogen 8 mg/dL (9-16); Calcium 8.1 mg/dL (8.4-10.2); Carbon Dioxide 25 mmol/L (22-29); Chloride 104 mmol/L (96-108); Creatinine Clr Calc Pharmacy 118.1; Estimated Glomerular Filt Rate > 60; Glucose Random 91 mg/dL (60-115); Potassium 3.8 mmol/L (3.3-5.1); Sodium 137 mmol/L (135-145)
[2021-05-09 07:04] LABS: Hematocrit 42.3 % (42.0-52.0); Hemoglobin 14.6 g/dl (14.0-18.0); Mean Corpuscular HGB Conc 34.5 g/dl (31.0-36.0); Mean Corpuscular Hemoglobin 34.4 pg (27.0-33.0); Mean Corpuscular Volume 99.5 fL (80.0-98.0); Mean Platelet Volume 9.9 fL (9.4-12.4); Platelet Count 105 X10*3/uL (160-400); Red Blood Count 4.25 X10*6/uL (4.60-5.80); Red Cell Distribution Width 14.2 % (11.0-16.0); White Blood Count 5.2 X10*3/uL (4.8-10.8)
[2021-05-09 07:36] VITALS: BP 127/79; PULSE 111; RESP 18; TEMP 36.4; O2SAT 93
[2021-05-09] MEDS: Apixaban 5 MG TABLET PO (09:05)
[2021-05-09] MEDS: 0.9 % Sodium Chloride Flush 3 ML SYRINGE IVFLUSH ×3 (09:05→21:09)
[2021-05-09] MEDS: atenoloL 50 MG TABLET PO (09:05)
[2021-05-09] MEDS: traMADoL HCL 50 MG TABLET PO ×3 (09:05→23:42)
[2021-05-09] MEDS: allopurinoL 300 MG TABLET PO (09:05)
[2021-05-09] MEDS: Gabapentin 300 MG CAPSULE PO ×2 (09:05→21:09)
--- NOTE | 2021-05-09 11:26 | MHC.CM.PN ---
per rounds pt to be dcd home no skilled servceisptmhas car in parking lot and will drive himself home
[2021-05-09 16:00] VITALS: BP 116/56; PULSE 100; RESP 20; TEMP 37.4; O2SAT 93
[2021-05-09] MEDS: iohexoL 350 MG/ML 100 ML INFUS..BTL IV (16:00)
--- NOTE | 2021-05-09 16:16 | P.PNIM_ITS ---
Subjective Subjective Date of Service: 05/09/21 Interval History: f/u covid, tachy and hypoxia Review of Systems no sob no fever Physical Exam Vital Signs: Vital Signs: Last Vital Signs Temp 97.6 F 05/09/21 07:36 Pulse 111 H 05/09/21 07:36 Resp 18 05/09/21 07:36 BP 127/79 05/09/21 07:36 Pulse Ox 93 05/09/21 07:36 BMI result Body Mass Index 36.3 Const: Other: General: AO X 3, no acute distress Resp: CTA bilateral CVS: S1,S2,RRR GI: +BS, NT, no distention Skin: No rash Neuro: motor grossly intact Psych: appropriate affect Objective Data Active Medications Acetaminophen (Acetaminophen 325 Mg Tablet) 650 mg PO Q6H PRN PRN Reason: Pain, Mild (Pain Scale 1-3) Allopurinol (Allopurinol 300 Mg Tablet) 300 mg PO DAILY [facility] Last Admin: 05/09/21 09:05 Dose: 300 mg Documented by: MIN Apixaban (Apixaban 5 Mg Tablet) 5 mg PO BID [facility] Last Admin: 05/09/21 09:05 Dose: 5 mg Documented by: MIN Atenolol (Atenolol 50 Mg Tablet) 50 mg PO DAILY [facility]; Protocol Last Admin: 05/09/21 09:05 Dose: 50 mg Documented by: MIN Gabapentin (Gabapentin 300 Mg Capsule) 300 mg PO BID [facility] Last Admin: 05/09/21 09:05 Dose: 300 mg Documented by: MIN Guaifenesin (Guaifenesin 100 Mg/5 Ml Liquid) 5 ml PO Q6H PRN PRN Reason: Cough Last Admin: 05/09/21 03:31 Dose: 5 ml Documented by: GUIDO Dextrose/Sodium Chloride (D5ns) 1,000 mls @ 50 mls/hr IVCONT .Q20H [facility] Last Admin: 05/09/21 10:27 Dose: Not Given Documented by: MIN Non-Admin Reason: pt to be discharged Ondansetron HCl (Ondansetron Hcl 4 Mg/2 Ml Vial) 4 mg IVPUSH Q8H PRN PRN Reason: Nausea and Vomiting Pharmacy Consult (Consult Rx Perform Med Rec) 1 each MISCELLANE ONCE PRN PRN Reason: Consult order Sodium Chloride (0.9 % Sodium Chloride Flush 3 Ml Syringe) 3 ml IVFLUSH QSHIFT [facility] Last Admin: 05/09/21 09:05 Dose: 3 ml Documented by: MIN Tramadol HCl (Tramadol Hcl 50 Mg Tablet) 50 mg PO Q8H [facility] Last Admin: 05/09/21 09:05 Dose: 50 mg Documented by: MIN Zolpidem Tartrate (Zolpidem Tartrate 5 Mg Tablet) 5 mg PO BEDTIME PRN PRN Reason: Insomnia Labs CBC & Chem 7: 05/09/21 06:24 05/09/21 06:24 Labs: Laboratory Results - last 24 hr 05/09/21 05/09/21 06:24 06:24 MCV 99.5 H MCH 34.4 H MCHC 34.5 RDW 14.2 Plt Count 105 L MPV 9.9 Absolute Nucleated RBC 0.000 Nucleated RBC % (auto) 0.0 Anion Gap 12 Estim Creat Clear Calc 118.1 Estimated GFR > 60 Random Glucose 91 Calcium 8.1 L Assessment and Plan (1) Pulmonary embolism: Status: Acute Assessment and Plan: 55 yo M with a PMH of Colon Ca - s/p resection and now on Chemo, PE on Eliquis, HTN, Neuropathy, who presented for his scheduled chemotherapy but was found to be COVID positive with respiratory symptoms and now will be admitted for further treatment. 1. COVID 19--assymptomatic and not hypoxic, so hold meds including steroid at this time 2. Nausea without vomiting possibly related to COVID--resolved. 3. Pancytopenia--d/t chemo, monitor 4. Pulmonary Embolism, CT chest demonstrate what looks like new PE and possible failure of Eliquis and will therefore change Eliquis to Lovneox and as Hematoligst to comment on it. 5. HTN continue atenolol Full Code Reports his sister as HCP DVT pptx, on Eliquis Quality Stroke Does the patient have a stroke diagnosis?: No VTE Prior VTE?: No VTE Risk Level:: Medical - moderate - high VTE Device Contraindication: Treatment Not Indicated VTE Drug Contraindication: N/A - Med Ordered
[2021-05-09 20:00] VITALS: BP 144/89; PULSE 100; RESP 20; TEMP 37.2; O2SAT 91
[2021-05-09] MEDS: Enoxaparin Sodium 120 MG/0.8 ML SYRINGE 110 MG SUBCUT (21:09)
[2021-05-09 23:46] VITALS: BP 153/67; PULSE 114; RESP 20; TEMP 37.9; O2SAT 91
[2021-05-09] MEDS: Acetaminophen 325 MG TABLET 650 MG PO (23:52)
[2021-05-10 03:56] VITALS: BP 144/62; PULSE 96; RESP 20; TEMP 37.8; O2SAT 92
--- NOTE | 2021-05-10 07:00 | MHC.CM.PN ---
Addendum entered by Danna Falcon 05/10/21 14:44: DC on hold. Hemonc consult has been ordered. Original Note: Patient has been medically cleared for dc to home today, self care.
[2021-05-10 07:08] VITALS: BP 129/73; PULSE 94; RESP 18; TEMP 36.1; O2SAT 95
[2021-05-10] MEDS: guaiFENesin 100 MG/5 ML LIQUID PO ×3 (09:29→22:51)
[2021-05-10] MEDS: traMADoL HCL 50 MG TABLET PO ×3 (09:31→22:47)
[2021-05-10] MEDS: Gabapentin 300 MG CAPSULE PO ×2 (09:31→22:48)
[2021-05-10] MEDS: allopurinoL 300 MG TABLET PO (09:31)
[2021-05-10] MEDS: atenoloL 50 MG TABLET PO (09:32)
[2021-05-10] MEDS: Enoxaparin Sodium 120 MG/0.8 ML SYRINGE 110 MG SUBCUT (09:32)
[2021-05-10] MEDS: 0.9 % Sodium Chloride Flush 3 ML SYRINGE IVFLUSH ×3 (09:35→22:48)
--- NOTE | 2021-05-10 10:28 | PM.EVENT ---
Patient with metastatic colorectal cancer who was initially diagnosed with bilateral PE in August 2020. Patient has been on anticoagulation with Lovenox for initially followed by [facility]. He is now admitted for COVID-19 infection with mild hypoxemia. His CT angiogram shows bilateral residual PE, I discussed with Dr. Gardner, this is unchanged from his prior scan in February 2021. He can therefore be continued on Eliquis, this would not be considered failure of Eliquis. His symptoms are probably related to COVID-19 infection. Thank you.
[2021-05-10 11:18] VITALS: BP 110/67; PULSE 109; RESP 18; TEMP 36; O2SAT 96
--- NOTE | 2021-05-10 13:14 | P.DS_ITS ---
DS: Providers Provider Date of Service: 05/10/21 Date of admission: 05/08/21 14:07 Primary care physician: Tiffanie Vidal MD DS: Diagnosis Discharge Diagnosis (1) COVID-19: Status: Acute (2) Pancytopenia: Status: Acute DS: Summary Hospital Course Hospital Course: Patient was seen in f/u for in oncology and was noted to be slighty tachy and tested positive for covid, he was not hypoxic so was not started on steroid. He was monitored overnight and remains assymptomatic O2 around 93 HR is variable, presently 109.. He had a CT of chest which showed l PEs and so was switched breifly to Lovenox. After close review of the imaging the PE finding are consistent with residual PEs from last August and therefore Dr. Vidal recommend continuing managment with Eliquis. He is not hypoxic and therefore no indication for steroid for covid but should follow isolation guidelines. Time Spent with Patient Time attestation: Total time spent providing and/or coordinating discharge services: Discharge coordination time: Greater than 30 minutes Quality: Stroke Does the patient have a stroke diagnosis?: No Physical Exam Vital Signs: Vital Signs: Selected Entries 05/10/21 11:18 Temperature 96.8 F Pulse Rate 109 H Respiratory Rate 18 Blood Pressure 110/67 Pulse Oximetry 96 Oxygen Delivery Me thod Room Air General: AO X 3, no acute distress Resp: CTA bilateral CVS: S1,S2,RRR GI: +BS, NT, no distention Skin: No rash Neuro: motor grossly intact Psych: appropriate affect DS: Data Data Completed and Pending Completed studies during hospitalization [Text1]: Procedures Bypass Ileum to Cutaneous, Open Approach (03/08/20) Excision of Ascending Colon, Open Approach (03/08/20) Excision of Ileum, Open Approach (03/08/20) Release Peritoneum, Open Approach (03/08/20) Labs on day of discharge: Laboratory Results - last 24 hr 05/08/21 05/09/21 05/09/21 12:15 06:24 06:24 WBC 5.2 RBC 4.25 L Hgb 14.6 Hct 42.3 MCV 99.5 H MCH 34.4 H MCHC 34.5 RDW 14.2 Plt Count 105 L MPV 9.9 Absolute Nucleated RBC 0.000 Nucleated RBC % (auto) 0.0 Sodium 137 Potassium 3.8 Chloride 104 Carbon Dioxide 25 Anion Gap 12 BUN 8 L Creatinine 0.87 Estim Creat Clear Calc 118.1 Estimated GFR > 60 Random Glucose 91 Calcium 8.1 L Total Bilirubin 0.4 Direct Bilirubin 0.3 AST 38 H ALT 39 Alkaline Phosphatase 75 Total Protein 6.6 Albumin 3.9 Discharge Plan Discharge Anticipated Discharge Date/Time: 05/09/21 11:56 Patient Disposition: Home, Self-Care Discharge Diagnosis: covid Referrals: Tiffanie Vidal MD [Primary Care Provider] - 1 Week Discharge Medications: Continued (DME) ostomy supplies Powder See Rx Instructions .ROUTE .MEDSUPPLY Qty: 28.3 RF: 2 (DME) SenSura Flex Ostomy Pouch Misc See Rx Instructions .ROUTE .MEDSUPPLY Qty: 30 RF: 6 (DME) Adhesive Remover Wipes Swab See Rx Instructions .ROUTE .MEDSUPPLY Qty: 50 RF: 6 allopurinol 300 mg Tablet 300 mg PO DAILY RF: 0 atenolol 50 mg Tablet 50 mg PO DAILY RF: 0 Eliquis 5 mg Tablet 5 mg PO BID Qty: 60 RF: 6 zolpidem [Ambien] 5 mg Tablet 5 mg PO BEDTIME PRN (Reason: Insomnia) Qty: 30 RF: 0 gabapentin 300 mg capsule 300 mg PO BID RF: 0 tramadol [Ultram] 50 mg tablet 50 mg PO Q8H RF: 0 acetaminophen 325 mg Tablet 650 mg PO BID RF: 0 (DME) ring (ostomy supply) 2 misc See Rx Instructions .ROUTE .MEDSUPPLY Qty: 20 RF: 3 Discharge Orders: Discharge Order (Routine); Ordered 05/09/21 Ordered By: Samm Dickson Diet: advance to usual diet Activity on Discharge: As tolerated Stand Alone Forms: Patient Portal Discharge page Care Plan Goals: full recovery from covid Health Concerns: covid Plan of Treatment: follow up with your doctor in a week, continue taking Eliquis, the next dose should not be earlier than 9 pm tonight Follow CDC guideline for covid isolation: CDC Guidelines for home isolation: - Stay away from others - Limit contact with pets and animals: If you must care for a pet, wash your hands before and after interacting with them - Wear a mask if you are sick - Cover your mouth and nose with a tissue when you cough or sneeze. Dispose of tissues in a lined trash can and wash your hands immediately with soap and water for at least 20 seconds. If soap and water are not available, clean hands with alcohol-based hand journeyman carpenter that contains at least 60% alcohol. - Clean your hands often with soap and water for at least 20 seconds - Avoid touching your eyes, nose and mouth with unwashed hands - Do not share dishes, drinking glasses, cups, eating utensils, towels, or bedding with other people in your home. After using these items, wash them thoroughly with soap and water or put in the extrusion supervisor. - Clean high-touch surfaces in your isolation area ( sick room and bathroom) every day; let a caregiver clean and disinfect high-touch surfaces in other areas of the home. Clean the area or item with soap and water or another detergent if it is dirty. Then, use a household disinfectant. Seek medical attention, but call first: - Seek medical care right away if your illness is worsening (for example, if you have difficulty breathing). - Call your doctor before going in: Before going to the doctor's office or emergency room, call ahead and tell them your symptoms. They will tell you what to do. - If possible, put on a facemask before you enter the building. If you can't put on a facemask, try to keep a safe distance from other people (at least 6 feet away). This will help protect the people in the office or waiting room. - Follow care instructions from your healthcare provider and local health department: Your local health authorities will give instructions on checking your symptoms and reporting information. Emergency warning signs for COVID-19: - Difficulty breathing or shortness of breath - Persistent pain or pressure in the chest - New confusion or inability to arouse - Bluish lips or face Additional Instructions: - [] Assessment: as above
[2021-05-10 15:13] VITALS: BP 137/76; PULSE 86; RESP 18; TEMP 37.1; O2SAT 98
[2021-05-10] MEDS: ondansetron HCL 4 MG/2 ML VIAL IVPUSH (18:09)
[2021-05-10 19:28] VITALS: BP 107/69; PULSE 99; RESP 16; TEMP 36.1; O2SAT 90
[2021-05-10 23:38] VITALS: BP 122/74; PULSE 99; RESP 16; TEMP 36.7; O2SAT 91
[2021-05-11 03:17] VITALS: BP 128/77; PULSE 94; RESP 17; TEMP 36.8; O2SAT 95
[2021-05-11 07:42] VITALS: BP 126/72; PULSE 98; RESP 20; TEMP 36.7; O2SAT 86
[2021-05-11] MEDS: Acetaminophen 325 MG TABLET 650 MG PO (09:57)
[2021-05-11] MEDS: atenoloL 50 MG TABLET PO (09:57)
[2021-05-11] MEDS: traMADoL HCL 50 MG TABLET PO (09:57)
[2021-05-11] MEDS: 0.9 % Sodium Chloride Flush 3 ML SYRINGE IVFLUSH (09:57)
[2021-05-11] MEDS: Gabapentin 300 MG CAPSULE PO (09:57)
[2021-05-11] MEDS: allopurinoL 300 MG TABLET PO (09:58)
[2021-05-11] MEDS: Apixaban 5 MG TABLET PO (09:58)
[2021-05-11] MEDS: guaiFENesin 100 MG/5 ML LIQUID PO (10:05)
--- NOTE | 2021-05-11 11:45 | MHC.CM.PN ---
Patient discharged to home. He has private transportation.
--- NOTE | 2021-05-11 12:32 | PM.EVENT ---
Event Note Date of Service: 06/10/21 Event Note: Pt was discharged on 05/10/21. Didn't leave for clerical issues.
== END 2021-05-11 11:22 | disposition home or self-care (01) | DRG 137 ==
LOC: HO.IMC 14:09
PROVIDERS: Admitting Provider Family Medicine; PCP Internal Medicine; Visit Provider Internal Medicine
DX: U07.1 COVID-19 (principal); D61.818 Other pancytopenia; C18.9 Malignant neoplasm of colon, unspecified; G62.9 Polyneuropathy, unspecified; I10 Essential (primary) hypertension; F17.210 Nicotine dependence, cigarettes, uncomplicated; Z71.6 Tobacco abuse counseling; Z86.711 Personal history of pulmonary embolism; Z79.01 Long term (current) use of anticoagulants; Z79.899 Other long term (current) drug therapy
CPT/HCPCS: 36415; 71045; 71275; 80048; 80076; 85027; 93005; J1650; J2405; Q9967

== ENCOUNTER 2021-07-05 08:46 | Outpatient (REF) | payer OTHER, SELFPAY ==
--- NOTE | ~2021-07-05 | CT_ITS ---
EXAMINATION: CT ABDOMEN AND PELVIS WITH CONTRAST CLINICAL INFORMATION: Colon cancer. Assess response to treatment. COMPARISON: None TECHNIQUE: Multidetector volumetric images were obtained from the superior aspect of the liver through the pubic symphysis following administration 85 mL of Omnipaque 350 intravenous contrast. Sagittal and coronal reformatted images were obtained on the technologist's workstation. Oral contrast: No This CT examination was performed using dose optimization techniques as appropriate, variously including the following: Automated exposure control. Adjustment of mA and/or kV according to patient size (this includes techniques or standardized protocols for targeted exams where dose is matched to indication/reason for exam; i.e. extremities or head). Use of iterative reconstruction technique. DLP: 624 mGy-cm FINDINGS: LUNG BASES: The visualized lung bases are unremarkable. LIVER, GALLBLADDER, AND BILIARY TREE: The liver is normal in size, shape, and hypo-attenuation. No focal hepatic lesion or biliary ductal dilatation is present. The gallbladder is unremarkable with no evidence of radiopaque gallstones, gallbladder wall thickening, or obvious pericholecystic inflammatory changes. PANCREAS: Unremarkable. SPLEEN: Unremarkable. ADRENAL GLANDS: Unremarkable. KIDNEYS AND URETERS: The kidneys are normal in size, shape, and attenuation. No hydronephrosis, hydroureter, or calculi seen. No perinephric stranding. Small exophytic left renal cyst seen. BLADDER: Unremarkable. GASTROINTESTINAL TRACT: The right colon has been resected with right lower quadrant ileostomy noted. Rest the visualized colon and the small bowel loops are normal caliber. ABDOMINAL WALL: No significant hernia is appreciated. LYMPH NODES: There are small retroperitoneal lymph nodes. The largest aortocaval lymph node transversely measures 1.6 cm. Previously it measured the same size. There are smaller left para-aortic and left common iliac lymph nodes which are the same size. Small periportal lymphadenopathy seen previously is grossly unchanged. Peritoneal nodule versus lymph node posterior duodenum and adjacent to the head of the pancreas is stable. There are no new lymph nodes visualized. VASCULAR: Unremarkable. PELVIC VISCERA: The prostate gland is normal size. No free fluid. No abnormal-sized external iliac lymph nodes seen. No hernia. OSSEOUS STRUCTURES: No lytic or sclerotic process. There is mild degenerative changes with vacuum disc phenomena of L5-S1 disc level and mild posterior spondylosis L4-L5 and L5-S1 disc levels. CT/CT abdomen pelvis w con IMPRESSION: Hepatic steatosis without any focal lesion. Retroperitoneal, periportal and left common iliac lymph nodes are stable in size. There is no new nodules seen. Right colectomy with right lower quadrant ileostomy, stable. Small partially exophytic cyst in the upper pole of left kidney is stable. Fleischner guidelines were followed.
[2021-07-05] MEDS: iohexoL 350 MG/ML 100 ML INFUS..BTL IV (11:29)
== END 2021-07-05 08:47 | disposition home or self-care (01) ==
LOC: HO.CT 08:46
PROVIDERS: PCP Internal Medicine; Visit Provider Internal Medicine
DX: C18.9 Malignant neoplasm of colon, unspecified (principal)
CPT/HCPCS: 74177; Q9967

== ENCOUNTER → 2021-07-17 13:52 | Outpatient (BNVA) | payer OTHER, MEDICAID, SELFPAY | PROVIDERS: PCP Internal Medicine; Referring Provider Internal Medicine; Visit Provider Surgery | DX: C18.9 Malignant neoplasm of colon, unspecified (principal) | CPT/HCPCS: 99212 ==

== ENCOUNTER 2021-11-22 06:51 | Outpatient (REF) | payer OTHER, MEDICAID, SELFPAY ==
--- NOTE | ~2021-11-22 | CT_ITS ---
EXAMINATION: CT CHEST, ABDOMEN AND PELVIS WITH CONTRAST CLINICAL INFORMATION: Restaging colon cancer. COMPARISON: Prior CT examinations, most recently 07/05/2021 and 05/09/2021. TECHNIQUE: Multidetector volumetric imaging was performed from the thoracic inlet through the pubic symphysis following administration of 85 mL Omnipaque 350 intravenous contrast. Sagittal and coronal reformatted images were obtained on the technologist workstation. This CT examination was performed using dose optimization techniques as appropriate, variously including the following: *Automated exposure control. *Adjustment of mA and/or kV according to patient size (this includes techniques or standardized protocols for targeted exams where dose is matched to indication/reason for exam, i.e., extremities or head). *Use of iterative reconstruction technique. DLP: A 67 mGy-cm. FINDINGS: CHEST: LUNGS: There are bilateral scattered linear markings, with a bilateral upper lung field predominance. The appearance is relatively stable from 04/24/2020. There are a few bilateral scattered benign, calcified granulomas. Previously seen bilateral groundglass opacities show interim resolution or near-resolution. No noncalcified nodule, mass, infiltrate or groundglass opacity is seen. There is generalized small airway thickening. The central airways appear patent. MEDIASTINUM: The thyroid is unremarkable. There are numerous calcified mediastinal and bilateral hilar lymph nodes. No pathologically enlarged noncalcified lymph node is seen. There is no thoracic aortic aneurysm or dissection. PERICARDIUM/PLEURA: There is no significant effusion. No pleural mass or thickening. CHEST WALL/AXILLA: There is a right internal jugular Port-A-Cath device. No axillary lymphadenopathy is seen. ABDOMEN/PELVIS: LIVER, GALLBLADDER, BILIARY TREE: The liver is normal in size, shape, and generally diminished in attenuation. No focal hepatic lesion or biliary ductal dilatation is present. The gallbladder is unremarkable with no evidence of radiopaque gallstones, gallbladder wall thickening, or pericholecystic inflammatory changes. PANCREAS: Unremarkable. SPLEEN: Unremarkable. ADRENAL GLANDS: Unremarkable. KIDNEYS AND URETERS: The kidneys are normal in size, shape, and attenuation. No hydronephrosis or hydroureter or calculi seen. No perinephric stranding. BLADDER: Decompressed and otherwise unremarkable. GASTROINTESTINAL TRACT: There has been a prior right hemicolectomy. There is a patent appearing right upper quadrant ileostomy. There is mild diverticulosis, without acute diverticulitis. No bowel obstruction, free intraperitoneal air or abscess is seen. There is no focal bowel wall thickening. ABDOMINAL WALL: . There is a small amount of parastomal fat noted. There are small fat-containing umbilical and left inguinal hernias. LYMPH NODES: There are multiple shotty para-aortic lymph nodes. In the aortocaval region (3:40), there is a 1.5 x 1.2 cm lymph node. In the left internal iliac chain region (3:46), there is a 1.4 x 1.1 cm lymph node. In the left external iliac chain region, there is a 1.9 x 1.5 cm lymph node, showing a coarse central calcification. In the right external iliac chain (3:72), a 2.3 x 1.4 cm lymph node is seen. There are multiple shotty, nonpathologic enlarged bilateral inguinal lymph nodes, the largest on the right showing a short axis diameter of 6 mm (3:90). Overall, these lymph nodes are unchanged from most recent prior. VASCULAR: Unremarkable. PELVIC VISCERA: The prostate and seminal vesicles are unremarkable. OSSEOUS STRUCTURES: There is multi-level marked thoracolumbar spondylosis. At L5-S1, there is degenerative disc disease, with vacuum phenomenon. No acute or aggressive osseous abnormality is seen. CT/CT abdomen pelvis w con IMPRESSION: 1. Bilateral groundglass opacities are largely resolved in the interim. There are persistent bilateral upper lung field linear markings, similar to prior CT examinations including 04/06/2020. Again, these likely represent pleural and parenchymal scarring. 2. No new nodule, mass, infiltrate or groundglass opacity is seen. 3. There are again multiple benign, calcified mediastinal and bilateral hilar lymph nodes. No pleural effusion is seen. 4. There has been a prior right hemicolectomy, with patent right upper quadrant ileostomy. 5. There is no abdominopelvic mass or free fluid. There are stable enlarged abdominal and pelvic lymph nodes, as detailed, for which continued attention on imaging follow-up is recommended. 6. There is hepatic steatosis. 7. There are multi-level marked degenerative changes of the thoracolumbar spine. No aggressive osseous lesion is seen.
[2021-11-22] MEDS: iohexoL 350 MG/ML 100 ML INFUS..BTL IV (09:59)
[2021-11-22] MEDS: Barium Sulfate Oral (Vanilla) 450 ML ORAL.SUSP 900 ML PO (10:00)
== END 2021-11-22 06:52 | disposition home or self-care (01) ==
LOC: HO.CT 06:51
PROVIDERS: Visit Provider Internal Medicine
DX: C18.9 Malignant neoplasm of colon, unspecified (principal)
CPT/HCPCS: 71260; 74177; Q9967

== ENCOUNTER 2022-01-15 09:59 | Outpatient (REF) | payer OTHER, SELFPAY ==
--- NOTE | ~2022-01-15 | FL_ITS ---
EXAMINATION: XR FLUOROSCOPY CLINICAL INFORMATION: No blood return from the Port-A-Cath. COMPARISON: None TECHNIQUE: Following explaining fluoroscopy-guided right Port-A-Cath contrast injection and imaging procedure, benefits and risk, a written consent was obtained. Patient was placed under fluoroscopy table supine and one of the access ports was cleaned without alcohol wipes. The line was flushed with saline. Subsequently 10 mL of nonionic contrast Omnipaque 300 was injected under fluoroscopy and continuous imaging was obtained. Postprocedure, the syringe was withdrawn. Patient tolerated the procedure extremely well. FINDINGS: There is normal flushing of the Port-A-Cath with no blood could be withdrawn. On subsequent injection, access Port-A-Cath under fluoroscopy there is a widely patent catheter. There is a small filling defect at the tip of the catheter from fibrin sheath. The contrast travels around the fibrin sheath into the SVC with no clear-cut obstruction. The SVC is patent. FLUOROSCOPY TIME: 0.3 minutes DOSE AREA PRODUCT: 2.748 uGy-m2 (microgray-meter squared) FL/FL fluoroscopy <1hr IMPRESSION: Patent Port-A-Cath with a small fibrin sheath at the tip of the catheter. There is normal antegrade flow of contrast and saline. The Port-A-Cath itself is of normal caliber and intact. Results were called to Dr. Elaine immediately after the exam was finished
== END 2022-01-15 10:00 | disposition home or self-care (01) ==
LOC: HO.XRAY 09:59
PROVIDERS: PCP Internal Medicine; Visit Provider Internal Medicine Medical Oncology
DX: I82.90 Acute embolism and thrombosis of unspecified vein (principal)
CPT/HCPCS: 76000; Q9967

== ENCOUNTER → 2022-01-18 13:26 | Outpatient (BNVA) | payer OTHER, SELFPAY | PROVIDERS: PCP Internal Medicine; Visit Provider Surgery | DX: Z85.038 Personal history of other malignant neoplasm of large intestine (principal) | CPT/HCPCS: 99212 ==

== ENCOUNTER 2022-03-07 07:21 | Outpatient (REF) | payer OTHER, SELFPAY ==
--- NOTE | ~2022-03-07 | CT_ITS ---
EXAMINATION: CT CHEST WITH CONTRAST CLINICAL INFORMATION: Colon cancer. Check response to chemotherapy. COMPARISON: Previous chest CT November 2021 TECHNIQUE: Multidetector volumetric CT imaging of the chest was obtained after the administration of 85 mL of Omnipaque 350 intravenous contrast without immediate adverse reactions. Axial MIP volume rendering provided. Sagittal and coronal reformatted images were obtained. This CT examination was performed using dose optimization techniques as appropriate, variously including the following: *Automated exposure control *Adjustment of mA and/or kV according to patient size (this includes techniques or standardized protocols for targeted exams where dose is matched to indication/reason for exam; i.e. extremities or head) *Use of iterative reconstruction technique DLP: 222 mGy-cm FINDINGS: BLEACH TESTER: LUNGS: There are increased interstitial markings with interlobular septal thickening, increased or pleural reticulation and traction bronchiolectasis. This is seen in the upper lungs This is similar to previous exams. There are some scattered areas of parenchymal densities that appear stable, largest measuring 6 mm adjacent to the major fissure axial image 196 series 7. There is evidence of mild paraseptal emphysema. There is a 3 mm heterogeneous or semisolid left lower lobe nodule axial image 295 series 7 that is stable. No new pulmonary nodule. MEDIASTINUM: There is diffuse mediastinal and bilateral hilar lymphadenopathy. Some lymph nodes are partially calcified. This appears volar to previous exam. Largest lymph node is a right paratracheal lymph node measuring 1.4 x 1.5 cm. No pericardial effusion. Normal heart size. Normal caliber thoracic aorta. Right jugular port with tip projecting over the SVC. CORONARY ARTERY CALCIFICATION: None visualized on this study. PLEURA: There is no pleural effusion. No pleural mass or thickening. AXILLA: No lymphadenopathy. UPPER ABDOMEN: Fatty liver OSSEOUS STRUCTURES: Degenerative changes of the spine. CT/CT chest w IV con IMPRESSION: Stable partially calcified mediastinal and bilateral hilar lymph nodes. Stable interstitial disease with upper lung predominance. Fleischner guidelines were followed.
--- NOTE | ~2022-03-07 | CT_ITS ---
EXAMINATION: CT ABDOMEN AND PELVIS WITH CONTRAST CLINICAL INFORMATION: Colon cancer. Check response to chemotherapy. COMPARISON: Previous CT of the abdomen and pelvis most recent November 2021 TECHNIQUE: Multidetector volumetric images were obtained from the superior aspect of the liver through the pubic symphysis following administration 85 mL of Omnipaque 350 intravenous contrast. Sagittal and coronal reformatted images were obtained on the technologist's workstation. Oral contrast: Yes This CT examination was performed using dose optimization techniques as appropriate, variously including the following: *Automated exposure control *Adjustment of mA and/or kV according to patient size (this includes techniques or standardized protocols for targeted exams where dose is matched to indication/reason for exam; i.e. extremities or head) *Use of iterative reconstruction technique DLP: 580 mGy-cm FINDINGS: LIVER, GALLBLADDER, AND BILIARY TREE: The liver is low in attenuation suggestive of fatty infiltration. No focal liver lesion. The gallbladder is unremarkable with no evidence of radiopaque gallstones, gallbladder wall thickening, or obvious pericholecystic inflammatory changes. No biliary duct dilatation. PANCREAS: Unremarkable. SPLEEN: Unremarkable. ADRENAL GLANDS: Unremarkable. KIDNEYS AND URETERS: Small cyst in the upper pole the left kidney unchanged. The kidneys are otherwise normal. No imaging follow-up. BLADDER: Not optimally distended. GASTROINTESTINAL TRACT: Postop change from right colectomy. Mild diverticulosis of the colon. Right lower quadrant ileostomy. ABDOMINAL WALL: Small parastomal hernia containing fat. Small midline ventral or incisional hernias containing fat. Larger supraumbilical hernia containing fat and umbilical hernia containing fat and small bowel. Small left inguinal hernia containing fat. LYMPH NODES: Stable retroperitoneal lymphadenopathy. Largest abdominal retroperitoneal lymph node measures 1.2 x 1.5 cm in the aortocaval region axial image 41 series 3. Largest pelvic retroperitoneal lymph nodes are a left partially calcified iliac bifurcation lymph node measuring 1.2 x 1.7 cm axial image 59 series 3 and right external iliac lymph node measuring 1.4-2.4 cm axial image 73 series 3. No new adenopathy. No ascites. No evidence of peritoneal disease. VASCULAR: Unremarkable. PELVIC VISCERA: Unremarkable. OSSEOUS STRUCTURES: Degenerative changes of the spine and hip joints. CT/CT abdomen pelvis w IV con IMPRESSION: Stable postsurgical changes. Stable retroperitoneal lymphadenopathy in the abdomen and pelvis. Fatty liver. Fleischner guidelines were followed.
[2022-03-07] MEDS: Barium Sulfate Oral (Berry) 450 ML ORAL.SUSP 900 ML PO (10:25)
[2022-03-07] MEDS: iohexoL 350 MG/ML 100 ML INFUS..BTL 85 ML IV (10:26)
== END 2022-03-07 07:22 | disposition home or self-care (01) ==
LOC: HO.CT 07:21
PROVIDERS: PCP Internal Medicine; Visit Provider Internal Medicine
DX: C18.9 Malignant neoplasm of colon, unspecified (principal)
CPT/HCPCS: 71260; 74177; Q9967

== ENCOUNTER → 2022-07-11 10:01 | Outpatient (BNVA) | payer OTHER, SELFPAY | PROVIDERS: PCP Internal Medicine; Visit Provider Surgery | DX: Z85.038 Personal history of other malignant neoplasm of large intestine (principal); Z93.2 Ileostomy status | CPT/HCPCS: 99212 ==

== ENCOUNTER 2022-07-12 09:54 | Outpatient (REF) | payer OTHER, SELFPAY ==
--- NOTE | ~2022-07-12 | CT_ITS ---
EXAMINATION: CT ABDOMEN AND PELVIS WITH CONTRAST CLINICAL INFORMATION: Colon cancer, LAD, response to radiation treatment. COMPARISON: CT abdomen and pelvis 03/07/2022 TECHNIQUE: Multidetector volumetric images were obtained from the superior aspect of the liver through the pubic symphysis following administration 85 mL of Omnipaque 350 intravenous contrast. Sagittal and coronal reformatted images were obtained on the technologist's workstation. Oral contrast: No This CT examination was performed using dose optimization techniques as appropriate, variously including the following: *Automated exposure control *Adjustment of mA and/or kV according to patient size (this includes techniques or standardized protocols for targeted exams where dose is matched to indication/reason for exam; i.e. extremities or head) *Use of iterative reconstruction technique DLP: 644 mGy-cm FINDINGS: LUNG BASES: The visualized lung bases are unremarkable. LIVER, GALLBLADDER, AND BILIARY TREE: The liver is normal in size, shape, and attenuation. No focal hepatic lesion or biliary ductal dilatation is present. The gallbladder is unremarkable with no evidence of radiopaque gallstones, gallbladder wall thickening, or obvious pericholecystic inflammatory changes. PANCREAS: Unremarkable. SPLEEN: Unremarkable. ADRENAL GLANDS: Unremarkable. KIDNEYS AND URETERS: The kidneys are normal in size, shape, and attenuation. No hydronephrosis, hydroureter, or calculi seen. No perinephric stranding. There is a 1.33 cm partially exophytic cyst upper pole cortex left kidney. BLADDER: The bladder is unremarkable. GASTROINTESTINAL TRACT: There is a right colectomy with normal-appearing rest of the colon. The small bowel loops are normal. There is a right lower quadrant ileostomy. The small bowel loops are normal caliber. Appendix is not visualized. No inflammatory process seen in the abdomen. ABDOMINAL WALL: There is a right lower quadrant ileostomy with parastomal hernia containing fat. Also visualized is a supraumbilical hernia containing fat similar to previous study. LYMPH NODES: A few scattered retroperitoneal lymph nodes are seen. Largest aortocaval lymph node measures 1.5 cm on image 39/3, unchanged. The other lymph nodes also stable and unchanged. There are partially calcified left common iliac and a few scattered right external iliac lymph nodes which are grossly stable. VASCULAR: Unremarkable. PELVIC VISCERA: The prostate gland is normal size. No abnormal pelvic or inguinal lymph node seen. OSSEOUS STRUCTURES: There is mild ventral spondylosis. No aggressive lytic or sclerotic process seen. Mild degenerative changes L5-S1 disc level is noted. CT/CT abdomen pelvis w IV con IMPRESSION: 1. Right colectomy with right lower quadrant ileostomy. There is a parastomal hernia containing fat. 2. There is a supraumbilical hernia containing fat as well. 3. Stable retroperitoneal, right inguinal and left common iliac lymphadenopathy. Fleischner guidelines were followed.
[2022-07-12] MEDS: iohexoL 350 MG/ML 100 ML INFUS..BTL 85 ML IV (10:41)
== END 2022-07-12 09:55 | disposition home or self-care (01) ==
LOC: HO.CT 09:54
PROVIDERS: PCP Internal Medicine; Visit Provider Internal Medicine
DX: C18.9 Malignant neoplasm of colon, unspecified (principal)
CPT/HCPCS: 74177; Q9967

== ENCOUNTER 2022-11-07 06:50 | Outpatient (REF) | payer OTHER, SELFPAY | END 2022-11-07 06:51 | disposition home or self-care (01) | LOC: HO.CT 06:50 | PROVIDERS: PCP Internal Medicine; Visit Provider Internal Medicine | DX: C18.9 Malignant neoplasm of colon, unspecified (principal) | CPT/HCPCS: 71260; 74177; Q9967 ==

== ENCOUNTER 2023-01-08 12:49 | Outpatient (AMB) | payer OTHER, SELFPAY ==
[2023-01-08 12:54] VITALS: BP 144/98; PULSE 92; O2SAT 97; BMI 34.3
--- NOTE | 2023-01-08 12:54 | A.OFFVIS_ITS ---
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 Intake Note: Pt presents in office as a NPV for worsening neuropathy Security Incident Response Engineer Required: No Allergies omeprazole Allergy (Verified 01/08/23 12:57) Hives Medication List - Last Reconciled 01/08/23 by Corinne Nguyen MD acetaminophen 650 mg PO BID allopurinol 300 mg PO DAILY duloxetine 60 mg PO DAILY PRN gabapentin 600 mg PO TID nystatin 5 mL PO TID ondansetron 1 tab PO Q8H ostomy supplies (Adhesive Remover Wipes) use around stoma as needed ostomy supplies Oostomy powder - apply to irritated skin around ostomy site ostomy supplies (SenSura Flex Ostomy Pouch) As directed ring (ostomy supply) As directed tramadol 50 mg PO BID PRN HPI HPI Comments History of Present Illness Details 57y/o male with h/o colon ca on chemo comes for evaluation of neuropath y. He was diagnosed with invasive adenocarcinoma in distal right ascending colon in Feb 2020 . He had resection and started on chemo in May 2020 ( FOLFOX) . 6 months after he started chemo he started having numbness in her finger. tips and toes. He also tingling, burning sensation in his distal feet and fingers. He was started on gabapentin , tramadol for pain and numbness. The whole plantar surface and dorsal part are numb and has tingling. The symptoms are worse at night and wakes up with sharp pain in her feet. He also has difficulty staying asleep, excessive daytime fatigue and sleepiness. he has loud snoring, wakes up with dry throat. [facility] Medical History (Updated 01/08/23 @ 13:30 by Corinne Nguyen MD) Bilateral pulmonary embolism Colon adenocarcinoma Colon cancer Current smoker GERD (gastroesophageal reflux disease) Gout History of colon cancer History of colon polyps HTN (hypertension) Hx of gout Hx of sarcoidosis Hypersomnia Ileocolic anastomotic leak Ileostomy in place Increased BMI Indigestion Peripheral neuropathy due to chemotherapy Pulmonary embolism Snoring Surgical History H/O inguinal hernia repair Hx of colonoscopy Hx of right inguinal hernia repair S/P right colectomy Family History Mother No problems noted. Father No problems noted. Social History Household Members: None Housing: Apartment Are you a primary laboratory animal care veterinarian to a significant other at home: No Do you presently have visiting nurse or other home services: No Alcohol intake: current Alcohol intake frequency: a few times a week Alcohol type: beer Patient Tobacco Use Status: Current everyday Tobacco user Tobacco use type: Cigarette Cigarette Packs Per Day: 0 Years Smoked: 10 e-Cigarette/Vaping Use: Currently Using Second Hand Smoke Exposure: No Use of substances other than those prescribed or required for medical reasons: No Substance Use Type: Marijuana Advance Directives Date on File: 02/29/20 service: No Current occupational status: employed Review of Systems Const Denies chills and Denies fever(s) Card Denies chest pain, Reports dyspnea and Reports dyspnea on exertion Resp Reports dyspnea and Reports dyspnea on exertion GI Denies abdominal pain Denies dysuria Physical Exam Vital Signs: Last Vital Signs Pulse 92 01/08/23 12:54 BP 144/98 H 01/08/23 12:54 Pulse Ox 97 01/08/23 12:54 Oxygen Delivery Method Room Air 01/08/23 12:54 BMI result Body Mass Index 34.3 Const Orientation/consciousness: patient oriented x3 Eyes Pupils: Equal, round and reactive pupils present Neuro Other: numbness and hyperesthesia in arturo plantar surfaces and distal half of dorsum of arturo feet Mallampatti grade 4 General: patient oriented x3, tone normal, moves all extremities and no focal motor deficits Cranial nerves: Yes Equal, round and reactive pupils present, Yes Bilaterally intact EOM present, Yes Nystagmus not present, Yes Normal facial strength present, Yes Midline tongue present and Yes Symmetric palate elevation present Cognition (Neuro): normal cognition Gait exam (Neuro): Normal gait present Motor exam (neuro): 5/5 motor strength present throughout and Normal motor muscle tone present throughout Deep tendon reflexes (DTR's): Right triceps reflex intensity grade: 1+, Left triceps reflex intensity grade: 1+, Rt Biceps (C5, C6): 1+, Left biceps reflex intensity grade: 1+, Right brachioradialis reflex intensity grade: 0, Left brachioradialis reflex intensity grade: 0, Right patellar reflex intensity grade: 0, Left patellar reflex intensity grade: 0, Right ankle reflex intensity grade: 0 and Left ankle reflex intensity grade: 0 Assessment & Plan Assessment & Plan (1) Peripheral neuropathy due to chemotherapy: Code(s): G62.0 - Drug-induced polyneuropathy; T45.1X5A - Adverse effect of antineoplastic and immunosuppressive drugs, initial encounter (2) Snoring: Code(s): R06.83 - Snoring (3) Hypersomnia: Code(s): G47.10 - Hypersomnia, unspecified Plan I will check his Vit B 12, B 6 , TSH , ESR to r/o other causes of neuropathy EMG NCS LE Home sleep study to r/o sleep apnea gabapentin 600mg tid I will retrial cymbalta Alpha lipoic acid 600mg qd B complex qam Orders: Orders TSH reflex Free T4 Today G62.0 - Drug-induced polyneuropathy, T45.1X5A - Adverse effect of antineoplastic and immunosuppressive drugs, initial encounter Vitamin B12 and Folate Today G62.0 - Drug-induced polyneuropathy, T45.1X5A - Adverse effect of antineoplastic and immunosuppressive drugs, initial encounter Vitamin D 25-OH (D2 and D3) Today G62.0 - Drug-induced polyneuropathy, T45.1X5A - Adverse effect of antineoplastic and immunosuppressive drugs, initial encounter Erythrocyte Sedimentation Rate Today G62.0 - Drug-induced polyneuropathy, T45.1X5A - Adverse effect of antineoplastic and immunosuppressive drugs, initial encounter Ferritin Today G62.0 - Drug-induced polyneuropathy, T45.1X5A - Adverse effect of antineoplastic and immunosuppressive drugs, initial encounter Vitamin B6 Today G62.0 - Drug-induced polyneuropathy, T45.1X5A - Adverse effect of antineoplastic and immunosuppressive drugs, initial encounter Vitamin B3 (Niacin) Today G62.0 - Drug-induced polyneuropathy, T45.1X5A - Adverse effect of antineoplastic and immunosuppressive drugs, initial encounter RT home sleep study Today G47.10 - Hypersomnia, unspecified, R06.83 - Snoring NE electromyogram (EMG) Today G62.0 - Drug-induced polyneuropathy, T45.1X5A - Adverse effect of antineoplastic and immunosuppressive drugs, initial encounter Medications: New duloxetine 60 mg PO DAILY 30 caps 6RF alpha lipoic acid 600 mg PO DAILY 30 caps 6RF Coding Level of Care Code New Pt Level 4 ([id number]) Diagnoses Peripheral neuropathy due to chemotherapy G62.0; T45.1X5A Snoring R06.83 Hypersomnia G47.10
== END 2023-01-08 13:40 | disposition home or self-care (01) ==
PROVIDERS: Visit Provider Psychiatry & Neurology Neurology
DX: G62.0 Drug-induced polyneuropathy (principal); T45.1X5A Adverse effect of antineoplastic and immunosuppressive drugs, initial encounter; R06.83 Snoring; G47.10 Hypersomnia, unspecified
CPT/HCPCS: 99204

== ENCOUNTER → 2023-01-08 12:49 | Outpatient (BNVA) | payer OTHER, SELFPAY | PROVIDERS: Visit Provider Psychiatry & Neurology Neurology | DX: G62.0 Drug-induced polyneuropathy (principal); T45.1X5A Adverse effect of antineoplastic and immunosuppressive drugs, initial encounter; R06.83 Snoring; G47.10 Hypersomnia, unspecified | CPT/HCPCS: 99202 ==

== ENCOUNTER 2023-02-04 10:42 | Outpatient (AMB) | payer OTHER, SELFPAY ==
--- NOTE | 2023-02-04 10:44 | MHC.OFFVIS ---
Intake Vital Signs 02/04/23 10:50 Height 5 ft 9 in Weight 231 lb BMI 34.1 Intake Visit Reasons: 6 month follow-up cplostomy Intake Note: This patient presents for an assessment for a six month follow-up colostomy. Patient c/o; reports no issues at this time, per patient has not been taking Eliquis. Vice President Lending Required: No Accompanied by: Self / Same As Patient Allergies omeprazole Allergy (Verified 02/04/23 10:53) Hives HPI 6 month follow-up cplostomy HPI Details He is here for follow-up ileostomy. He had undergone right colon resection in 2019 for a T3 N1 adenocarcinoma. He 0 ever had PET scan after that showing lymph node metastasis in the maxim hepatis. He was started on elective chemotherapy in May,. He is currently on second-line chemotherapy with FOLFIRI and Avastin. His 5 FU has been on hold because of severe neuropathy. He continues to have severe tingling and stabbing pain on all his extremities from his neuropathy He otherwise says that his stoma has been working well. He has had no problems with this. He has good oral intake. He remains active although has not been back to work. BID 05/08/21 01/08/23 History nystatin 100,000 u nit/mL oral 5 ml PO TID 07/09/22 01/08/23 History suspension ondansetron 8 mg d isintegrating 1 tab PO Q8H 07/09/22 01/08/23 History tablet Allergies Allergy/AdvReac Type Severity Reaction Status Date / Time omeprazole Allergy Hives Verified 01/08/23 12:57 Exam Vital signs: Temp 97.2 F 01/28/23 08:53 Pulse 90 01/28/23 08:53 Resp 20 01/28/23 08:53 BP 124/77 01/28/23 08:53 Pulse Ox 96 01/28/23 08:53 O2 Del Method Room Air 01/28/23 08:53 Intake & Output 01/27/23 01/28/23 01/28/23 18:59 06:59 18:59 Intake Total 200 / 200 Balance 200 / 200 Intake: Intake, IV Amoun t 200 / 200 Bevacizumab 40 0 mg Bevacizumab 100 / 100 125 mg In 0.9 % Sodium Chloride 79 ml @ 200 ml s/hr IV ONCE [facility] Rx#:[id number] Ondansetron HC L/NS 16 mg In 50 50 / 50 ml @ 200 mls/h r IV ONCE [facility] Rx# :[id number] dexAMETHasone sod phosphate/NS 50 / 50 12 mg In 50 ml @ 100 mls/hr IV ONCE [facility] Rx#:[id number] Other: Weight 107.8 kg Weight i n Grams [id number] Weight 107.8 kg BMI result Body Mass Index 35.1 PFSH Medical History Hypersomnia Snoring 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 Father No problems noted. Social History Household Members: None Housing: Apartment Are you a primary director of health care marketing to a significant other at home: No Do you presently have visiting nurse or other home services: No Alcohol intake: current Alcohol intake frequency: a few times a week Alcohol type: beer Patient Tobacco Use Status: Current everyday Tobacco user Tobacco use type: Cigarette Cigarette Packs Per Day: 0 Years Smoked: 10 e-Cigarette/Vaping Use: Currently Using Second Hand Smoke Exposure: No Substance Use Type: Marijuana Advance Directives Date on File: 02/29/20 service: No Current occupational status: employed Review of Systems Const Denies chills and Denies fever(s) Card Denies chest pain, Denies dyspnea and Denies dyspnea on exertion Resp Denies cough, Denies dyspnea and Denies dyspnea on exertion GI Denies hematochezia and Denies change in bowel habits Denies hematuria and Denies difficulty urinating Musc Denies back pain and Denies limited range of motion Neuro Details: Has neuropathy on all extremities Denies focal weakness and Denies convulsions Psych Denies depression and Denies mood swings Physical Exam Vital Signs: BMI result Body Mass Index 34.1 Const General: comfortable and no acute distress Resp Effort & Inspection: normal respiratory effort Cardio Rate: regular rate GI Other: Ileostomy on the right side working well Palpation (GI): Soft to palpation, not firm, nontender and no guarding Assessment & Plan Assessment & Plan (1) Ileostomy in place: Code(s): Z93.2 - Ileostomy status Plan: He has ileostomy continues to work well. He is still has been undergoing palliative chemotherapy because of metastatic disease to his intra-abdominal lymph nodes especially surrounding the liver. He has had no problems with this ileostomy function. I explained to him that we will hold off on reversing this for now because of his active disease. He is to continue to have chemotherapy per Marcy and is being planned for repeat imaging for response to this next month. I will see him again in the office in about 6 months therefore. I have encouraged him to remain active physically. He says that he is actually interested in doing part-time work maybe once or twice a week and I have encouraged him to do so. (2) History of colon cancer: Code(s): Z85.038 - Personal history of other malignant neoplasm of large intestine Coding Level of Care Code Est Pt Level 3 (99730) Diagnoses Ileostomy in place Z93.2 History of colon cancer Z85.038
[2023-02-04 10:50] VITALS: BMI 34.1
== END 2023-02-04 11:13 | disposition home or self-care (01) ==
PROVIDERS: PCP Internal Medicine; Visit Provider Surgery
DX: Z93.2 Ileostomy status (principal); Z85.038 Personal history of other malignant neoplasm of large intestine
CPT/HCPCS: 99213

== ENCOUNTER → 2023-02-04 10:42 | Outpatient (BNVA) | payer OTHER, SELFPAY | PROVIDERS: PCP Internal Medicine; Visit Provider Surgery | DX: C18.9 Malignant neoplasm of colon, unspecified (principal); G62.0 Drug-induced polyneuropathy; T45.1X5A Adverse effect of antineoplastic and immunosuppressive drugs, initial encounter; Z93.3 Colostomy status; Z93.2 Ileostomy status | CPT/HCPCS: 99212 ==

== ENCOUNTER 2023-02-07 11:59 | Outpatient (REF) | payer OTHER, SELFPAY | END 2023-02-07 12:00 | disposition home or self-care (01) | LOC: HO.LAB 11:59 | PROVIDERS: PCP Internal Medicine; Visit Provider Psychiatry & Neurology Neurology | DX: G62.0 Drug-induced polyneuropathy (principal); T45.1X5A Adverse effect of antineoplastic and immunosuppressive drugs, initial encounter; C18.9 Malignant neoplasm of colon, unspecified; R53.83 Other fatigue | CPT/HCPCS: 36415; 80053; 82306; 82607; 82728; 82746; 84207; 84443; 84591; 85652 ==

== ENCOUNTER 2023-02-15 13:30 | Outpatient (REF) | payer OTHER, SELFPAY ==
--- NOTE | 2023-02-15 13:33 | EMG_ITS ---
Chief complaint: History of colon cancer, been on chemotherapy for past 2 years. Sensory symptoms started 6 months after start of chemotherapy. Starting on the toes, going up to affect both feet, now affecting both hands. Constant numbness, hypersensitivity, burning. Reason for referral: Evaluate for neuropathy Referred by: Dr. Nguyen Procedure done: Bilateral lower extremity NCS/EMG Precautions and/or limitations: Has colostomy The limb temperature was monitored continuously and remained between 32-36 degrees C during the performance of the NCS. Nerve Conduction Studies Anti Sensory Summary Table ?Stim Site NR Onset (ms) Norm Onset (ms) Peak (ms) Norm Peak (ms) O-P Amp (?V) Norm O-P Amp Site1 Site2 Delta-0 (ms) Dist (cm) Nav (m/s) Norm Nav (m/s) Right Median Anti Sensory (2nd Digit) Wrist ? 1.0 3.0 <3.6 12.2 >10 Wrist 2nd Digit 1.0 14.0 140 Right Radial Anti Sensory (Thumb) Forearm ? 1.7 2.2 <3.1 5.4 Forearm Thumb 1.7 0.0 Left Sural Anti Sensory Run #1 (Lat Mall) Calf NR <4.0 >5.0 Calf Lat Mall 14.0 Left Sural Anti Sensory Run #2 (Lat Mall) Calf NR <4.0 >5.0 Calf Lat Mall 14.0 Right Sural Anti Sensory Run #1 (Lat Mall) Calf ? 3.3 4.0 <4.0 14.5 >5.0 Calf Lat Mall 3.3 14.0 42 Right Sural Anti Sensory Run #2 (Lat Mall) Calf ? 2.9 3.7 <4.0 12.9 >5.0 Calf Lat Mall 2.9 14.0 48 Motor Summary Table ?Stim Site NR Onset (ms) Norm Onset (ms) O-P Amp (mV) Norm O-P Amp iAmp (mV) Amp (1st) (%) Site1 Site2 Delta-0 (ms) Dist (cm) Nav (m/s) Norm Nav (m/s) Right Median Motor (Abd Poll Brev) Wrist ? 2.8 <3.9 7.9 >4.5 9.8 100.0 Elbow Wrist 4.1 24.0 59 >45 Elbow ? 6.9 8.0 9.8 101.3 Left Peroneal Motor (Ext Dig Brev) Ankle ? 4.2 <4.0 2.3 >2.5 2.4 100.0 Ankle Ext Dig Brev 4.2 0.0 B Fib ? 11.8 1.9 2.1 82.6 B Fib Ankle 7.6 34.0 45 >40 Poplt ? 12.3 2.0 2.2 87.0 Poplt B Fib 0.5 4.0 80 >40 Right Peroneal Motor (Ext Dig Brev) Ankle ? 3.9 <4.0 4.3 >2.5 4.9 100.0 Ankle Ext Dig Brev 3.9 0.0 B Fib ? 10.9 3.6 4.4 83.7 B Fib Ankle 7.0 30.5 44 >40 Poplt ? 11.8 3.5 4.1 81.4 Poplt B Fib 0.9 6.0 67 >40 Left Tibial Motor (Abd Alvarez Brev) Ankle ? 4.0 <5 5.9 >2.5 7.8 100.0 Ankle Abd Alvarez Brev 4.0 0.0 Knee ? 12.1 3.2 4.4 54.2 Knee Ankle 8.1 37.0 46 >40 Right Tibial Motor (Abd Alvarez Brev) Ankle ? 3.5 <5 2.7 >2.5 5.1 100.0 Ankle Abd Alvarez Brev 3.5 0.0 Knee ? 12.1 2.7 5.5 100.0 Knee Ankle 8.6 38.0 44 >40 EMG ?Side Muscle Nerve Root Ins Act Fibs Psw Amp Dur Poly Recrt Int Pat Comment Right AbdHallucis MedPlantar S1-2 Nml Nml Nml Nml Nml 0 Nml Complete Right AntTibialis Dp Br Peron L4-5 Nml Nml Nml Nml Nml 0 Nml Complete Right PostTibialis Tibial L5, S1 Nml Nml Nml Nml Nml 0 Nml Complete Right MedGastroc Tibial S1-2 Nml Nml Nml Nml Nml 0 Nml Complete Right VastusMed Femoral L2-4 Nml Nml Nml Nml Nml 0 Nml Complete Left AbdHallucis MedPlantar S1-2 Incr 1+ 1+ Nml Nml 0 Nml Complete Left AntTibialis Dp Br Peron L4-5 Nml Nml Nml Nml Nml 0 Nml Complete Left PostTibialis Tibial L5, S1 Nml Nml Nml Nml Nml 0 Nml Complete Left MedGastroc Tibial S1-2 Nml Nml Nml Nml Nml 0 Nml Complete Left VastusMed Femoral L2-4 Nml Nml Nml Nml Nml 0 Nml Complete FINDINGS: Left peroneal nerve showed prolonged distal latency, small amplitude and normal conduction velocity. Left sural nerve showed absent response. All other nerves tested were within normal. Concentric needle EMG was performed in selected muscles of the bilateral lower extremity. Study revealed signs of electric abnormalities as shown in the table below. Left AH muscle showed increased insertional activity, PSWs and fibrillations. IMPRESSION: 1. This is an abnormal study. 2. There is electrodiagnostic evidence for distal asymmetric sensorimotor peripheral neuropathy. 3. There is no electrodiagnostic evidence for right median neuropathy, lumbosacral plexopathy, or lumbar radiculopathy. CLINICAL COMMENT: His symptoms appear to have developed in a stocking-glove pattern. And it is not uncommon for small fiber peripheral neuorpathies such as chemotherapy-induced neuropathy to appear normal or asymmetric on NCS/EMG. Thank you for your kind referral. Alexandria Steinberg MD, JOVAN Board Certified, [place] Board of Physical [employer] and Rehabilitation (ABPMR) Board Certified, [place] Board of Electrodiagnostic Medicine (ABEM) CODIN [id number] x 2 MTDD
== END 2023-02-15 13:31 | disposition home or self-care (01) ==
LOC: HO.NEURO 13:30
PROVIDERS: PCP Internal Medicine; Visit Provider Psychiatry & Neurology Neurology
DX: G62.0 Drug-induced polyneuropathy (principal); T45.1X5A Adverse effect of antineoplastic and immunosuppressive drugs, initial encounter
CPT/HCPCS: 95886; 95911

== ENCOUNTER → 2023-02-15 13:33 | Outpatient (BNV) | payer OTHER, SELFPAY | PROVIDERS: PCP Internal Medicine; Visit Provider Physical Medicine & Rehabilitation | DX: G62.89 Other specified polyneuropathies (principal) | CPT/HCPCS: 95886; 95911 ==

== ENCOUNTER 2023-04-18 08:54 | Outpatient (REF) | payer OTHER, SELFPAY ==
--- NOTE | ~2023-04-18 | CT_ITS ---
EXAMINATION: CT ABDOMEN AND PELVIS WITH CONTRAST CLINICAL INFORMATION: Restaging colon cancer. COMPARISON: Prior examinations, most recently 11/07/2022. TECHNIQUE: Multidetector volumetric images were obtained from the superior aspect of the liver through the pubic symphysis following administration 85 mL of Omnipaque 350 intravenous contrast. Sagittal and coronal reformatted images were obtained on the technologist's workstation. Oral contrast: No This CT examination was performed using dose optimization techniques as appropriate, variously including the following: *Automated exposure control *Adjustment of mA and/or kV according to patient size (this includes techniques or standardized protocols for targeted exams where dose is matched to indication/reason for exam; i.e. extremities or head) *Use of iterative reconstruction technique DLP: 582 mGy-cm (chest, abdomen and pelvis) FINDINGS: LIVER, GALLBLADDER, AND BILIARY TREE: The liver is normal in size, shape and mildly diminished in attenuation. No focal hepatic lesion or biliary ductal dilatation is present. The gallbladder is unremarkable with no evidence of radiopaque gallstones, gallbladder wall thickening, or obvious pericholecystic inflammatory changes. PANCREAS: Unremarkable. SPLEEN: There is splenomegaly, with a longitudinal span in the axial plane of 16.3 cm. No focal finding. ADRENAL GLANDS: Unremarkable. KIDNEYS AND URETERS: The kidneys are normal in size, shape, and attenuation. No hydronephrosis, hydroureter, or calculi seen. No perinephric stranding. BLADDER: Unremarkable. GASTROINTESTINAL TRACT: There has been a prior right hemicolectomy and right upper quadrant ileostomy. The ileostomy appears patent, with no obstruction, free intraperitoneal air or abscess noted. There is no focal bowel wall thickening. There is minimal diverticulosis, without acute diverticulitis. ABDOMINAL WALL: Within the right upper quadrant, there is a parastomal hernia defect with neck measuring approximately 2.0 cm (3:47 and 5:87). This hernia defect contains a nonobstructed small bowel loop and adjacent mesenteric fat. There is a diastases rectus. There is a 4.9 x 5.8 cm periumbilical hernia defect, likely incisional. This contains fat and a nonobstructed small bowel loop. There is a very small fat-containing left inguinal hernia. LYMPH NODES: Multiple para-aortic and aortocaval lymph nodes are redemonstrated. One of the largest para-aortic lymph nodes is located leftward anterior, with a short axis diameter of 7 mm (3:34). The largest aortocaval lymph node shows a short axis diameter of 1.2 cm (3:42). These are relatively stable from prior. In the right external iliac region (3:75), a lymph node is seen with short axis diameter 1.4 cm. There are shotty right inguinal lymph nodes. There are enlarged left inguinal lymph nodes, the largest within the common iliac chain showing a short axis diameter of 1.0 cm and in the external iliac chain towards the bifurcation 1.0 cm (3:45 and 60). There are shotty left inguinal lymph nodes. VASCULAR: Unremarkable. PELVIC VISCERA: The prostate and seminal vesicles are unremarkable. OSSEOUS STRUCTURES: There is multi-level marked thoracolumbar spondylosis. No acute or aggressive osseous finding is noted. CT/CT abdomen pelvis w IV con IMPRESSION: 1. There is a stable postoperative appearance status-post right hemicolectomy and right upper quadrant ileostomy placement. The ileostomy appears patent. 2. No residual or recurrent mass is noted. There is no ascites 3. There is stable mild enlargement of para-aortic, paracaval and bilateral iliac chain lymph nodes, as detailed. Recommend continued attention on imaging follow-up. 4. There are abdominal wall hernia defects, as noted. 5. There is again mild splenomegaly. 6. There is mild hepatic steatosis. 7. Skeletal findings again suggest DISH. No aggressive osseous lesion is seen. Fleischner guidelines were followed.
--- NOTE | ~2023-04-18 | CT_ITS ---
EXAMINATION: CT CHEST WITH CONTRAST CLINICAL INFORMATION: Response to therapy with colon carcinoma. COMPARISON: CT chest 11/07/2022. TECHNIQUE: Multidetector volumetric CT imaging of the chest was obtained after the administration of 85 mL of Omnipaque 350 intravenous contrast without immediate adverse reactions. Axial MIP volume rendering provided. Sagittal and coronal reformatted images were obtained. This CT examination was performed using dose optimization techniques as appropriate, variously including the following: *Automated exposure control *Adjustment of mA and/or kV according to patient size (this includes techniques or standardized protocols for targeted exams where dose is matched to indication/reason for exam; i.e. extremities or head) *Use of iterative reconstruction technique DLP: 771 mGy-cm FINDINGS: LUNGS: Biapical pleural-parenchymal thickening is present with continued presence of prominent reticulonodular pattern in the lungs. Again seen are 4 mm nodules in both the right as well as the left lower lobes, unchanged (5:212 and 213). No new lung nodules are seen. MEDIASTINUM: Right chest wall port again noted with its tip in the distal SVC. Calcified mediastinal and hilar lymph nodes are again noted, unchanged when compared to prior with the largest in the right paratracheal region measuring 1.6 x 1.4 cm (3:17 compare prior 3:18). The visualized thyroid is unremarkable. No aortic aneurysm. Heart size is normal. No coronary calcium. PLEURA: There is no pleural effusion. No pleural mass or thickening. AXILLA: No lymphadenopathy. UPPER ABDOMEN: Splenomegaly is again seen with the spleen measuring 16 cm in greatest transverse dimension. OSSEOUS STRUCTURES: Degenerative changes are present throughout the spine. No bony destructive lesions. CT/CT chest w IV con IMPRESSION: 1. No evidence of metastatic disease in the chest. 2. Stable 4 mm lung nodules. 3. Stable calcified mediastinal and hilar lymph nodes. 4. Stable splenomegaly. 5. Biapical pleural-parenchymal thickening is present with continued presence of prominent reticulonodular pattern in the lungs. Fleischner guidelines were followed.
[2023-04-18] MEDS: iohexoL 350 MG/ML 100 ML INFUS..BTL IV (09:38)
== END 2023-04-18 08:55 | disposition home or self-care (01) ==
LOC: HO.CT 08:54
PROVIDERS: PCP Internal Medicine; Visit Provider Internal Medicine
DX: C18.9 Malignant neoplasm of colon, unspecified (principal)
CPT/HCPCS: 71260; 74177; Q9967

== ENCOUNTER 2023-04-25 07:32 | Outpatient (AMB) | payer OTHER, SELFPAY ==
--- NOTE | 2023-04-25 07:43 | MHC.OFFVIS ---
Intake Vital Signs 04/25/23 07:47 Height 5 ft 9 in Pulse 87 Pulse Source Pulse Oximeter Pulse Oximetry (%) 98 Oxygen Delivery Method Room Air Intake Visit Reasons: 2 mo f/u- worsening neuropathy - Conf. Intake Note: Patient presents for 2 month f/u worsening neuropathy Allergies omeprazole Allergy (Verified 04/25/23 07:46) Hives Medication List - Last Reconciled 04/25/23 by Corinne Nguyen MD acetaminophen 650 mg PO BID allopurinol 300 mg PO DAILY alpha lipoic acid 600 mg PO DAILY duloxetine 60 mg PO DAILY gabapentin 600 mg PO TID Magic Mouthwash Diphen/Lido/Antacid 1:1:1 5 mL PO TID nystatin 5 mL PO TID ondansetron 1 tab PO Q8H ostomy supplies (Adhesive Remover Wipes) use around stoma as needed ostomy supplies Oostomy powder - apply to irritated skin around ostomy site ostomy supplies (SenSura Flex Ostomy Pouch) As directed ring (ostomy supply) As directed tramadol 50 mg PO BID PRN HPI HPI Comments History of Present Illness Details 57y/o male with h/o colon ca on chemo comes for follow up of neuropathy. His EMg was c/w asymmetric sensory motor neuropathy. Patient still smokes 1 pack q 3 days HE DID NOT START DULOXETINE OR ALPHA LIPOIC ACID SUGGESTED. HE DECLINED SLEEP STUDY His Vit D and Vit B 12 were low. He was diagnosed with invasive adenocarcinoma in distal right ascending colon in Feb 2020 . He had resection and started on chemo in May 2020 ( FOLFOX) . 6 months after he started chemo he started having numbness in her finger. tips and toes. He also tingling, burning sensation in his distal feet and fingers. He was started on gabapentin , tramadol for pain and numbness. The whole plantar surface and dorsal part are numb and has tingling. The symptoms are worse at night and wakes up with sharp pain in her feet. He also has difficulty staying asleep, excessive daytime fatigue and sleepiness. he has loud snoring, wakes up with dry throat. 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 Father No problems noted. Social History Household Members: None Housing: Apartment Are you a primary career and transition teacher to a significant other at home: No Do you presently have visiting nurse or other home services: No Alcohol intake: current Alcohol intake frequency: a few times a week Alcohol type: beer Comment: pre med Patient Tobacco Use Status: Current everyday Tobacco user Tobacco use type: Cigarette Cigarette Packs Per Day: 0 Years Smoked: 10 e-Cigarette/Vaping Use: Currently Using Second Hand Smoke Exposure: No Substance Use Type: Marijuana Advance Directives Date on File: 02/29/20 service: No Current occupational status: employed Physical Exam Vital Signs: Last Vital Signs Pulse 87 04/25/23 07:47 Pulse Ox 98 04/25/23 07:47 Oxygen Delivery Method Room Air 04/25/23 07:47 Const Orientation/consciousness: patient oriented x3 Eyes Pupils: Equal, round and reactive pupils present Neuro Other: numbness and hyperesthesia in arturo plantar surfaces and distal half of dorsum of arturo feet Mallampatti grade 4 General: patient oriented x3, tone normal, moves all extremities and no focal motor deficits Cranial nerves: Yes Equal, round and reactive pupils present, Yes Bilaterally intact EOM present, Yes Nystagmus not present, Yes Normal facial strength present, Yes Midline tongue present and Yes Symmetric palate elevation present Cognition (Neuro): normal cognition Gait exam (Neuro): Normal gait present Motor exam (neuro): 5/5 motor strength present throughout and Normal motor muscle tone present throughout Deep tendon reflexes (DTR's): Right triceps reflex intensity grade: 1+, Left triceps reflex intensity grade: 1+, Rt Biceps (C5, C6): 1+, Left biceps reflex intensity grade: 1+, Right brachioradialis reflex intensity grade: 0, Left brachioradialis reflex intensity grade: 0, Right patellar reflex intensity grade: 0, Left patellar reflex intensity grade: 0, Right ankle reflex intensity grade: 0 and Left ankle reflex intensity grade: 0 Results Reviewed Results Reviewed: EMG 2022 2. There is electrodiagnostic evidence for distal asymmetric sensorimotor peripheral neuropathy. 3. There is no electrodiagnostic evidence for right median neuropathy, lumbosacral plexopathy, or lumbar radiculopathy. CLINICAL COMMENT: His symptoms appear to have developed in a stocking-glove pattern. And it is not uncommon for small fiber peripheral neuorpathies such as chemotherapy-induced neuropathy to appear normal or asymmetric on NCS/EMG. Assessment & Plan Assessment & Plan (1) Peripheral neuropathy due to chemotherapy: Code(s): G62.0 - Drug-induced polyneuropathy; T45.1X5A - Adverse effect of antineoplastic and immunosuppressive drugs, initial encounter (2) Snoring: Code(s): R06.83 - Snoring (3) Hypersomnia: Code(s): G47.10 - Hypersomnia, unspecified Plan Vit B 12 and D were low- will forward to PCP for Vit B 12 injections I will start him on supplements EMG NCS LE reviewed Home sleep study to r/o sleep apnea declined gabapentin 600mg tid cymbalta 60 mg qam Alpha lipoic acid 600mg qd B complex qam Stressed compliance as the patient has not been taking the medications or supplements that was recommended. Medications: New cyanocobalamin (vitamin B-12) 3,000 mcg PO DAILY 30 caps 6RF cholecalciferol (vitamin D3) 125 mcg PO DAILY 30 caps 6RF Coding Level of Care Code Est Pt Level 4 (93494) Diagnoses Peripheral neuropathy due to chemotherapy G62.0; T45.1X5A Snoring R06.83 Hypersomnia G47.10
[2023-04-25 07:47] VITALS: PULSE 87; O2SAT 98
== END 2023-04-25 08:10 | disposition home or self-care (01) ==
PROVIDERS: PCP Internal Medicine; Visit Provider Psychiatry & Neurology Neurology
DX: G62.0 Drug-induced polyneuropathy (principal); T45.1X5A Adverse effect of antineoplastic and immunosuppressive drugs, initial encounter; R06.83 Snoring; G47.10 Hypersomnia, unspecified
CPT/HCPCS: 99214

== ENCOUNTER → 2023-04-25 07:32 | Outpatient (BNVA) | payer OTHER, SELFPAY | PROVIDERS: PCP Internal Medicine; Visit Provider Psychiatry & Neurology Neurology | DX: G62.0 Drug-induced polyneuropathy (principal); T45.1X5D Adverse effect of antineoplastic and immunosuppressive drugs, subsequent encounter; R06.83 Snoring; G47.10 Hypersomnia, unspecified | CPT/HCPCS: 99212 ==

== ENCOUNTER 2023-05-28 09:04 | Outpatient (AMB) | payer OTHER, SELFPAY ==
--- NOTE | 2023-05-28 09:04 | A.OFFVIS_ITS ---
Intake Intake Visit Reasons: 1 mo f/u -Worsening neuropathy - LVM Intake Note: Pt presents for one month follow up via telehealth visit for neuropathy. Pulp And Paper Tester Required: No Allergies omeprazole Allergy (Verified 05/28/23 09:05) Hives HPI HPI Comments History of Present Illness Details 57y/o male with h/o colon ca on chemo ca lls for follow up of neuropathy. 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 Patient still smokes 1 pack q 3 days HE DECLINED SLEEP STUDY He was diagnosed with invasive adenocarcinoma in distal right ascending colon in Feb 2020 . He had resection and started on chemo in May 2020 ( FOLFOX) . 6 months after he started chemo he started having numbness in her finger. tips and toes. He also tingling, burning sensation in his distal feet and fingers. He was started on gabapentin , tramadol for pain and numbness. The whole plantar surface and dorsal part are numb and has tingling. The symptoms are worse at night and wakes up with sharp pain in her feet. He also has difficulty staying asleep, excessive daytime fatigue and sleepiness. he has loud snoring, wakes up with dry throat. [facility] Medical History Hypersomnia Snoring 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 Father No problems noted. Social History Household Members: None Housing: Apartment Are you a primary family day care provider to a significant other at home: No Do you presently have visiting nurse or other home services: No Alcohol intake: current Alcohol intake frequency: a few times a week Alcohol type: beer Comment: pre med Patient Tobacco Use Status: Current everyday Tobacco user Tobacco use type: Cigarette Cigarette Packs Per Day: 0 Years Smoked: 10 e-Cigarette/Vaping Use: Currently Using Second Hand Smoke Exposure: No Substance Use Type: Marijuana Advance Directives Date on File: 02/29/20 service: No Current occupational status: employed Physical Exam Const Other: Alert and awake Mood stable speech normal General: cooperative Assessment & Plan Assessment & Plan (1) Peripheral neuropathy due to chemotherapy: Code(s): G62.0 - Drug-induced polyneuropathy; T45.1X5A - Adverse effect of antineoplastic and immunosuppressive drugs, initial encounter (2) Snoring: Code(s): R06.83 - Snoring (3) Hypersomnia: Code(s): G47.10 - Hypersomnia, unspecified Plan Vit B 12 and D were low- continue supplements EMG NCS LE reviewed Home sleep study to r/o sleep apnea declined gabapentin 600mg tid cymbalta 60 mg qam B complex qam Stressed compliance as the patient has not been taking the medications or supplements that was recommended. Medications: Discontinued alpha lipoic acid Discontinued Reason: Patient no longer taking 600 mg PO DAILY 30 caps 6RF Telehealth Telehealth Location of provider rendering services: practice address Location of patient: address on file Patient Identification confirmed using: Name, : Yes Telehealth method: voice only Patient verbally consented to treatment: Yes Patient verbally consented to billing insurance company: Yes Patient informed of any privacy concerns related to visit: Yes Minutes spent on Phone/Video with Pt.: 15 Coding Level of Care Code Tele Est Pt Level 3 (26882) Diagnoses Peripheral neuropathy due to chemotherapy G62.0; T45.1X5A Snoring R06.83 Hypersomnia G47.10 Time Spent (min) 15
== END 2023-05-28 15:37 | disposition home or self-care (01) ==
LOC: HO.HSMS 09:04
PROVIDERS: PCP Internal Medicine; Visit Provider Psychiatry & Neurology Neurology
DX: G62.0 Drug-induced polyneuropathy (principal); T45.1X5A Adverse effect of antineoplastic and immunosuppressive drugs, initial encounter; R06.83 Snoring; G47.10 Hypersomnia, unspecified
CPT/HCPCS: 99442

== ENCOUNTER → 2023-05-28 09:04 | Outpatient (BNVA) | payer OTHER, SELFPAY | PROVIDERS: PCP Internal Medicine; Visit Provider Psychiatry & Neurology Neurology ==

== ENCOUNTER 2023-09-16 09:41 | Outpatient (REF) | payer OTHER, SELFPAY ==
--- NOTE | ~2023-09-16 | CT_ITS ---
EXAMINATION: CT ABDOMEN AND PELVIS WITH CONTRAST CLINICAL INFORMATION: Colon cancer restaging COMPARISON: 04/18/2023 TECHNIQUE: Multidetector volumetric images were obtained from the superior aspect of the liver through the pubic symphysis following administration 85 mL of Omnipaque 350 intravenous contrast. Sagittal and coronal reformatted images were obtained on the technologist's workstation. Oral contrast: No This CT examination was performed using dose optimization techniques as appropriate, variously including the following: *Automated exposure control *Adjustment of mA and/or kV according to patient size (this includes techniques or standardized protocols for targeted exams where dose is matched to indication/reason for exam; i.e. extremities or head) *Use of iterative reconstruction technique DLP: 565 mGy-cm FINDINGS: LUNG BASES: Unremarkable. ABDOMINAL AND PELVIC WALL: Umbilical hernia containing fat and loops of small bowel without evidence of obstruction. Parastomal hernia again noted measuring 2.3 cm, containing nonobstructed loop of small bowel. LIVER AND BILIARY TREE: Hepatic steatosis. GALLBLADDER: Unremarkable. PANCREAS: Unremarkable. SPLEEN: Splenomegaly again noted with the spleen measuring 16.6 cm. ADRENAL GLANDS: Unremarkable. KIDNEYS AND URETERS: Unremarkable. GASTROINTESTINAL TRACT:Right hemicolectomy. End anastomosis is patent. Right upper quadrant ileostomy is patent. VASCULAR: Unremarkable. LYMPH NODES/PERITONEUM: Enlarged retroperitoneal and periaortic lymph nodes are unchanged. Reference periaortic node measures 0.9 cm in short axis (3:46), unchanged. Left external iliac lymph node measures 0.9 cm (3:59), unchanged. An aortocaval lymph node measures 1.1 cm (3:40), unchanged. FREE FLUID: None. BLADDER: Unremarkable. PELVIC VISCERA: The prostate is enlarged, similar to prior study. OSSEOUS STRUCTURES: Degenerative changes of the spine. CT/CT abdomen pelvis w IV con IMPRESSION: * Redemonstration of enlarged retroperitoneal and periaortic lymph nodes, unchanged from prior study. * Splenomegaly, similar to prior study. * Hepatic steatosis. * Right upper quadrant ileostomy is patent. * Parastomal hernia containing nonobstructed loop of small bowel. * Umbilical hernia containing fat and loops of small bowel without evidence of obstruction.
[2023-09-16] MEDS: iohexoL 350 MG/ML 100 ML INFUS..BTL 85 ML IV (10:30)
== END 2023-09-16 09:42 | disposition home or self-care (01) ==
LOC: HO.CT 09:41
PROVIDERS: PCP Internal Medicine; Visit Provider Internal Medicine
DX: C18.9 Malignant neoplasm of colon, unspecified (principal)
CPT/HCPCS: 74177; Q9967

== ENCOUNTER 2024-02-03 08:16 | Outpatient (REF) | payer OTHER, SELFPAY ==
--- NOTE | ~2024-02-03 | PE_ITS ---
EXAMINATION: Fluorine-18 FDG PET/CT Scan CLINICAL INDICATION: Subsequent treatment management. Malignant neoplasm of colon. Chemotherapy, last treatment 3 weeks ago. PROCEDURE: 61 minutes following the intravenous administration of 21.9 mCi of fluorine 18 FDG, images from the base of the skull to the mid thighs were obtained using a combined PET/CT scanner with CT scan based attenuation correction. No oral contrast was administered. No intravenous contrast was administered. Transverse, coronal, sagittal, and volume reconstruction projections were obtained. The patient's blood glucose cannot be determined due to a malfunction of the glucometer. Total CT exam dose-length product 1126.18 mGy-cm * These CT images were obtained using dose optimization techniques as appropriate, variously including the following: Automated exposure control * Adjustment of mA and/or kV according to patient size (this includes techniques or standardized protocols for targeted exams where dose is matched to indication/reason for exam; i.e. extremities or head) * Use of iterative reconstruction technique COMPARISON: The report of a previous PET/CT scan dated 04/19/2020 is available, but the images from that study are not available for comparison. FINDINGS: (Slice numbers described in this report are numbered superiorly to inferiorly with slice #1 in the head) NECK AND VISUALIZED HEAD: No foci of abnormal FDG activity are noted. The distribution of FDG activity is physiological. There is no cervical lymphadenopathy. THORAX: There are no foci of abnormal FDG activity. No pulmonary nodules are visualized. 0.4 cm lower lobe nodules visualized in each lung on the 04/18/[address] scan are not apparent on these nondiagnostic CT images. There is no pleural or pericardial fluid or pneumothorax. Calcified right hilar and periaortic lymph nodes are unchanged in appearance from 04/18/2023 and show no associated abnormal FDG activity. There is no additional mediastinal, supraclavicular, or axillary lymphadenopathy. A right-sided chest port with internal jugular catheter terminating in the superior vena cava is noted. ABDOMEN AND PELVIS: The patient is status post right hemicolectomy and a right lower quadrant ileostomy is in place. An anterior midline anastomotic suture line is visualized with no associated abnormal FDG activity. The liver, gallbladder, spleen, kidneys, adrenal glands and pancreas appear unremarkable. Previously visualized retroperitoneal and left external iliac lymph nodes appear unchanged and show no abnormal FDG activity: A left periaortic node at the L5 level measuring 1.3 x 0.9 cm in largest transverse dimensions, slice 166/267; a left external iliac lymph node measuring 1.2 x 1.1 cm in largest transverse dimensions with dense calcifications, slice 187/267 and an aortogram caval 1.5 x 1.1 cm node, slice 155/267. There are no foci of abnormal FDG activity in the abdomen or pelvis. The pelvic organs are unremarkable. MUSCULOSKELETAL: There are no foci of abnormal FDG activity in the osseous structures. There are diffuse degenerative changes in the spine but no suspicious sclerotic or lytic lesions are visualized. VASCULAR: No significant abnormalities are present. Reference SUVmax Levels: Mediastinal Blood Pool: 2.2, Slice 79/267 Liver: 3.9, Slice 111/267 PET/PET CT fusion skull to thigh IMPRESSION: No abnormalities suspicious for recurrent or metastatic malignancy are visualized. Electronically signed by: Bry Ramsey MD 02/05/2024 09:47 AM EDT
== END 2024-02-03 08:17 | disposition home or self-care (01) ==
LOC: HO.PET 08:16
PROVIDERS: PCP Internal Medicine; Visit Provider Internal Medicine
DX: Z13.89 Encounter for screening for other disorder (principal)

== ENCOUNTER 2024-03-23 09:56 | Outpatient (AMB) | payer OTHER, SELFPAY ==
[2024-03-23 10:21] VITALS: BMI 32.9
--- NOTE | 2024-03-23 10:21 | MHC.OFFVIS ---
Vital Signs 03/23/24 10:21 Height 5 ft 9 in Weight 223 lb 1.725 oz BMI 32.9 Intake Visit Reasons: Rash in groin area/poss. I & D Intake Note: This patient presents for rash on the groin, possible I&D. Pt c/o; reports bilateral groin lesions, reports pain/discomfort, reports he completed a course of antibiotics with no improvement. Residential Treatment Counselor Required: No Accompanied by: Self / Same As Patient Allergies omeprazole Allergy (Verified 03/23/24 10:32) Hives HPI HPI Rash in groin area/poss. I & D: Details: He was referred for an abscess in the left groin area. He said that he had been on antibiotics for this area of swelling but this has not improved. Denies any fever or chills He has known colon cancer and is undergoing treatment for metastatic disease. He has an ileostomy which was bound functioning well. He denies any problems with this. [facility], [facility] Medical History (Updated 03/23/24 @ 10:53 by Gary Tijerina MD) Abscess of left groin Hypersomnia Snoring 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 Father No problems noted. Social History Household Members: None Housing: Apartment Are you a primary ocular care technologist to a significant other at home: No Do you presently have visiting nurse or other home services: No Alcohol intake: current Alcohol intake frequency: a few times a week Alcohol type: beer Comment: pre med Patient Tobacco Use Status: Current everyday Tobacco user Tobacco use type: Cigarette Cigarette Packs Per Day: 0 Years Smoked: 10 e-Cigarette/Vaping Use: Currently Using Second Hand Smoke Exposure: No Substance Use Type: Marijuana Advance Directives Date on File: 02/29/20 service: No Current occupational status: employed Review of Systems Const Denies chills and Denies fever(s) Card Denies chest pain at rest Resp Denies cough GI Denies abdominal pain Physical Exam Vital Signs: BMI result Body Mass Index 32.9 Const General: comfortable and no acute distress Resp Effort & Inspection: normal respiratory effort GI Other: Stoma functioning well, abdomen is soft Left groin area with note of a fluctuant mass about 2.5 cm, tender Office Procedures I&D Drain Details: He was in supine position. The area of the abscess in the left groin was prepped and draped. Lidocaine 1% was used for local anesthesia. I made an incision on the skin overlying the abscess with a blade 11. I carried this down to enter an abscess cavity. Purulent material was drained. I used a Q-tip to bluntly dissect the cavity to make sure that there were no residual loculations Dressings were applied. The procedure was completed. He tolerated procedure well. There was minimal blood loss. He was given wound care instructions. He can take Tylenol and ibuprofen for pain p.r.n.. [id number] of Skin Abscess, complex All charges added?: Procedure code (CPT) selection complete Assessment & Plan Assessment & Plan (1) Abscess of left groin: Code(s): L02.214 - Cutaneous abscess of groin Category: Medical Plan: I explained to him the need to do an I and D under local anesthesia. I explained the technique of the procedure as well as the risks, benefits, and alternatives. He had given consent I&D was done and he tolerated this well. I gave him wound instructions. He will be seen in the office p.r.n. basis. He has completed the course of oral antibiotics so I will not prescribe him more antibiotics at this time. Coding Level of Care Code Est Pt Level 3 (67463) Diagnoses Abscess of left groin L02.214 CPT Codes I&D Drain - Drain 2: [id number] of Skin Abscess, complex ([id number])
== END 2024-03-23 10:50 | disposition home or self-care (01) ==
PROVIDERS: PCP Internal Medicine; Visit Provider Surgery
DX: L02.214 Cutaneous abscess of groin (principal)
CPT/HCPCS: 10060; 99213

== ENCOUNTER → 2024-03-23 09:56 | Outpatient (BNVA) | payer OTHER, SELFPAY | PROVIDERS: PCP Internal Medicine; Visit Provider Surgery | DX: L02.214 Cutaneous abscess of groin (principal); Z93.2 Ileostomy status | CPT/HCPCS: 10060; 99212 ==

== ENCOUNTER 2024-06-02 09:23 | Outpatient (REF) | payer OTHER, SELFPAY ==
--- NOTE | ~2024-06-02 | CT_ITS ---
CLINICAL HISTORY: Assess response to treatment CT abdomen and pelvis with contrast Comparison: CT/SR - CT ABDOMEN PELVIS W IV CON - 09/16/23 10:04 EDT Findings: No consolidation or effusion. Small left renal cyst unchanged. There is a adrenal atrophy Unchanged. There is splenomegaly unchanged. Solid organs are otherwise unremarkable. The gallbladder is normal. Right lower quadrant ileostomy with parastomal herniation of nonobstructed small bowel unchanged. Umbilical hernia Again noted. This is relatively unchanged. There is no evidence of small-bowel obstruction though there is a greater portion of the small bowel loop within the defect. Status post right hemicolectomy. Mildly enlarged retroperitoneal lymph nodes are again noted and unchanged. Pelvic contents unremarkable. Normal appendix. No acute fracture. IMPRESSION: No significant interval changes. Retroperitoneal adenopathy is unchanged as are all of the other findings described above. This document has been electronically signed by: Pedro Bose MD on 06/02/2024 13:28:12
--- NOTE | ~2024-06-02 | CT_ITS ---
CLINICAL HISTORY: Assess response to treatment CT chest with contrast Comparison: CT/GA/SR - CT CHEST W IV CON - 04/18/23 09:12 EST Findings: A right-sided MediPort is present with its tip near the SVC right atrial junction. Apparent thrombus adjacent to the catheter appears to represent mixing of opacified and unopacified blood. Calcified mediastinal and hilar lymph nodes are again noted and unchanged. Parenchymal scarring and paraseptal emphysema primarily in the upper lobes appears relatively unchanged. The visualized upper abdomen is unremarkable. The bones are intact. IMPRESSION: 1.Findings as described above with no significant interval changes noted. This document has been electronically signed by: Pedro Bose MD on 06/02/2024 13:40:33
[2024-06-02] MEDS: iohexoL 350 MG/ML 100 ML INFUS..BTL IV (09:58)
== END 2024-06-02 09:24 | disposition home or self-care (01) ==
LOC: HO.CT 09:23
PROVIDERS: PCP Internal Medicine; Visit Provider Internal Medicine
DX: C18.9 Malignant neoplasm of colon, unspecified (principal); Z85.038 Personal history of other malignant neoplasm of large intestine
CPT/HCPCS: 71260; 74177; Q9967

== ENCOUNTER → 2024-06-02 09:27 | Outpatient (BNV) | payer OTHER, SELFPAY | PROVIDERS: PCP Internal Medicine; Visit Provider Radiology Diagnostic Radiology | DX: K76.89 Other specified diseases of liver (principal); Z09 Encounter for follow-up examination after completed treatment for conditions other than malignant neoplasm; K68.9 Other disorders of retroperitoneum | CPT/HCPCS: 71260; 74177 ==